=== PATIENT | female | born 1945 | race Caucasian/White ===

== ENCOUNTER → 2018-02-02 | Day surgery (SDC) | END | disposition home or self-care (01) | DX: Z45.2 Encounter for adjustment and management of vascular access device (principal) ==

== ENCOUNTER 2018-02-11 11:43 | Inpatient (IN) | payer MEDICARE, BC ==
[~2018-02-11] VITALS: Ht 152.4 cm; Wt 60.3 kg
[2018-02-11] VITALS: BP 106/78
[~2018-02-11 11:43] MED LIST: CALC667C6 PO; CARB1TAB39 PO; ENOX60DI8 SQ; OMEP20CA10 GT
[2018-02-11 12:17] LABS: BASOPHILS % (AUTO) 0.2 % (0.0-2.0); EOSINOPHILS % (AUTO) 0.1 % (0.0-6.0); HEMATOCRIT 22 % (33-45); HEMOGLOBIN 7.2 g/dL (11.5-14.8); LYMPHOCYTES # (AUTO) 0.5 /CMM (0.8-4.8); LYMPHOCYTES % (AUTO) 3.8 % (20.0-44.0); MEAN CORPUSCULAR HGB CONC 34 g/dl (31.0-36.0); MEAN CORPUSCULAR VOLUME 85 fL (82-100); MONOCYTES # (AUTO) 0.6 /CMM (0.1-1.30); MONOCYTES % (AUTO) 4.2 % (2.0-12.0); NEUTROPHILS # (AUTO) 12.4 /CMM (1.8-8.9); NEUTROPHILS % (AUTO) 91.7 % (43.0-81.0); PLATELET COUNT (AUTO) 363 /CMM (150-450); RED BLOOD CELL COUNT(AUTO) 2.52 MIL/uL (4.0-5.2); WHITE BLOOD COUNT (AUTO) 13.5 K/uL (4.3-11.0)
[2018-02-11] MEDS ORDERED: VANC1VIA2 IV (12:25)
[2018-02-11 12:45] LABS: ALANINE AMINOTRANSFERASE 19 U/L (12-78); ALBUMIN 1.7 g/dL (3.4-5.0); ALKALINE PHOSPHATASE 99 U/L (46-116); ASPARTATE AMINOTRANSFERASE 33 U/L (15-37); BILIRUBIN,DIRECT 0.1 mg/dL (0.0-0.2); BILIRUBIN,TOTAL 0.3 mg/dL (0.2-1.0); CALCIUM, SERUM 8.1 mg/dL (8.5-10.1); CARBON DIOXIDE 26 mmol/L (21-32); CHLORIDE 85 mmol/L (98-107); CREATININE 1.2 mg/dL (0.6-1.3); GLUCOSE 121 mg/dL (74-106); POTASSIUM 3.6 mmol/L (3.5-5.1); TOTAL PROTEIN, SERUM 5.1 g/dL (6.4-8.2); UREA NITROGEN, BLOOD 18 mg/dL (7-18)
[2018-02-11 12:50] LABS: APPEARANCE,URINE Clear (CLEAR); BILIRUBIN,URINE Negative (NEGATIVE); BLOOD, URINE Small Ery/uL (NEGATIVE); COLOR,URINE Yellow (YELLOW); KETONES,URINE Negative (NEGATIVE); LEUKOCYTE ESTERASE ,URINE Small (NEGATIVE); NITRITE, URINE Negative (NEGATIVE); PROTEIN,URINE 30 mg/dl (NEGATIVE); UGLUCOSE Negative (NEGATIVE); UROBILINOGEN,URINE 0.2 EU/dL (0.2)
[2018-02-11 12:58] LABS: SODIUM SERUM 117 mmol/L (136-145)
--- NOTE | 2018-02-11 12:59 | NUR ---
CALLED NURSING SUP REQUESTED TELE BED FOR THIS PATIENT.
[2018-02-11 13:12] LABS: BACTERIA,URINE Few /HPF (None Seen); SQUAMOUS EPITHELIAL CELL,UR Few /HPF (None Seen); YEAST,URINE Moderate /HPF (None Seen)
[2018-02-11] MEDS ORDERED: GENTAMICIN 80 MG in IV D5W 50 ML IV ONE (13:30)
[2018-02-11] MEDS ORDERED: IV NS 0.9% 500 ML BAG IV ONE (13:30)
--- NOTE | 2018-02-11 13:49 | NUR ---
PANEL ON-CALL PAGED
--- NOTE | 2018-02-11 14:38 | NUR ---
REPORT GIVEN TO ADELFO. AWAITING TRANFER TO FLOOR.
--- NOTE | 2018-02-11 15:15 | NUR ---
LONG FILLER CIGAR ROLLER MACHINEDIGESTER OPERATOR NOTES RECEIVED PT FROM ER TO ROOM 116-2 VIA [email or web address].ALERT/ORIENTED X1,NONVERBAL.ON TELE HR IS 90'S WITH SR.ON 2 L O2 VIA NC CONTINUOUSLY.NO SOB AND ACUTE DISTRESS NOTED.2LUMEN PICC LINE ON RIGHT UA,SITE IS CLEAN,DRY AND INTACT.IV 0.9% 500ML IS RUNNING.SKIN ASSESSMENT IS DONE,NOTED WITH PRESSURE SORE ON SACRAL AND BRUISES ON B/L ARMS.VITAL SIGNS ARE CHECKED AND RECORDED.SAFETY IS MAINTAINED AT ALL TIMES.BED IS IN LOW POSITION AND LOCKED.CALL LIGHT IS WITHIN REACH.WILL CONTINUE TO MONITOR THE PT CLOSELY.
[2018-02-11 16:00] VITALS: BP 125/67
--- NOTE | 2018-02-11 17:15 | NUR ---
PORTFOLIO ANALYST NOTES INGA JOSE SEEN THE PT AND ORDERED TO CHANGE FC PER FAMILY REQUEST.
[2018-02-11] MEDS ORDERED: FEE PK DOSING 1 MIN EA MC ONE (17:59)
[2018-02-11] MEDS ORDERED: MAGNESIUM HYDROXIDE 30 ML UDC PO PRN (18:00)
[2018-02-11] MEDS ORDERED: ONDANSETRON HCL/PF 4 MG/2 ML VIAL IVP PRN (18:00)
[2018-02-11] MEDS ORDERED: HYDROCODONE/APAP 5/325MG 1 EACH TABLET PO PRN (18:00)
[2018-02-11] MEDS ORDERED: Z GUARD REMEDY 2 OZ OINT TP PRN (18:00)
[2018-02-11] MEDS ORDERED: IV NS 0.9% 1,000 ML IV PRN ×2 (18:00→19:00)
[2018-02-11] MEDS ORDERED: ZOLPIDEM TARTRATE 5 MG TABLET PO PRN (18:00)
--- NOTE | 2018-02-11 18:30 | NUR ---
REGIONAL TRANSFER LIAISON NOTES FC 16FR IS CHANGED,GOOD URINE RETURN.NO COMPLICATIONS NOTED.
--- NOTE | 2018-02-11 18:49 | NUR ---
CALENDER MACHINE OPERATOR CLOSING NOTES PT IS LYING ON BED WITH 2L O2 VIA NC,TOLERATING WELL.NO SOB AND ACUTE DISTRESS NOTED.RESPIRATION IS EVEN AND NONLABORED.ENDORSED TO GOLD BUYER RN FOR FAUZIA AND FOLLOW UP WITH ABG.
[2018-02-11] MEDS: ACETYLCYSTEINE 10% SOLN 400 MG/4 ML VIAL NEB SCH ×2 (19:00→23:27)
--- NOTE | 2018-02-11 19:00 | NUR ---
Q8 MUCOMYST SCHEDULED @ 1900 NOT GIVEN, WILL ADMINISTER AT 2300 . NERI WOOD NOTIFIED.
[2018-02-11 19:22] LABS: ABG BASE EXCESS -0.4 mmol/L; ABG PCO2 34.8 mmHg (35.0-45.0); ABG PH 7.447 (7.350-7.450); ABG PO2 68.7 mmHg (75.0-100.0); AaDO2 89.9 mmHg; MetHb 0.8 % (0.0-1.5); O2Hb 92.3 % (94.0-97.0); SITE, ABG Right Radial; VENT MODE, BG NASAL CANNULA
[2018-02-11] MEDS: LEVOFLOXACIN 750 MG /D5W 150ML 750 MG in PREMIX 1 EA IV SCH (19:41)
[2018-02-11 20:00] VITALS: BP 91/51
--- NOTE | 2018-02-11 20:00 | NUR ---
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 NEEDS ATTENDED, CALL LIGHT WITHIN REACH.
[2018-02-11] MEDS: VANCOMYCIN 1 GM in IV D5W 250 ML IV SCH (20:24)
[2018-02-11 20:47] LABS: CALCIUM, SERUM 7.7 mg/dL (8.5-10.1); CARBON DIOXIDE 26 mmol/L (21-32); CHLORIDE 86 mmol/L (98-107); CREATININE 1.2 mg/dL (0.6-1.3); GLUCOSE 227 mg/dL (74-106); POTASSIUM 3.1 mmol/L (3.5-5.1); UREA NITROGEN, BLOOD 17 mg/dL (7-18)
[2018-02-11 20:51] LABS: SODIUM SERUM 118 mmol/L (136-145)
--- NOTE | 2018-02-11 22:10 | NUR ---
RN NOTES ABG DONE, DR. SALGADO NOTIFIED, NO NEW ORDERS
[2018-02-11] MEDS: IPRATROPIUM NEB FS 0.5 MG/2.5 ML AMPUL.NEB NEB PRN (23:28)
[2018-02-11] MEDS: ALBUTEROL FS 2.5 MG/0.5 ML VIAL.NEB NEB PRN (23:28)
[2018-02-12] VITALS: BP 106/78
[2018-02-12 01:27] LABS: CALCIUM, SERUM 8.2 mg/dL (8.5-10.1); CARBON DIOXIDE 26 mmol/L (21-32); CHLORIDE 88 mmol/L (98-107); CREATININE 1.2 mg/dL (0.6-1.3); GLUCOSE 111 mg/dL (74-106); POTASSIUM 3.4 mmol/L (3.5-5.1); SODIUM SERUM 121 mmol/L (136-145); UREA NITROGEN, BLOOD 16 mg/dL (7-18)
[2018-02-12] MEDS: IV NS 0.9% 1,000 ML IV PRN ×2 (03:41→09:22)
--- NOTE | 2018-02-12 03:43 | NUR ---
RN NOTES DR. NAOMI NAM REDUCED IVF RATE TO 60 CC/HR, PATIENT HAS CRACKLES TO LUNG SOUNDS.
[2018-02-12 04:09] VITALS: BP 105/68
--- NOTE | 2018-02-12 06:22 | NUR ---
RN NOTES PATIENT IS ALERT AND AWAKE, NON-VERBAL, ON 2LPM VIA NC, SPO2 98-100%, NOT IN APPARENT DISTRESS, ABG DONE, NO NEW ORDER, LUNG SOUNDS WITH CRACKLES, MD NOTIFIED, DECREASED IVF TO NS AT 60 CC/HR, HYPONATREMIA, SODIUM LEVEL 121, HGB 7.2. MEMBERSHIP ADVISOR NORRIS AWARE, NO BLOOD TRANSFUSION ORDER YET. SCHMITT CATHETER INSERTED BY AM NURSE 02/11/18, DRAINING WELL, JOSE PICC LINE IS PATENT AND SECURED WITH DRY AND INTACT DRESSING, SACRAL STAGE 4 DECUB, WOUND CARE PERFORMED, AWAITING WOUND CONSULT, NPO TILL ST EVAL, ID CONSULT, BREATHING TX, URINE STUDIES TO R/O SIADH, TREND SODIUM SERUM OSMOLALITY, SUCTION PRN
[2018-02-12] MEDS: ACETYLCYSTEINE 10% SOLN 400 MG/4 ML VIAL NEB SCH ×3 (06:59→22:55)
[2018-02-12 07:43] LABS: BASOPHILS % (AUTO) 0.1 % (0.0-2.0); EOSINOPHILS % (AUTO) 0.1 % (0.0-6.0); LYMPHOCYTES # (AUTO) 0.5 /CMM (0.8-4.8); LYMPHOCYTES % (AUTO) 4.1 % (20.0-44.0); MEAN CORPUSCULAR HGB CONC 34 g/dl (31.0-36.0); MEAN CORPUSCULAR VOLUME 85 fL (82-100); MONOCYTES # (AUTO) 0.5 /CMM (0.1-1.30); MONOCYTES % (AUTO) 4.3 % (2.0-12.0); NEUTROPHILS # (AUTO) 10.9 /CMM (1.8-8.9); NEUTROPHILS % (AUTO) 91.4 % (43.0-81.0); PLATELET COUNT (AUTO) 296 /CMM (150-450); RED BLOOD CELL COUNT(AUTO) 2.17 MIL/uL (4.0-5.2); WHITE BLOOD COUNT (AUTO) 11.9 K/uL (4.3-11.0)
[2018-02-12 08:00] VITALS: BP_SYST 103; BP_SYST 104; BP_DIAS 61; BP_DIAS 64
[2018-02-12 08:02] LABS: ALANINE AMINOTRANSFERASE 16 U/L (12-78); ALBUMIN 1.5 g/dL (3.4-5.0); ALKALINE PHOSPHATASE 85 U/L (46-116); ASPARTATE AMINOTRANSFERASE 24 U/L (15-37); BILIRUBIN,TOTAL 0.3 mg/dL (0.2-1.0); CARBON DIOXIDE 24 mmol/L (21-32); CHLORIDE 92 mmol/L (98-107); CREATININE 1.1 mg/dL (0.6-1.3); GLUCOSE 92 mg/dL (74-106); MAGNESIUM 1.4 mg/dL (1.8-2.4); PHOSPHORUS 3.1 mg/dL (2.5-4.9); POTASSIUM 3.3 mmol/L (3.5-5.1); SODIUM SERUM 125 mmol/L (136-145); TOTAL PROTEIN, SERUM 4.5 g/dL (6.4-8.2); UREA NITROGEN, BLOOD 17 mg/dL (7-18)
[2018-02-12 08:33] LABS: FERRITIN 1983 ng/mL (8-388); THYROID STIMULATING HORMONE 0.797 uIU/mL (0.358-3.74)
[2018-02-12 08:58] LABS: HEMATOCRIT 18 % (33-45); HEMOGLOBIN 6.2 g/dL (11.5-14.8)
[2018-02-12] MEDS: CARBIDOPA/LEVA CR 25/100MG 1 TAB.SA PO SCH (09:00)
[2018-02-12] MEDS: HEPARIN SODIUM, PORCINE 5000 UNITS/1 ML VIAL SQ SCH ×2 (09:00→21:43)
[2018-02-12] MEDS: Magnesium 1GM/D5W 100ML PREMIX 100 ML IV SCH ×3 (09:57→11:46)
[2018-02-12] MEDS ORDERED: POTASSIUM CHLORIDE 20 MEQ TAB.PRT.SR PO ONE (10:00)
[2018-02-12 10:04] LABS: IRON, SERUM 10 ug/dl (50-175); TOTAL IRON BINDING CAPACITY 101 ug/dl (250-450)
--- NOTE | 2018-02-12 10:41 | NUR ---
RN NOTES RECEIVED PT ALERT/ORIENTED X1,NONVERBAL.ON.ON 2 L O2 VIA NC CONTINUOUSLY.NO SOB AND ACUTE DISTRESS NOTED.2LUMEN PICC LINE ON RIGHT UA,SITE IS CLEAN,DRY AND INTACT.IV 0.9% 1000ML IS RUNNING AT 60 FOR 16 HOURS AND 40 MINUTES PER DOCTOR ORDERS.SKIN ASSESSMENT IS DONE,NOTED WITH PRESSURE SORE ON SACRAL AND BRUISES ON B/L ARMS.VITAL SIGNS ARE CHECKED AND RECORDED.SAFETY IS MAINTAINED AT ALL TIMES.BED IS IN LOW POSITION AND LOCKED.CALL LIGHT IS WITHIN REACH.WILL CONTINUE TO MONITOR THE PT CLOSELY.
[2018-02-12 12:00] VITALS: BP_SYST 103; BP_SYST 104; BP_DIAS 61; BP_DIAS 63
[2018-02-12 13:07] LABS: BASOPHILS % (AUTO) 0.1 % (0.0-2.0); LYMPHOCYTES # (AUTO) 0.4 /CMM (0.8-4.8); LYMPHOCYTES % (AUTO) 3.3 % (20.0-44.0); MEAN CORPUSCULAR HGB CONC 33 g/dl (31.0-36.0); MEAN CORPUSCULAR VOLUME 86 fL (82-100); MONOCYTES # (AUTO) 0.5 /CMM (0.1-1.30); MONOCYTES % (AUTO) 4.4 % (2.0-12.0); NEUTROPHILS # (AUTO) 11.5 /CMM (1.8-8.9); NEUTROPHILS % (AUTO) 92.2 % (43.0-81.0); PLATELET COUNT (AUTO) 329 /CMM (150-450); RED BLOOD CELL COUNT(AUTO) 2.29 MIL/uL (4.0-5.2); WHITE BLOOD COUNT (AUTO) 12.4 K/uL (4.3-11.0)
[2018-02-12 13:08] LABS: BAND % (MANUAL) 4 % (0.0-5.0); LYMPHOCYTES % (MANUAL) 7 % (16-48); MONOCYTES % (MANUAL) 7 % (0-11.0); NEUTROPHILS % (MANUAL) 82 (42-76)
[2018-02-12 13:59] LABS: HEMATOCRIT 20 % (33-45); HEMOGLOBIN 6.6 g/dL (11.5-14.8)
[2018-02-12] MEDS: VANCOMYCIN 1 GM in IV D5W 250 ML IV SCH (14:00)
[2018-02-12 16:00] VITALS: BP_SYST 103; BP_SYST 104; BP_DIAS 43; BP_DIAS 63
[2018-02-12 16:21] LABS: BAND % (MANUAL) 1 % (0.0-5.0); LYMPHOCYTES % (MANUAL) 4 % (16-48); MONOCYTES % (MANUAL) 4 % (0-11.0); NEUTROPHILS % (MANUAL) 90 (42-76); REACTIVE LYMPHOCYTES 1 % (0-0)
--- NOTE | 2018-02-12 18:22 | NUR ---
UNABLE TO OBTAIN MEDICAL RECORDS REQUESTION . hOSPITAL MEDICAL RECORDS CLOSED ON SUNDAYS. WILL ENDORSE TO NEXT SHIFT NURSE TO OBTAIN MEDICAL RECORDS TOMORROW WHICH IS A WEEK DAY.
[2018-02-12 20:00] VITALS: BP 132/57
--- NOTE | 2018-02-12 20:00 | NUR ---
NAMAN RN NOTE PT IS IN BED OBTUNDED. NO DISTRESS OR DISCOMFORT NOTED. NO S/S OF PAIN NOTED. ON TELE MONITOR SR HR 94. JOSE WITH PICC LINE INFUSING NS @ 60 ML/HR, NO S/S INFILTRATION NOTED. JOSE ALSO WEEPING KEPT THE ARM CLEAN AND DRY. REPOSITION HER FOR SKIN MANAGEMENT. SIDE RAILS UP X 3 AND CALL LIGHT WITHIN REACH. VSS. CONTINUE TO MONITOR HER.
[2018-02-12] MEDS: IPRATROPIUM NEB FS 0.5 MG/2.5 ML AMPUL.NEB NEB PRN (22:55)
[2018-02-12] MEDS: ALBUTEROL FS 2.5 MG/0.5 ML VIAL.NEB NEB PRN (22:55)
[2018-02-13] VITALS (11 sets, daily range): BP systolic 111–138; BP diastolic 54–72
--- NOTE | 2018-02-13 01:30 | NUR ---
NAMAN RN NOTE DR SALGADO INFORMED THAT PT DAUGHTER DO NOT WANT HEPARIN TO BE GIVEN. ALSO PT H/H IS LOW, GAVE NEW ORDER TO DC IT. ORDER NOTED AND CARRIED OUT.
--- NOTE | 2018-02-13 03:00 | NUR ---
NAMAN RN NOTE PT O2 SAT IS CAME DOWN TO 91% ON 3 L N/C. RT PUT THE MASK BACK ON WITH 5L O2 SAT CAME UP TO 96%. KEPT HER HOB ELEVATED. CONTINUE TO MONITOR HER.
[2018-02-13] MEDS: IV NS 0.9% 1,000 ML IV PRN (06:04)
--- NOTE | 2018-02-13 06:32 | NUR ---
NAMAN RN NOTE PT IN BED ASLEEP, AROUSABLE. NO DISTRESS OR DISCOMFORT NOTED. NO S/S OF PAIN NOTED. IVF NS INFUSING AT 60 ML/HR, NO S/S OF INFILTRATION NOTED. KEPT HER DRY AND CLEAN. REPOSITION HER Q2H, ALL NEEDS ATTENDED. SIDE RAILS UP X 3 AND CALL LIGHT WITHIN REACH. WILL ENDORSE TO DAY SHIFT NURSE FOR CONTINUE TO CARE.
--- NOTE | 2018-02-13 07:00 | NUR ---
RN NOTE RECEIVED PT ON BED , NONVERBAL, ON SIMPLE MASK AT 5L , O2 SAT 99% AT THIS TIME,NO DISTRESS NOTED , ON TELE SR, HR IN 80'S , SCHMITT DRAINING TO GRAVITY, RIGHT UPPER PICC LINE SITE CLEAN ,DRY AND INTACT, WITH NS AT 60 ML/HR RUNNING , SIDE RAILS UP X 3 AND CALL LIGHT WITHIN REACH. BED LOCKED AND IN LOWEST POSITION, CONTINUE TO MONITOR HER.
[2018-02-13 07:17] LABS: BASOPHILS % (AUTO) 0.3 % (0.0-2.0); EOSINOPHILS % (AUTO) 0.1 % (0.0-6.0); LYMPHOCYTES # (AUTO) 0.5 /CMM (0.8-4.8); LYMPHOCYTES % (AUTO) 4.5 % (20.0-44.0); MEAN CORPUSCULAR HGB CONC 34 g/dl (31.0-36.0); MEAN CORPUSCULAR VOLUME 86 fL (82-100); MONOCYTES # (AUTO) 0.6 /CMM (0.1-1.30); MONOCYTES % (AUTO) 5.2 % (2.0-12.0); NEUTROPHILS # (AUTO) 9.9 /CMM (1.8-8.9); NEUTROPHILS % (AUTO) 89.9 % (43.0-81.0); PLATELET COUNT (AUTO) 329 /CMM (150-450); RED BLOOD CELL COUNT(AUTO) 2.26 MIL/uL (4.0-5.2); WHITE BLOOD COUNT (AUTO) 11.1 K/uL (4.3-11.0)
[2018-02-13 07:27] LABS: HEMATOCRIT 20 % (33-45); HEMOGLOBIN 6.6 g/dL (11.5-14.8)
[2018-02-13 07:54] LABS: CALCIUM, SERUM 7.6 mg/dL (8.5-10.1); CARBON DIOXIDE 27 mmol/L (21-32); CHLORIDE 96 mmol/L (98-107); CREATININE 1.4 mg/dL (0.6-1.3); GLUCOSE 117 mg/dL (74-106); MAGNESIUM 2.2 mg/dL (1.8-2.4); PHOSPHORUS 4.1 mg/dL (2.5-4.9); POTASSIUM 3.7 mmol/L (3.5-5.1); SODIUM SERUM 130 mmol/L (136-145); UREA NITROGEN, BLOOD 16 mg/dL (7-18)
[2018-02-13] MEDS: ACETYLCYSTEINE 10% SOLN 400 MG/4 ML VIAL NEB SCH ×3 (07:56→23:33)
[2018-02-13] MEDS: VANCOMYCIN 1 GM in IV D5W 250 ML IV SCH (08:00)
[2018-02-13 08:05] LABS: URIC ACID 6.8 mg/dL (2.6-7.2)
[2018-02-13 08:10] LABS: BAND % (MANUAL) 1 % (0.0-5.0); LYMPHOCYTES % (MANUAL) 8 % (16-48); MONOCYTES % (MANUAL) 5 % (0-11.0); MYELOCYTES % 2 % (0-0); NEUTROPHILS % (MANUAL) 84 (42-76)
--- NOTE | 2018-02-13 08:17 | NUR ---
RN NOTES REPORT GIVEN TO AFSATU FOR CONTINUITY OF CARE .
--- NOTE | 2018-02-13 08:20 | NUR ---
CASE FITTER OPENING NOTES RECEIVED PT FROM RN IN STABLE CONDITION. PT IS NONVERBAL, RESPONSIVE TO TACTILE STIMULI, AND OPENING HER EYES SPONTANEOUSLY. NO SOB OR SCUTE SIGNS OF DISTRESS NOTED BREATHING IS EVEN AND UNLABORED. PT ON 4L VIA NC. CONTINUOUS PULSE OX NOTED. PT SATING WELL AT 97%. SHE IS CURRENTLY SR ON THE TELE MONITOR WITH A HR OF 98. SCHMITT CATHETER NOTED TO BE PATENT, INTACT, AND DRAINING CLEAR YELLOW URINE. RIGHT UPPER ARM PICC LINE NOTED. NO BLOOD RETURN NOTED AND UNABLE TO FLUSH PICC AT THIS TIME. NO BIOPATCH NOTED AROUND PICC LINE INSERTION SITE. WILL NOTIFY PICC LINE NURSE TO FURTHER ASSESS. NS HELD AT THIS TIME. BED IN LOW LOCKED POSITION, SIDE RIALS UP X3, CALL LIGHT WITHIN REACH, BED ALARM ON, ISOLATION PRECAUTION OBSERVED. PT'S CAREGIVER AT BEDSIDE. WILL CONTINUE TO MONITOR
--- NOTE | 2018-02-13 08:26 | NUR ---
OFFICE AGENT NOTES: VANCO ADMINISTRATION PT'S CURRENT VANCO TROUGH LEVEL IS 23. 0800 VANCO ADMINISTRATION HELD. PHARMACIST MADE AWARE
--- NOTE | 2018-02-13 08:48 | NUR ---
CLIENT CARE COORDINATOR NOTES: DIETARY COOPERATION PT'S CAREGIVER MADE AWARE THAT PT'S IS YET TO BE SEEN BY THE SPEECH THERAPIST AND THEREFORE SHOULD HOLD OFF ON FEEDING THE PT FOR RISK OF ASPIRATION. CAREGIVER IS ADAMANT ON FEEDING THE PT AND STATES THAT PT'S FAMILY DOES NOT WANT HER TO BE SEEN BY THE SPEECH THERAPIST NOR DO THEY WANT HER NPO. PRIMARY MD MADE AWARE
--- NOTE | 2018-02-13 09:23 | NUR ---
TRAFFIC OR SYSTEM DISPATCHER NOTES: PICC LINE PT'S PICC LINE NOTED TO HAVE NO BLOOD RETURN AND IS NOT FLUSHING. PICC LINE NURSE AT BEDSIDE AND STATES THAT PT WILL NEED A NEW PICC DOUBLE LUMEN PICC LINE INSERTED 35CM. PICC LINE PATENT AND INTACT. BLOOD RETURN NOTED. CENTRAL LINE DRESSINGS, CLEAN ,DRY, AND INTACT. PT TOLERATING NS INFUSION WELL
[2018-02-13] MEDS: CARBIDOPA/LEVA CR 25/100MG 1 TAB.SA PO SCH (09:45)
[2018-02-13] MEDS ORDERED: LIDOCAINE 2%-EPI 1:100,000 30 ML VIAL TP ONE (11:30)
[2018-02-13] MEDS ORDERED: SILVER NITRATE APPLICATOR 1 EA BOX TP ONE (11:30)
[2018-02-13] MEDS: DAKINS QUARTER STRENGTH (0.125%) 480 ML BOTTLE TOP SCH (13:15)
[2018-02-13] MEDS: COD LIVER OIL/ZINC OXIDE 120 GM TUBE TP SCH ×3 (13:16→20:06)
[2018-02-13] MEDS: NYSTATIN/TRIAMCIN CREAM 15 GM TUBE TP SCH (13:16)
[2018-02-13] MEDS ORDERED: FUROSEMIDE 20 MG/2 ML VIAL IV ONE (14:00)
--- NOTE | 2018-02-13 14:30 | NUR ---
MANAGER VALIDATION NOTES: [facility] RECOR[facility] TELEPHONE CONSENT OBTAINED FROM PT'S DAUGHTER IN REGARDS TO OBTAINING THE PT'S MEDICAL INFORMATION FROM [facility]. A FAX WAS SENT TO THE MEDICAL RECORDS DEPARTMENT AND TELEPHONE CONFIRMATION OF FAX DELIVERY. WILL AWAIT PT'S RECORDS
--- NOTE | 2018-02-13 17:58 | NUR ---
LICENSED PROSTHETIST/ORTHOTIST NOTES: SPEECH THERAPIST F/U SPEECH THERAPIST AT BEDSIDE WITH PT'S DAUGHTER. PT'S DAUGHTER EDUCATED ON ASPIRATION PRECAUTIONS AND RISK. PER SPEECH THERAPIST "A MECHANICAL SOFT AND OR GROUND DIET MAY BE ORDERED FOR THE PT ALONG WITH HONEY THICK LIQUIDS". PT IN AGRREMENT OF DIET RECOMMENDATIONS
--- NOTE | 2018-02-13 19:37 | NUR ---
FINISHING ROOM SUPERVISOR CLOSING NOTES PT REMAIN S/P 1 UNIT PRBC. VSS THROUGHOUT TRANSFUSION. NO S/S OF TRANSFUSION REACTION. RIGHT UPPER ARM PICC LINE REMAINS PATENT AND INTACT. PT REPOSITIONED AND TURNED PER PROTOCOL. WOUND AND SKIN CARE RENDERED. SHE REMAINS SR ON THE TELE MONITOR. SAFETY MEASURES IN PLACE. ENDORSED TO NIGHTSHIFT RN FOR FAUZIA
--- NOTE | 2018-02-13 19:39 | NUR ---
COMPOUND COATING MACHINE OFFBEARER NOTE PATIENT RECEIVED IN BED POST I PRBC TRANSFUSION, REPEAT H/H SCHEDULED AT 1999. PATIENT STABLE SLEEPING, V/S WNL. PATIENT HAS VANCO TROUGH AT 1999 TO DETERMINE POSSIBLE VANCO ADMINISTRATION AT 2100. PATIENT IN NO APPARENT RESPIRATORY DISTRESS. HR WN Addendum: 02/13/18 at 1944 by VIRGINIA NELSON RN HR WNL,. RN WILL CONTINUE TO MONITOR PATIENT CLOSELY. BED IN LOWEST LOCKED POSITION, SIDE RAILS UP X 3, CALL LIGHT WITHIN REACH.
[2018-02-13] MEDS: LEVOFLOXACIN 750 MG /D5W 150ML 750 MG in PREMIX 1 EA IV SCH (20:05)
[2018-02-13 20:31] LABS: HEMOGLOBIN 7.2 g/dL (11.5-14.8)
[2018-02-13] MEDS ORDERED: VANCOMYCIN 1 GM in IV D5W 250 ML IV SCH (21:00)
--- NOTE | 2018-02-13 21:02 | NUR ---
CORPORATE RECEPTIONIST NOTE MALINDA HEMPHILL CAME BACK AT 22 HELPMALINDA MD INSTRUCTION TO HOLD IF OVER 20. MD AWARE NO NEW ORDERS GIVEN. Addendum: 02/13/18 at 2104 by VIRGINIA NELSON RN HEMOGLOBIN WENT UP TO 7.2 1 HOUR POST RBC.
[2018-02-14] VITALS: BP 105/52
--- NOTE | 2018-02-14 | NUR ---
ENAMEL BURNER NOTE AIR MATTTRESS APPLIED ODERED. WOUND CARE RENDERED. PATIENT TURNED AND REPOSTIIONED
[2018-02-14] MEDS: COD LIVER OIL/ZINC OXIDE 120 GM TUBE TP SCH ×7 (00:40→23:46)
[2018-02-14] MEDS: NYSTATIN/TRIAMCIN CREAM 15 GM TUBE TP SCH ×3 (00:40→23:45)
--- NOTE | 2018-02-14 02:04 | NUR ---
METAL CONTROL COORDINATOR NOTE BED BATH GIVEN, PATIENT TURNED AND REPOSITIONED
[2018-02-14 04:00] VITALS: BP 128/65
[2018-02-14 06:45] LABS: HEMATOCRIT 21 % (33-45); LYMPHOCYTES # (AUTO) 0.4 /CMM (0.8-4.8); LYMPHOCYTES % (AUTO) 3.4 % (20.0-44.0); MEAN CORPUSCULAR HGB CONC 34 g/dl (31.0-36.0); MEAN CORPUSCULAR VOLUME 87 fL (82-100); MONOCYTES # (AUTO) 0.5 /CMM (0.1-1.30); MONOCYTES % (AUTO) 4.4 % (2.0-12.0); NEUTROPHILS # (AUTO) 11.3 /CMM (1.8-8.9); NEUTROPHILS % (AUTO) 92.2 % (43.0-81.0); PLATELET COUNT (AUTO) 310 /CMM (150-450); WHITE BLOOD COUNT (AUTO) 12.3 K/uL (4.3-11.0)
[2018-02-14 06:54] LABS: CALCIUM, SERUM 8.2 mg/dL (8.5-10.1); CARBON DIOXIDE 27 mmol/L (21-32); CHLORIDE 98 mmol/L (98-107); CREATININE 1.4 mg/dL (0.6-1.3); GLUCOSE 110 mg/dL (74-106); MAGNESIUM 1.8 mg/dL (1.8-2.4); PHOSPHORUS 3.1 mg/dL (2.5-4.9); POTASSIUM 3.2 mmol/L (3.5-5.1); SODIUM SERUM 134 mmol/L (136-145); UREA NITROGEN, BLOOD 17 mg/dL (7-18)
--- NOTE | 2018-02-14 07:01 | NUR ---
HOTEL ATTENDANT NOTE AT 0654, RN WAS NOTIFIED OF LOW HGB 7.0 AND HEMATOCRIT 27. WILL ENDORSE TO AM SHIFT AND AM COVERING MD DR SALGADO STATE
[2018-02-14] MEDS: ALBUTEROL FS 2.5 MG/0.5 ML VIAL.NEB NEB PRN ×2 (07:09→15:37)
[2018-02-14] MEDS: ACETYLCYSTEINE 10% SOLN 400 MG/4 ML VIAL NEB SCH ×3 (07:09→23:24)
[2018-02-14 08:00] VITALS: BP 121/72
[2018-02-14] MEDS ORDERED: CARBIDOPA/LEVA CR 25/100MG 1 TAB.SA PO SCH (09:00)
--- NOTE | 2018-02-14 10:10 | NUR ---
WOUND CARE CONSULT WOUND CARE RECEIVED CONSULT FOR SACRAL PRESSURE SORE. WOUND CARE WILL DEFER CONSULT AND ALL TREATMENT PLANS TO PLASTIC SURGICAL TEAM AND DPM DR CORTEZ AT THIS TIME THEY ARE CURRENTLY FOLLOWING. PATIENT WITH DONN AT 11, ALL PRESSURE ULCER PREVENTION MEASURES ARE NOTED TO BE IN PLACE. WILL SEE PRN.
[2018-02-14] MEDS: IV NS 0.9% 1,000 ML IV PRN (11:22)
[2018-02-14] MEDS: DAKINS QUARTER STRENGTH (0.125%) 480 ML BOTTLE TOP SCH (11:23)
[2018-02-14 12:00] VITALS: BP 109/62
[2018-02-14] MEDS: CARBIDOPA/LEVA CR 25/100MG 1 TAB.SA PO SCH (12:09)
[2018-02-14] MEDS: POTASSIUM CHLORIDE 20 MEQ TAB.PRT.SR PO SCH ×2 (12:10→14:20)
[2018-02-14] MEDS: VANCOMYCIN 0.75 GM in IV D5W 250 ML IV SCH (14:36)
[2018-02-14 16:00] VITALS: BP 124/63
[2018-02-14] MEDS ORDERED: FUROSEMIDE 20 MG/2 ML VIAL IV ONE (19:00)
--- NOTE | 2018-02-14 19:30 | NUR ---
VICE PRESIDENT OF PRODUCT MARKETING NOTE PATIENT RESTING IN BED IN STABLE CONDITION, DAUGHTER AT BEDSIDE. SATURATING WELL ON 2LPM NASAL CANNULA. PICC LINE ON RIGHT UPPER ARM INTACT SALINE LOCK. SIDE RAILS UP, BED ALARM ON, BED IN LOW LOCKED POSITION, ENDORSED TO GLASS TINTER NURSE FOR CONTINUITY OF CARE.
--- NOTE | 2018-02-14 19:45 | NUR ---
DIE TROUBLE SHOOTER NOTE: RECEIVED PT ON BED ALERT BUT NON VERBAL, OPENS EYES. DAUGHTER AT BEDSIDE. NO APPARENT DISTRESS NOTED. ON 2LPM NASAL CANNULA, SATURATING WELL. NO FACIAL GRIMACING OR ANY SIGNS OF PAIN NOTED. ON TELE MONITOR SINUS TACHY HR 110 BPM. RIGHT UPPER ARM PICC LINE INTACT AND PATENT, FLUSHING WELL. KEPT CLEAN, DRY AND COMFORTABLE. SAFETY AND FALL PRECAUTIONS OBSERVED AND MAINTAINED. WILL CONTINUE TO MONITOR PT.
[2018-02-14 20:00] VITALS: BP 114/59
[2018-02-14 20:33] LABS: BASOPHILS % (AUTO) 0.1 % (0.0-2.0); EOSINOPHILS % (AUTO) 0.2 % (0.0-6.0); HEMATOCRIT 21 % (33-45); HEMOGLOBIN 7.1 g/dL (11.5-14.8); LYMPHOCYTES # (AUTO) 0.5 /CMM (0.8-4.8); LYMPHOCYTES % (AUTO) 3.5 % (20.0-44.0); MEAN CORPUSCULAR HGB CONC 34 g/dl (31.0-36.0); MEAN CORPUSCULAR VOLUME 86 fL (82-100); MONOCYTES # (AUTO) 0.6 /CMM (0.1-1.30); MONOCYTES % (AUTO) 4.6 % (2.0-12.0); NEUTROPHILS # (AUTO) 12.3 /CMM (1.8-8.9); NEUTROPHILS % (AUTO) 91.6 % (43.0-81.0); PLATELET COUNT (AUTO) 311 /CMM (150-450); RED BLOOD CELL COUNT(AUTO) 2.42 MIL/uL (4.0-5.2); WHITE BLOOD COUNT (AUTO) 13.4 K/uL (4.3-11.0)
[2018-02-15] VITALS: BP 101/50
[2018-02-15 04:00] VITALS: BP_SYST 107; BP_SYST 154; BP_DIAS 55; BP_DIAS 78
[2018-02-15] MEDS: COD LIVER OIL/ZINC OXIDE 120 GM TUBE TP SCH ×5 (04:12→20:33)
--- NOTE | 2018-02-15 06:44 | NUR ---
HOG COUNTER NOTE: NO CHANGES NOTED THROUGHOUT THE SHIFT. NO APPARENT DISTRESS NOTED. NO FACIAL GRIMACING OR ANY SIGNS OF PAIN NOTED. RIGHT UPPER ARM PICC LINE INTACT AND PATENT, FLUSHING WELL. SCHMITT CATH INTACT, DRAINED 1100CC OF CLEAR YELLOW URINE OUTPUT. KEPT CLEAN, DRY AND COMFORTABLE. WOUND TREATMENT DONE. TURNED AND REPOSITIONED PT. SAFETY AND FALL PRECAUTIONS OBSERVED AND MAINTAINED. WILL ENDORSE TO DAY SHIFT FOR CONTINUITY OF CARE.
[2018-02-15 06:51] LABS: BASOPHILS % (AUTO) 0.2 % (0.0-2.0); EOSINOPHILS % (AUTO) 0.4 % (0.0-6.0); HEMATOCRIT 21 % (33-45); LYMPHOCYTES # (AUTO) 0.5 /CMM (0.8-4.8); LYMPHOCYTES % (AUTO) 4.6 % (20.0-44.0); MEAN CORPUSCULAR HGB CONC 33 g/dl (31.0-36.0); MEAN CORPUSCULAR VOLUME 87 fL (82-100); MONOCYTES # (AUTO) 0.5 /CMM (0.1-1.30); MONOCYTES % (AUTO) 4.6 % (2.0-12.0); NEUTROPHILS # (AUTO) 10.5 /CMM (1.8-8.9); NEUTROPHILS % (AUTO) 90.2 % (43.0-81.0); PLATELET COUNT (AUTO) 308 /CMM (150-450); RED BLOOD CELL COUNT(AUTO) 2.42 MIL/uL (4.0-5.2); WHITE BLOOD COUNT (AUTO) 11.7 K/uL (4.3-11.0)
--- NOTE | 2018-02-15 07:00 | NUR ---
NON DESTRUCTIVE TESTING SUPERVISOR OPENING NOTES RECEIVED PT IN BED, AWAKE. RESPONSIVE TO LIGHT PAIN. PT NOT IN RESP DISTRESS; O2 SAT WNL ON 2L NC. ON TELE SR 90'S. BP STABLE AND NO S/SX OF PAIN NOTED. JOSE PICC LINE DRESSING INTACT. NO S/SX OF INFECTION. BED IN LOCKED/LOWEST POSITION. CALL LIGHT IN REACH. WILL CONT TO MONITOR.
[2018-02-15 08:00] VITALS: BP 127/65
[2018-02-15 08:15] LABS: ALANINE AMINOTRANSFERASE 13 U/L (12-78); ALBUMIN 1.6 g/dL (3.4-5.0); ALKALINE PHOSPHATASE 473 U/L (46-116); ASPARTATE AMINOTRANSFERASE 31 U/L (15-37); BILIRUBIN,TOTAL 0.3 mg/dL (0.2-1.0); CALCIUM, SERUM 8.4 mg/dL (8.5-10.1); CARBON DIOXIDE 27 mmol/L (21-32); CHLORIDE 99 mmol/L (98-107); CREATININE 1.3 mg/dL (0.6-1.3); GLUCOSE 114 mg/dL (74-106); MAGNESIUM 1.7 mg/dL (1.8-2.4); PHOSPHORUS 3.1 mg/dL (2.5-4.9); POTASSIUM 3.8 mmol/L (3.5-5.1); SODIUM SERUM 134 mmol/L (136-145); TOTAL PROTEIN, SERUM 4.8 g/dL (6.4-8.2); UREA NITROGEN, BLOOD 20 mg/dL (7-18)
[2018-02-15] MEDS: CARBIDOPA/LEVA CR 25/100MG 1 TAB.SA PO SCH (08:25)
[2018-02-15] MEDS: ACETYLCYSTEINE 10% SOLN 400 MG/4 ML VIAL NEB SCH ×3 (08:30→23:35)
[2018-02-15] MEDS: DAKINS QUARTER STRENGTH (0.125%) 480 ML BOTTLE TOP SCH (10:00)
[2018-02-15] MEDS: NYSTATIN/TRIAMCIN CREAM 15 GM TUBE TP SCH (11:31)
[2018-02-15] MEDS: Magnesium 1GM/D5W 100ML PREMIX 100 ML IV SCH ×2 (11:39→13:22)
[2018-02-15 12:00] VITALS: BP 118/69
--- NOTE | 2018-02-15 13:00 | NUR ---
TRAIN EXAMINER NOTES PER SPEECH THERAPIST, DAUGHTER UNDERSTANDS THAT PT IS AT RISK FOR ASPIRATION WITH MECH SOFT DIET. DAUGHTER STILL WANTS MECH SOFT DIET FOR PT AGAINST SPEECH THERAPISTS RECOMMENDATIONS. PER SPEECH THERAPIST, OPERATIONS AND INTELLIGENCE ASSISTANT WILL FEED PT BUT IF OPERATIONS AND INTELLIGENCE ASSISTANT NOTICES COUGHING WILL STOP FEEDING. DAUGHTER EXPRESSES UNDERSTANDING.
[2018-02-15] MEDS: VANCOMYCIN 0.75 GM in IV D5W 250 ML IV SCH (13:41)
[2018-02-15 16:00] VITALS: BP 131/73
--- NOTE | 2018-02-15 17:14 | NUR ---
METAL SOLDERER NOTES DR WILCOX ROUNDING WITH PT
--- NOTE | 2018-02-15 17:58 | NUR ---
GLASSWARE MAKER DEMONSTRATOR NOTES PT COUGHS WHEN EATING SOLID FOODS. FLATTENING PRESS OPERATOR WAS ABLE TO FEED 50% OF DINNER
--- NOTE | 2018-02-15 19:15 | NUR ---
FINISH CLEANER NOTES PT ENDORSED TO PM NURSE FOR FAUZIA. NURSE WILL ENDORSE TO AM SHIFT TO [facility] PT IS NOT IN RESP DISTRESS AT THIS TIME. ALL NEEDS ATTENDED TO. DISCUSSED POC WITH FAMILY AND ANY CHANGES PER MD AT THIS TIME. BED IN LOCKED/LOWEST POSITION. CALL LIGHT IN REACH.
--- NOTE | 2018-02-15 19:15 | NUR ---
TELE/RN INITIAL NOTES RECEIVED PT IN BED, ALERT BUT NON VERBAL, OPENS EYES. SR HR 90S ON TELEMONITOR. IN NO SIGNS OF PAIN NOTED. ON 4L O2 VIA NC, TOLERATING WELL. NO SOB NOTED. FC INTACT AND IN PLACED. JOSE PICC LINE PATENT, C/D/I. HOB ELEVATED. SAFETY MEASURES IN PLACED. CALL LIGHT WITHIN EASY REACH. WILL CONT TO MONITOR
[2018-02-15 20:00] VITALS: BP 115/63
[2018-02-15] MEDS: LEVOFLOXACIN 750 MG /D5W 150ML 750 MG in PREMIX 1 EA IV SCH (20:32)
[2018-02-16] VITALS (7 sets, daily range): BP systolic 93–120; BP diastolic 55–70
[2018-02-16] MEDS: COD LIVER OIL/ZINC OXIDE 120 GM TUBE TP SCH ×6 (00:02→20:02)
[2018-02-16] MEDS: NYSTATIN/TRIAMCIN CREAM 15 GM TUBE TP SCH ×2 (00:02→11:25)
--- NOTE | 2018-02-16 07:01 | NUR ---
RN NOTES PT IN STABLE CONDITION. NO ACUTE CHANGES THROUGHOUT SHIFT. ALL NEEDS ATTENDED. SAFETY MEASURES AND ASPIRATION PRECAUTION OBSERVED AT ALL TIMES. ENDORSED TO AM SHIFT RN FOR FAUZIA
[2018-02-16 07:19] LABS: BASOPHILS % (AUTO) 0.1 % (0.0-2.0); EOSINOPHILS % (AUTO) 0.8 % (0.0-6.0); HEMATOCRIT 21 % (33-45); HEMOGLOBIN 7.1 g/dL (11.5-14.8); LYMPHOCYTES # (AUTO) 0.7 /CMM (0.8-4.8); LYMPHOCYTES % (AUTO) 5.1 % (20.0-44.0); MEAN CORPUSCULAR HGB CONC 33 g/dl (31.0-36.0); MEAN CORPUSCULAR VOLUME 87 fL (82-100); MONOCYTES # (AUTO) 0.6 /CMM (0.1-1.30); MONOCYTES % (AUTO) 4.2 % (2.0-12.0); NEUTROPHILS # (AUTO) 12.8 /CMM (1.8-8.9); NEUTROPHILS % (AUTO) 89.8 % (43.0-81.0); PLATELET COUNT (AUTO) 308 /CMM (150-450); RED BLOOD CELL COUNT(AUTO) 2.43 MIL/uL (4.0-5.2); WHITE BLOOD COUNT (AUTO) 14.3 K/uL (4.3-11.0)
[2018-02-16] MEDS: ACETYLCYSTEINE 10% SOLN 400 MG/4 ML VIAL NEB SCH ×3 (07:35→22:44)
[2018-02-16 07:36] LABS: CALCIUM, SERUM 8.5 mg/dL (8.5-10.1); CARBON DIOXIDE 31 mmol/L (21-32); CHLORIDE 98 mmol/L (98-107); CREATININE 1.4 mg/dL (0.6-1.3); GLUCOSE 101 mg/dL (74-106); MAGNESIUM 2.2 mg/dL (1.8-2.4); PHOSPHORUS 2.9 mg/dL (2.5-4.9); POTASSIUM 3.6 mmol/L (3.5-5.1); SODIUM SERUM 133 mmol/L (136-145); UREA NITROGEN, BLOOD 27 mg/dL (7-18)
[2018-02-16 08:23] LABS: BAND % (MANUAL) 3 % (0.0-5.0); EOSINOPHILS % (MANUAL) 1 % (0-4); LYMPHOCYTES % (MANUAL) 8 % (16-48); MONOCYTES % (MANUAL) 3 % (0-11.0); NEUTROPHILS % (MANUAL) 85 (42-76)
[2018-02-16] MEDS: CARBIDOPA/LEVA CR 25/100MG 1 TAB.SA PO SCH (08:41)
[2018-02-16] MEDS: DAKINS QUARTER STRENGTH (0.125%) 480 ML BOTTLE TOP SCH (08:43)
[2018-02-16] MEDS ORDERED: MAGNESIUM HYDROXIDE 30 ML UDC PO PRN (09:00)
[2018-02-16] MEDS ORDERED: VANCOMYCIN 0.75 GM in IV D5W 250 ML IV SCH (14:00)
[2018-02-16] MEDS: ALBUTEROL FS 2.5 MG/0.5 ML VIAL.NEB NEB PRN ×2 (15:30→22:45)
--- NOTE | 2018-02-16 19:25 | NUR ---
JASMINASURMONICA RN NOTE PATIENT RESTING IN BED IN STABLE CONDITION, NO RESPIRATORY DISTRESS NOTED, NO SIGNS OF PAIN. ON O2 VIA NASAL CANNULA AT 4LPM. PICC LINE INTACT SALINE LOCK ON RIGHT UPPER ARM. BED IN LOW LOCKED POSITION, ALARM ON, SIDE RAILS UP, ENDORSED TO CERTIFIED DIETARY MANAGER NURSE FOR CONTINUITY OF CARE.
[2018-02-16] MEDS: IPRATROPIUM NEB FS 0.5 MG/2.5 ML AMPUL.NEB NEB PRN (22:45)
[2018-02-17] MEDS: NYSTATIN/TRIAMCIN CREAM 15 GM TUBE TP SCH ×2 (00:01→08:00)
[2018-02-17] MEDS: COD LIVER OIL/ZINC OXIDE 120 GM TUBE TP SCH ×6 (00:01→20:25)
[2018-02-17 04:00] VITALS: BP 122/64
--- NOTE | 2018-02-17 06:46 | NUR ---
RN NOTE PATIENT HAD BM X 1, WAS NOT ABLE TO COLLECT BC SATURATED IN THE DIAPER, CHARGE NURSE IS AWARE, WILL ENDORSE TO AM SHIFT TO FOLLOW UP
[2018-02-17] MEDS: ACETYLCYSTEINE 10% SOLN 400 MG/4 ML VIAL NEB SCH ×3 (07:28→23:11)
[2018-02-17 08:00] VITALS: BP 103/50
[2018-02-17 08:10] LABS: BASOPHILS % (AUTO) 0.1 % (0.0-2.0); EOSINOPHILS % (AUTO) 0.5 % (0.0-6.0); HEMATOCRIT 26 % (33-45); HEMOGLOBIN 8.4 g/dL (11.5-14.8); LYMPHOCYTES # (AUTO) 0.8 /CMM (0.8-4.8); LYMPHOCYTES % (AUTO) 4.7 % (20.0-44.0); MEAN CORPUSCULAR HGB CONC 33 g/dl (31.0-36.0); MEAN CORPUSCULAR VOLUME 88 fL (82-100); MONOCYTES % (AUTO) 5.6 % (2.0-12.0); NEUTROPHILS # (AUTO) 15.8 /CMM (1.8-8.9); NEUTROPHILS % (AUTO) 89.1 % (43.0-81.0); PLATELET COUNT (AUTO) 340 /CMM (150-450); RED BLOOD CELL COUNT(AUTO) 2.91 MIL/uL (4.0-5.2); WHITE BLOOD COUNT (AUTO) 17.7 K/uL (4.3-11.0)
[2018-02-17 08:24] LABS: CALCIUM, SERUM 8.8 mg/dL (8.5-10.1); CARBON DIOXIDE 29 mmol/L (21-32); CHLORIDE 97 mmol/L (98-107); CREATININE 1.3 mg/dL (0.6-1.3); GLUCOSE 107 mg/dL (74-106); MAGNESIUM 2.2 mg/dL (1.8-2.4); PHOSPHORUS 3.4 mg/dL (2.5-4.9); POTASSIUM 4.5 mmol/L (3.5-5.1); SODIUM SERUM 134 mmol/L (136-145); UREA NITROGEN, BLOOD 32 mg/dL (7-18)
[2018-02-17] MEDS: CARBIDOPA/LEVA CR 25/100MG 1 TAB.SA PO SCH (09:00)
[2018-02-17] MEDS: DAKINS QUARTER STRENGTH (0.125%) 480 ML BOTTLE TOP SCH (09:21)
[2018-02-17 12:00] VITALS: BP 103/50
--- NOTE | 2018-02-17 12:00 | NUR ---
STOOL SAMPLE COLLECTED AND SENT TO LAB.
[2018-02-17 13:41] LABS: OCCULT BLOOD STOOL NEGATIVE (NEGATIVE)
[2018-02-17] MEDS: PROSOURCE / PROSTAT (PYXIS) 30 ML UDC PO SCH ×2 (14:57→17:00)
[2018-02-17 16:00] VITALS: BP 104/56
--- NOTE | 2018-02-17 16:00 | NUR ---
uRINE SAMPLE COLLECTED AND SENT TO LAB
--- NOTE | 2018-02-17 16:18 | NUR ---
made aware cherry Ayon pt fever 99 and hr 125
[2018-02-17] MEDS: ACETAMINOPHEN 325 MG TABLET PO PRN (16:21)
[2018-02-17 17:00] LABS: BILIRUBIN,DIRECT 0.1 mg/dL (0.0-0.2); BILIRUBIN,TOTAL 0.3 mg/dL (0.2-1.0)
[2018-02-17 17:57] LABS: ABG BASE EXCESS 4.2 mmol/L; ABG OXYGEN SATURATION 96.7 % (92.0-98.5); ABG PCO2 41.7 mmHg (35.0-45.0); ABG PH 7.453 (7.350-7.450); AaDO2 148.2 mmHg; COHb 0.3 % (0.5-1.5); MetHb 0.8 % (0.0-1.5); O2Hb 95.6 % (94.0-97.0); SITE, ABG Left Radial; VENT MODE, BG NC 4L
--- NOTE | 2018-02-17 19:00 | NUR ---
CLOSING NOTES PT IN BED, ALERT BUT NON VERBAL, OPENS EYES. SR HR 120S ON TELEMONITOR AT THIS TIME PER Emilia n.p. IN NO SIGNS OF PAIN NOTED. ON 4L O2 VIA NC, TOLERATING WELL. NO SOB NOTED. FC INTACT AND IN PLACED. JOSE PICC LINE PATENT, C/D/I. HOB ELEVATED. SAFETY MEASURES IN PLACE.WOUND CARE DONE. PT TURNED AND REPOSITIONED Q2H, KEPT CLEAN AND COMFORTABLE.
--- NOTE | 2018-02-17 19:25 | NUR ---
placed NPO (including meds) for the patient per Mar Ayon
--- NOTE | 2018-02-17 19:45 | NUR ---
CYBER SPECIAL AGENT NOTE: RECEIVED PT ON BED ALERT BUT NON VERBAL, OPENS EYES. NO APPARENT DISTRESS NOTED. ON 4LPM NASAL CANNULA, SATURATING WELL. NO FACIAL GRIMACING OR ANY SIGNS OF PAIN NOTED. ON TELE MONITOR SINUS TACHY HR 110 BPM. RIGHT UPPER ARM PICC LINE INTACT AND PATENT, FLUSHING WELL. KEPT CLEAN, DRY AND COMFORTABLE. SAFETY AND FALL PRECAUTIONS OBSERVED AND MAINTAINED. WILL CONTINUE TO MONITOR PT.
[2018-02-17 20:00] VITALS: BP 101/54
[2018-02-17] MEDS: METRONIDAZOLE 500MG/ NS 100ML 500 MG in PREMIX 1 EA IV SCH (20:47)
[2018-02-17] MEDS: LEVOFLOXACIN 750 MG /D5W 150ML 750 MG in PREMIX 1 EA IV SCH (21:48)
[2018-02-18] VITALS (7 sets, daily range): BP systolic 101–118; BP diastolic 54–67
[2018-02-18] MEDS: COD LIVER OIL/ZINC OXIDE 120 GM TUBE TP SCH ×7 (00:05→23:56)
[2018-02-18] MEDS: NYSTATIN/TRIAMCIN CREAM 15 GM TUBE TP SCH ×2 (00:05→12:18)
[2018-02-18] MEDS: METRONIDAZOLE 500MG/ NS 100ML 500 MG in PREMIX 1 EA IV SCH ×2 (04:13→12:17)
--- NOTE | 2018-02-18 06:57 | NUR ---
DISPATCHER RADIOACTIVE WASTE DISPOSAL NOTE: NO CHANGES NOTED THROUGHOUT THE SHIFT. NO APPARENT DISTRESS NOTED. ON 4LPM NASAL CANNULA, SATURATING WELL. ON TELE MONITOR SINUS RHYTHM HR 98 BPM. RIGHT UPPER ARM PICC LINE INTACT AND PATENT. SCHMITT CATH DRAINING WELL ON GRAVITY. HEAD OF BED KEPT ELEVATED. KEPT CLEAN, DRY AND COMFORTABLE. SAFETY AND FALL PRECAUTIONS OBSERVED AND MAINTAINED. WILL ENDORSE TO DAY SHIFT RN FOR CONTINUITY OF CARE.
--- NOTE | 2018-02-18 07:30 | NUR ---
RN NOTES RECEIVED PATIENT IN BED WITH BREATHING NORMAL, EVEN AND UNLABORED. NO SOB NOTED. NO ACUTE DISTRESS NOTED. ON 4L O2 VIA NC, SATURATING WELL. TELE MONITOR REVEALS ST, FT=[id number]. JOSE PICC LINE IS PATENT AND INTACT. F/C IS PATENT AND INTACT, DRAINING WITH GRAVITY. KEPT CLEAN, DRY AND COMFORTABLE. ALL NEEDS ATTENDED SAFETY MEASURE OBSERVED. CALL LIGHT WITH IN REACH. WILL CONT TO MONITOR.
[2018-02-18] MEDS: ALBUTEROL FS 2.5 MG/0.5 ML VIAL.NEB NEB PRN (07:32)
[2018-02-18] MEDS: ACETYLCYSTEINE 10% SOLN 400 MG/4 ML VIAL NEB SCH ×2 (07:32→15:49)
[2018-02-18] MEDS: DAKINS QUARTER STRENGTH (0.125%) 480 ML BOTTLE TOP SCH (08:29)
[2018-02-18] MEDS: PROSOURCE / PROSTAT (PYXIS) 30 ML UDC PO SCH ×2 (09:00→17:00)
[2018-02-18] MEDS: CARBIDOPA/LEVA CR 25/100MG 1 TAB.SA PO SCH (09:00)
[2018-02-18 11:00] LABS: BASOPHILS # (AUTO) 0.1 /CMM (0.0-0.2); BASOPHILS % (AUTO) 0.3 % (0.0-2.0); EOSINOPHILS % (AUTO) 0.2 % (0.0-6.0); HEMATOCRIT 23 % (33-45); HEMOGLOBIN 7.4 g/dL (11.5-14.8); LYMPHOCYTES # (AUTO) 0.8 /CMM (0.8-4.8); LYMPHOCYTES % (AUTO) 3.7 % (20.0-44.0); MEAN CORPUSCULAR HGB CONC 33 g/dl (31.0-36.0); MEAN CORPUSCULAR VOLUME 87 fL (82-100); MONOCYTES # (AUTO) 0.8 /CMM (0.1-1.30); MONOCYTES % (AUTO) 3.6 % (2.0-12.0); NEUTROPHILS % (AUTO) 92.2 % (43.0-81.0); PLATELET COUNT (AUTO) 319 /CMM (150-450); RED BLOOD CELL COUNT(AUTO) 2.61 MIL/uL (4.0-5.2); WHITE BLOOD COUNT (AUTO) 21.7 K/uL (4.3-11.0)
[2018-02-18 11:18] LABS: CALCIUM, SERUM 8.9 mg/dL (8.5-10.1); CARBON DIOXIDE 31 mmol/L (21-32); CHLORIDE 97 mmol/L (98-107); CREATININE 1.5 mg/dL (0.6-1.3); GLUCOSE 92 mg/dL (74-106); MAGNESIUM 1.8 mg/dL (1.8-2.4); PHOSPHORUS 3.8 mg/dL (2.5-4.9); POTASSIUM 3.8 mmol/L (3.5-5.1); SODIUM SERUM 134 mmol/L (136-145); UREA NITROGEN, BLOOD 34 mg/dL (7-18)
[2018-02-18 12:19] LABS: BAND % (MANUAL) 2 % (0.0-5.0); LYMPHOCYTES % (MANUAL) 7 % (16-48); MONOCYTES % (MANUAL) 6 % (0-11.0); NEUTROPHILS % (MANUAL) 85 (42-76)
[2018-02-18] MEDS: PIPERACILLIN /TAZOBACTAM 3.375 G in IV D5W 50 ML IV SCH ×3 (15:48→23:54)
[2018-02-18] MEDS: IPRATROPIUM NEB FS 0.5 MG/2.5 ML AMPUL.NEB NEB PRN (15:49)
[2018-02-18] MEDS: VANCOMYCIN 500 MG in IV D5W 100 ML IV SCH (17:43)
--- NOTE | 2018-02-18 19:09 | NUR ---
RN NOTES PATIENT ENDORSED TO NEXT SHIFT IN STABLE CONDITION FOR CONTINUITY OF CARE. WILL CONT TO MONITOR.
--- NOTE | 2018-02-18 19:30 | NUR ---
TRANSFER CLERK NOTES RECEIVED PATIENT IN BED WITH BREATHING WNL, EVEN AND UNLABORED. NO SOB/ NOTED. NO ACUTE DISTRESS NOTED. ON 4L O2 VIA NC, SATURATING WELL. TELE MONITOR ST/ UI=[id number]. JOSE PICC LINE IS PATENT AND INTACT. F/C IS PATENT AND INTACT, DRAINING WITH GRAVITY. KEPT CLEAN, DRY AND COMFORTABLE. PATIENT TURNED AND REPOSITIONED, HEAD IN SEMI FOWLERS . SAFETY PRECAUTIONS IN PLACE. RN WILL CONTINUE TO MONITOR.
[2018-02-18] MEDS: PANTOPRAZOLE 40 MG VIAL IV SCH (19:37)
--- NOTE | 2018-02-18 20:45 | NUR ---
RECIEVED WITH EYES OPEN, WHEN I SPOKE TO HER SHE MOMENTAIRLY LOOKED AT ME. NONVERBAL ARMS CONTRACTED UP AND TO HER CHEST. DTR AT THE BEDSIDE. NURSE PRACT AT THE BEDSIDE AND SPEAKING TO THE DTR, CONVERSATION REGARDING NGT PLACEMENT.
--- NOTE | 2018-02-18 22:00 | NUR ---
NGT PLACED AT 2130 RIGHT NOSTRIL. XRAY CALLED TIMES 2 TO COME TAKE XRAY FOR POSITIVE NGT PALCEMENT. ASP HOB ELEVATED.
--- NOTE | 2018-02-18 22:08 | NUR ---
XRAY HERE PLACEMENT CHECK
--- NOTE | 2018-02-18 22:54 | NUR ---
MIKAEL RAMOS CALLED MESSAGE LEFT REGARDING NGT PLACED AND XRAY TAKEN AND RESULTS INDICATE NGT IN PLACE
[2018-02-19] VITALS (13 sets, daily range): BP systolic 88–109; BP diastolic 50–72
[2018-02-19] MEDS: ACETYLCYSTEINE 10% SOLN 400 MG/4 ML VIAL NEB SCH ×3 (00:01→15:41)
--- NOTE | 2018-02-19 00:32 | NUR ---
0032 MIKAEL RAMOS REPLIED WITH ORDER FOR DIETARY CONSULT FOR TUBE FEEDING, ORDER NOTED.
[2018-02-19] MEDS: NYSTATIN/TRIAMCIN CREAM 15 GM TUBE TP SCH ×2 (00:38→17:00)
[2018-02-19] MEDS: ACETAMINOPHEN 325 MG TABLET PO PRN (00:39)
[2018-02-19] MEDS: COD LIVER OIL/ZINC OXIDE 120 GM TUBE TP SCH ×5 (04:08→21:13)
--- NOTE | 2018-02-19 04:55 | NUR ---
ENDING NOTES: SEEN BY GEOSPATIAL SPECIALIST MIKAEL RAMOS AT THE BEGINNING OF THE SHIFT, SHE SPOKE TO THE DTR. NGT WAS DISCUSSED, PLACED NGT #14 BY MARIANNA AND CHECKED FOR PLACEMENT BY THE SUMMER. REPORT IN AND IN PLACE. DIETARY CONSULT ORDERED. SACRAL WD DRESSING CHANGED ORDERED. PATIENT IS NONVERBAL. SCHMITT OUTPUT THIS 12 HOURS 550 ML
--- NOTE | 2018-02-19 05:19 | NUR ---
ENDING NOTES: EYES OPEN NONVERBAL DTR WAS AT THE BEDSIDE [id number] LAST NIGHT. dTR HAS MANY QUESTIONS AND CONCERNS. Alanis Obrien ALIGNMENT SPECIALIST WAS HERE AND SPENT TIMETO HER. NGT WAS ORDERED AND INSERTED AND CHECKED FOR PLCMNT AND IN PLACE..DIETARY CONSULT ORDER PLAQCED.
[2018-02-19] MEDS: PIPERACILLIN /TAZOBACTAM 3.375 G in IV D5W 50 ML IV SCH ×3 (06:01→20:53)
[2018-02-19 06:38] LABS: BASOPHILS % (AUTO) 0.1 % (0.0-2.0); EOSINOPHILS % (AUTO) 0.2 % (0.0-6.0); LYMPHOCYTES # (AUTO) 0.7 /CMM (0.8-4.8); LYMPHOCYTES % (AUTO) 3.6 % (20.0-44.0); MEAN CORPUSCULAR HGB CONC 33 g/dl (31.0-36.0); MEAN CORPUSCULAR VOLUME 87 fL (82-100); MONOCYTES # (AUTO) 0.6 /CMM (0.1-1.30); MONOCYTES % (AUTO) 3.2 % (2.0-12.0); NEUTROPHILS # (AUTO) 18.5 /CMM (1.8-8.9); NEUTROPHILS % (AUTO) 92.9 % (43.0-81.0); PLATELET COUNT (AUTO) 309 /CMM (150-450); RED BLOOD CELL COUNT(AUTO) 2.35 MIL/uL (4.0-5.2)
[2018-02-19 07:02] LABS: CALCIUM, SERUM 8.6 mg/dL (8.5-10.1); CARBON DIOXIDE 31 mmol/L (21-32); CHLORIDE 96 mmol/L (98-107); CREATININE 1.5 mg/dL (0.6-1.3); GLUCOSE 84 mg/dL (74-106); MAGNESIUM 2.1 mg/dL (1.8-2.4); PHOSPHORUS 4.6 mg/dL (2.5-4.9); POTASSIUM 3.5 mmol/L (3.5-5.1); SODIUM SERUM 137 mmol/L (136-145); UREA NITROGEN, BLOOD 37 mg/dL (7-18)
[2018-02-19 07:26] LABS: BAND % (MANUAL) 6 % (0.0-5.0); LYMPHOCYTES % (MANUAL) 4 % (16-48); MONOCYTES % (MANUAL) 1 % (0-11.0); NEUTROPHILS % (MANUAL) 89 (42-76)
[2018-02-19] MEDS: IPRATROPIUM NEB FS 0.5 MG/2.5 ML AMPUL.NEB NEB PRN ×2 (07:45→15:41)
[2018-02-19 08:17] LABS: HEMATOCRIT 20 % (33-45); HEMOGLOBIN 6.8 g/dL (11.5-14.8)
[2018-02-19] MEDS: PROSOURCE / PROSTAT (PYXIS) 30 ML UDC PO SCH ×2 (09:19→19:09)
[2018-02-19] MEDS: CARBIDOPA/LEVA CR 25/100MG 1 TAB.SA PO SCH (09:19)
[2018-02-19] MEDS: DAKINS QUARTER STRENGTH (0.125%) 480 ML BOTTLE TOP SCH (09:20)
[2018-02-19 15:50] LABS: APPEARANCE,URINE CLEAR (CLEAR); BILIRUBIN,URINE NEGATIVE (NEGATIVE); BLOOD, URINE TRACE Ery/uL (NEGATIVE); COLOR,URINE YELLOW (YELLOW); KETONES,URINE NEGATIVE (NEGATIVE); LEUKOCYTE ESTERASE ,URINE 1+ (NEGATIVE); NITRITE, URINE NEGATIVE (NEGATIVE); PROTEIN,URINE TRACE mg/dl (NEGATIVE); UGLUCOSE NEGATIVE (NEGATIVE); UROBILINOGEN,URINE 0.2 EU/dL (0.2)
[2018-02-19 16:12] LABS: RBC,URINE NONE SEEN /HPF (0-2)
[2018-02-19 16:12] LABS: CREATININE, URINE 23.4 MG/DL (30.0-125.0)
[2018-02-19 16:13] LABS: BACTERIA,URINE None seen /HPF (None Seen); SQUAMOUS EPITHELIAL CELL,UR Few /HPF (None Seen); YEAST,URINE Many /HPF (None Seen)
--- NOTE | 2018-02-19 19:35 | NUR ---
CINDY RN NOTE PATIENT CURRENTLY RECEIVING A BLOOD TRANSFUSION. CALLED ON-CALL PHARMACIST TO ASK IF ZOSYN IV CAN BE INFUSED AT THE SAME TIME BLOOD TRANSFUSION THROUGH THE DOUBLE LUMEN PICC LINE. PHARMACIST SAID NO, THAT THEY HAVE TO BE INFUSED SEPARATELY OR INSERT ANOTHER LINE. ENDORSED TO ACCOUNT TECHNICIAN NURSE TO HANG 1800 ZOSYN IV.
[2018-02-19] MEDS: PANTOPRAZOLE 40 MG VIAL IV SCH (21:12)
[2018-02-20] VITALS (7 sets, daily range): BP systolic 86–115; BP diastolic 51–71
[2018-02-20] MEDS: ACETYLCYSTEINE 10% SOLN 400 MG/4 ML VIAL NEB SCH ×3 (00:07→16:14)
[2018-02-20] MEDS: IPRATROPIUM NEB FS 0.5 MG/2.5 ML AMPUL.NEB NEB PRN (00:07)
[2018-02-20] MEDS: ALBUTEROL FS 2.5 MG/0.5 ML VIAL.NEB NEB PRN (00:07)
[2018-02-20] MEDS: PIPERACILLIN /TAZOBACTAM 3.375 G in IV D5W 50 ML IV SCH ×5 (01:36→23:11)
[2018-02-20] MEDS: COD LIVER OIL/ZINC OXIDE 120 GM TUBE TP SCH ×7 (04:08→23:12)
[2018-02-20 06:00] LABS: BASOPHILS # (AUTO) 0.1 /CMM (0.0-0.2); BASOPHILS % (AUTO) 0.3 % (0.0-2.0); EOSINOPHILS % (AUTO) 0.1 % (0.0-6.0); HEMATOCRIT 24 % (33-45); LYMPHOCYTES # (AUTO) 0.7 /CMM (0.8-4.8); LYMPHOCYTES % (AUTO) 3.6 % (20.0-44.0); MEAN CORPUSCULAR HGB CONC 33 g/dl (31.0-36.0); MEAN CORPUSCULAR VOLUME 85 fL (82-100); MONOCYTES # (AUTO) 0.6 /CMM (0.1-1.30); MONOCYTES % (AUTO) 3.3 % (2.0-12.0); NEUTROPHILS % (AUTO) 92.7 % (43.0-81.0); PLATELET COUNT (AUTO) 317 /CMM (150-450); RED BLOOD CELL COUNT(AUTO) 2.86 MIL/uL (4.0-5.2); WHITE BLOOD COUNT (AUTO) 18.3 K/uL (4.3-11.0)
[2018-02-20 06:20] LABS: CALCIUM, SERUM 8.3 mg/dL (8.5-10.1); CARBON DIOXIDE 32 mmol/L (21-32); CHLORIDE 101 mmol/L (98-107); CREATININE 1.7 mg/dL (0.6-1.3); GLUCOSE 166 mg/dL (74-106); MAGNESIUM 1.9 mg/dL (1.8-2.4); PHOSPHORUS 3.6 mg/dL (2.5-4.9); POTASSIUM 3.3 mmol/L (3.5-5.1); SODIUM SERUM 141 mmol/L (136-145); UREA NITROGEN, BLOOD 37 mg/dL (7-18)
--- NOTE | 2018-02-20 06:26 | NUR ---
PT AWAKE, NON VERBAL, NO EYE CONTACT. PT TOLERATED TRANSFUSION LAST NIGHT VSS,AFEBRILE ,SUCTIONED BY RT AFTER HHN, SACRAL DECUB DRESSING CHANGES PACKED WITH MOISTENED GAUZE OF DAKINS, SMALL BM, REPOSITIONED FOR COMFORT, TOLERATING FEEDING WITHOUT ANY RESIDUAL AND NOW AT GOAL OF 60 CC/HR, NASAL CARE DONE, CONTINUE WITH OXYGEN TITRATED TO 2 LITERS SATURATING @ 94-98%. PICC LINE RED PORT UNABLE TO FLUSH AND DRAW BLOOD, DOUBLE LUMEN PICC DRAWN ON 2ND PORT. WILL CONTINUE WITH ANTIBIOTICS, VSS,AFEBRILE.
--- NOTE | 2018-02-20 08:00 | NUR ---
MS RN OPENING NOTE RECEIVED PATIENT IN BED LOCKED IN LOWEST POSITION WITH SIDE RAILS UP FOR SAFETY. NON-VERBAL, OPENS EYES. HAS NG TUBE WITH FEEDING RUNNING AT THIS TIME AND TOLERATING WELL NO RESIDUAL NOTED. RIGHT UPPER ARM PICC LINE INTACT AND PATENT NO REDNESS OR SWELLING NOTED, DRESSING INTACT. WOUND TREATMENT TO BE DONE THROUGHOUT SHIFT. ON 3L/MIN OF OXYGEN VIA NASAL CANNULA TOLERATING WELL AT 96%. NO FACIAL GRIMACING NOTED FOR PAIN. NO SOB OR DISTRESS NOTED. SCHMITT CATHETER IN PLACE AND DRAINING WELL AT THIS TIME WITH CLEAR YELLOW URINE. ON ISOLATION PRECAUTIONS AT THIS TIME. WILL CONTINUE TO MONITOR THROUGHOUT SHIFT
[2018-02-20] MEDS: PROSOURCE / PROSTAT (PYXIS) 30 ML UDC PO SCH ×2 (08:34→17:53)
[2018-02-20] MEDS: CARBIDOPA/LEVA CR 25/100MG 1 TAB.SA PO SCH (08:34)
[2018-02-20] MEDS: DAKINS QUARTER STRENGTH (0.125%) 480 ML BOTTLE TOP SCH (08:37)
[2018-02-20] MEDS ORDERED: POTASSIUM CHLORIDE 20 MEQ TAB.PRT.SR PO ONE (10:30)
[2018-02-20] MEDS: JEVITY 1.2 CAL 1,000 ML BOTTLE GT PRN (10:59)
--- NOTE | 2018-02-20 10:59 | NUR ---
MS RN NOTE CAREGIVER REQUESTING TO CHECK BLOOD [id number]. POTASSIUM REPLACEMENT-20 MEQ GIVEN VIA NGT. TUBE FEEDING CHANGED AND RUNNING AT 60 ML/HR AND TOLERATING WELL
[2018-02-20] MEDS: NYSTATIN/TRIAMCIN CREAM 15 GM TUBE TP SCH ×3 (11:06→23:12)
--- NOTE | 2018-02-20 11:59 | NUR ---
MS RN NOTE WOUND DRESSING CHANGED PRN
--- NOTE | 2018-02-20 12:35 | NUR ---
MS RN NOTE PATIENT SEEN BY DR. WILCOX AT BEDSIDE
[2018-02-20] MEDS: VANCOMYCIN 500 MG in IV D5W 100 ML IV SCH (18:10)
--- NOTE | 2018-02-20 18:50 | NUR ---
MS RN CLOSING NOTE PATIENT RESTING COMFORTABLY AT THIS TIME NO SOB OR DISTRESS NOTED ON 3L/MIN VIA NASAL CANNULA TOLERATING WELL AT 95%. NO FACIAL GRIMACING NOTED. CALL LIGHT WITHIN REACH AT ALL TIMES. SAFETY MEASURES IMPLEMENTED. ALL NEEDS MET. WOUND TREATMENT DONE THROUGHOUT SHIFT. NG TUBE PATENT AND FEEDING RUNNING AT 60 ML/HR. PICC LINE INTACT, NOTIFIED CHARGE NURSE THAT ONE PORT FOR BLOOD IS NOT FLUSHING- TO BE SEEN BY PICC LINE NURSE. SCHMITT CATHETER-400 OUTPUT. POTASSIUM REPLACEMENT GIVEN. NPO AT MIDNIGHT FOR PEG/EGD 02/21/18 CONSENTS IN CHART. WILL ENDORSE TO WELLNESS SPECIALIST NURSE FOR FAUZIA
[2018-02-20] MEDS: PANTOPRAZOLE 40 MG VIAL IV SCH (20:23)
--- NOTE | 2018-02-20 21:00 | NUR ---
PT AWAKE , APHASIC, AND NO EYE CONTACT DURING CONSERVATION. TOLERATING FEEDING @ 60 CC/HR. NO RESIDUAL, FOR PEG PLACED IN AM, WILL HOLD FEEDING AFTER MIDNIGHT. PICC LINE WITH TKO @ 10CC/HR TO KVO, RED PORT STILL CLOG AWAITING FOR PICC NURSE TO CHECK. VSS,AFEBRILE ,TACHY @ 122 WILL CONTINUE TO MONITOR.
--- NOTE | 2018-02-20 23:00 | NUR ---
MS/RN NOTES RECEIVED REPORT FROM TENISHA FOR FAUIZA, PT IN BED, ALERT BUT NONVERBAL.ON 3L O2 VIA NC, SPO2 WNL. NGT INTACT AND IN PLACED. WITH ONGOING NGT FEEDING OF JEVITY 1.2 AT 60 ML/HR, TOLERATING WELL. PT IS FOR NPO POST MIDNIGHT FOR EGD/PEG PLACEMENT IN AM. HOB ELEVATED. F/C INTACT AND IN PLACED. JOSE DOUBLE LUMEN PICC INTACT AND PATENT. RED PORT NOT FLUSHING. SAFETY MEASURES AND ASPIRATION PRECAUTION IN PLACED. CALL LIGHT WITHIN EASY REACH. WILL CONT TO MONITOR
[2018-02-21] VITALS (20 sets, daily range): BP systolic 62–126; BP diastolic 56–75
[2018-02-21] MEDS: ACETYLCYSTEINE 10% SOLN 400 MG/4 ML VIAL NEB SCH ×4 (00:31→23:31)
[2018-02-21] MEDS: COD LIVER OIL/ZINC OXIDE 120 GM TUBE TP SCH ×5 (03:14→20:00)
[2018-02-21] MEDS: PIPERACILLIN /TAZOBACTAM 3.375 G in IV D5W 50 ML IV SCH (05:34)
[2018-02-21 06:35] LABS: CALCIUM, SERUM 8.4 mg/dL (8.5-10.1); CARBON DIOXIDE 33 mmol/L (21-32); CHLORIDE 102 mmol/L (98-107); CREATININE 1.5 mg/dL (0.6-1.3); GLUCOSE 124 mg/dL (74-106); PHOSPHORUS 3.8 mg/dL (2.5-4.9); SODIUM SERUM 143 mmol/L (136-145); UREA NITROGEN, BLOOD 39 mg/dL (7-18)
[2018-02-21 06:41] LABS: BASOPHILS % (AUTO) 0.2 % (0.0-2.0); EOSINOPHILS % (AUTO) 0.4 % (0.0-6.0); HEMATOCRIT 25 % (33-45); LYMPHOCYTES # (AUTO) 1.3 /CMM (0.8-4.8); LYMPHOCYTES % (AUTO) 5.8 % (20.0-44.0); MEAN CORPUSCULAR HGB CONC 33 g/dl (31.0-36.0); MEAN CORPUSCULAR VOLUME 86 fL (82-100); MONOCYTES # (AUTO) 1.4 /CMM (0.1-1.30); MONOCYTES % (AUTO) 6.5 % (2.0-12.0); NEUTROPHILS # (AUTO) 18.8 /CMM (1.8-8.9); NEUTROPHILS % (AUTO) 87.1 % (43.0-81.0); PLATELET COUNT (AUTO) 296 /CMM (150-450); RED BLOOD CELL COUNT(AUTO) 2.88 MIL/uL (4.0-5.2); WHITE BLOOD COUNT (AUTO) 21.6 K/uL (4.3-11.0)
--- NOTE | 2018-02-21 06:59 | NUR ---
RN NOTES PT IN STABLE CONDITION. NO ACUTE CHANGES THROUGHOUT SHIFT. SAFETY MEASURES OBSERVED AT ALL TIMES. ALL NEEDS ANTICIPATED. ENDORSED TO AM SHIFT RN FOR FAUZIA
--- NOTE | 2018-02-21 07:10 | NUR ---
MS RN OPENING NOTES RECEIVED PT LYING ON BED WITH FC AND NG TUBE IN PLACE.ON 3L O2 VIA NC CONTINUOUSLY.NO SOB AND ACUTE DISTRESS NOTED.ALERT/ORIENTED X1,NON VERBAL AND CAN OPEN EYES.RIGHT UA PICC LINE 2 LUMEN IS PRESENT,RED PORT NOT FLUSHING.SITE IS CLEAN,DRY AND INTACT.FEEDING IS ON HOLD AND PLANNING TO DO PEG TUBE PLACEMENT TODAY.SAFETY IS MAINTAINED TA ALL TIMES.BED IS IN LOW POSITION AND LOCKED.CALL LIGHT IS WITHIN REACH.WILL CONTINUE TO MONITOR THE PT CLOSELY.
--- NOTE | 2018-02-21 09:30 | NUR ---
MS RN NOTES SEEN THE PT AND SAID PT LOOKS MORE SEDATIVE AND STAT ABG,AND CANCEL THE PEG TUBE PLACEMENT PROCEDURE.FAMILY MADE AWARE.
--- NOTE | 2018-02-21 09:45 | NUR ---
MS RN NOTES ABG HAS DONE AND NOTED WITH CO2 59.3, ORDERED TO TRANSFER TO ICU SHE IS NOT STABLE.CHARGE NURSE MADE AWARE.FAMILY IS AT BEDSIDE.PT IS CLEAN AND DRY
[2018-02-21 09:54] LABS: ABG OXYGEN SATURATION 96.3 % (92.0-98.5); ABG PCO2 59.3 mmHg (35.0-45.0); ABG PH 7.401 (7.350-7.450); ABG PO2 92.7 mmHg (75.0-100.0); AaDO2 95.2 mmHg; COHb 0.8 % (0.5-1.5); MetHb 0.5 % (0.0-1.5); SITE, ABG Right Radial; VENT MODE, BG NASAL CANNULA
[2018-02-21] MEDS: PROSOURCE / PROSTAT (PYXIS) 30 ML UDC PO SCH ×2 (10:14→16:56)
[2018-02-21] MEDS: CARBIDOPA/LEVA CR 25/100MG 1 TAB.SA PO SCH (10:15)
--- NOTE | 2018-02-21 11:00 | NUR ---
MS RN NOTES PT IS TRANSFERRED TO ICU ROOM 254 AND GAVE THE REPORT TO NERI GARCIA.FAMILY IS AT BEDSIDE.
--- NOTE | 2018-02-21 11:00 | NUR ---
RT NOTE: LATE ENTRY- ABG DONE AND REPORTED TO KAY KELSEY WITH ORDERS TO PLACE ON BIPAP. PATIENT WAS SUCTIONED TO OBTAIN MODERATE AMOUNT OF BLOODY/ THICK SIMON SECRETIONS. PATIENT TRANSFERRED TO ICU.
--- NOTE | 2018-02-21 11:07 | NUR ---
pt. placed into bipap due to increased wob with parameters below as order: ipap15 epap 5 rate 12 fio2 30% Mepilex is placed between the skin in mask for skin integrity. breath sounds bilateral fine rales/ crackles. Addendum: 02/21/18 at 1111 by NARGIS STARK RT Amended: Links added.
[2018-02-21] MEDS: DAKINS QUARTER STRENGTH (0.125%) 480 ML BOTTLE TOP SCH ×2 (11:12)
--- NOTE | 2018-02-21 11:31 | NUR ---
ICU TRANSFER NOTES: PT TRANSFERRED FROM NAMAN TO BE PLACED ON BIPAP. BIPAP SETTINGS ARE FOLLOWED (IPAP 15, EPAP 5, RATE 12, FIO2 30%). PT TOLERATING WELL. VSS. PT SATING WELL AT 98%. PT NOTED TO BE LETHARGIC, NON VERBAL, HOWEVER RESPONSIVE TO PAINFUL STIMULI AND OPENS HER EYES SPONTANEOUSLY. ICU MONITORING INITIATED. PT CURRENTLY SR ON THE TELE MONITOR. SCHMITT CATHETER NOTED TO BE DRAINING CLEAR YELLOW URINE. RIGHT UPPER ARM PICC NOTED TO BE PATENT AND IN INTACT. NG TUBE NOTED. PLACEMENT VERIFIED VIA AUSCULTATION. PT SCHEDULED FOR PEG PLACEMENT HOWEVER PROCEDURE HELD AT THIS TIME UNTIL PT'S CONDITION STABILIZES. BED IN LOW LOCKED POSITION, HOB ELEVATED, SPEECH CORRECTION CONSULTANT AILS UP X3, CALL LIGHT WITHIN REACH, BED ALARM ON. PT'S FAMILY AT BEDSIDE. WILL CONTINUE TO MONITOR
[2018-02-21] MEDS ORDERED: PIPERACILLIN /TAZOBACTAM 2.25 G in IV NS 0.9% 50 ML IV SCH (12:00)
[2018-02-21] MEDS: NYSTATIN/TRIAMCIN CREAM 15 GM TUBE TP SCH (12:47)
[2018-02-21] MEDS ORDERED: MEROPENEM 1 G in IV NS 0.9% 100 ML IV SCH (13:00)
[2018-02-21 14:00] LABS: APPEARANCE,URINE SL CLOUDY (CLEAR); BILIRUBIN,URINE NEGATIVE (NEGATIVE); BLOOD, URINE 1+ Ery/uL (NEGATIVE); COLOR,URINE YELLOW (YELLOW); KETONES,URINE NEGATIVE (NEGATIVE); LEUKOCYTE ESTERASE ,URINE 2+ (NEGATIVE); NITRITE, URINE NEGATIVE (NEGATIVE); PROTEIN,URINE TRACE mg/dl (NEGATIVE); UGLUCOSE NEGATIVE (NEGATIVE); UROBILINOGEN,URINE 0.2 EU/dL (0.2)
[2018-02-21 14:01] LABS: ABG BASE EXCESS 8.1 mmol/L; ABG OXYGEN SATURATION 94.3 % (92.0-98.5); ABG PH 7.462 (7.350-7.450); ABG PO2 70.2 mmHg (75.0-100.0); AaDO2 88.5 mmHg; COHb 0.4 % (0.5-1.5); MetHb 0.5 % (0.0-1.5); O2Hb 93.5 % (94.0-97.0); SITE, ABG Right Radial
[2018-02-21] MEDS: MEROPENEM 500 MG in IV NS 0.9% 50 ML IV SCH (14:08)
[2018-02-21 14:37] LABS: BACTERIA,URINE Few /HPF (None Seen); SQUAMOUS EPITHELIAL CELL,UR Few /HPF (None Seen); YEAST,URINE Few /HPF (None Seen)
--- NOTE | 2018-02-21 18:34 | NUR ---
PICTURE HANGER CLOSING NOTES PT REMAINS IN STABLE CONDITION. TOLERATING BIPAP SETTING WELL. PCO2 CONTINUES TRENDING DOWN. DR VILLANUEVA AWARE OF CURRENT ABG RESULTS. PT REPOSITIONED AND TURNED PER HOSPITAL PROTOCOL. PRN CARE RENDERED. WOUND CARE RENDERED ORDERED. INVASIVE LINES REMAIN PATENT AND INTACT. SCHMITT REMAINS PATENT AND INTACT. SAFETY MEASURES IN PLACE. PT'S DAUGHTER AT BEDSIDE. WILL ENDORSE TO NIGHTSHIFT RN FOR FAUZIA.
--- NOTE | 2018-02-21 20:01 | NUR ---
RACING SECRETARY. INITIAL ASSESSMENT RECEIVED THE PT REST ON THE BED. OPEN EYES, DOES NOT FOLLOW COMMANDS. BIPAP ON. SETTINGS 15/5, RATE IS 12FIO2 30%. SAT 98%. NO ACUTE DISTRESS NOTED. PRESSURISED CONTAINER FILLER SHOWING S TACH IV RT UPPER ARM PICC LINE SALINE LOCK. HOB ELEVATED, RT NARE NGT INTACT, CLAMPED. PT IS NPO. FC PATENT. HOB ELEVATED. PT IS CONTRACTED, WILL CONTINUE TO MONITOR VITALS.
[2018-02-21] MEDS: PANTOPRAZOLE 40 MG VIAL IV SCH (21:29)
[2018-02-21] MEDS: ALBUTEROL FS 2.5 MG/0.5 ML VIAL.NEB NEB PRN (23:31)
[2018-02-21] MEDS: IPRATROPIUM NEB FS 0.5 MG/2.5 ML AMPUL.NEB NEB PRN (23:31)
[2018-02-22] VITALS (28 sets, daily range): BP systolic 93–140; BP diastolic 58–86
[2018-02-22] MEDS: COD LIVER OIL/ZINC OXIDE 120 GM TUBE TP SCH ×6 (00:58→20:05)
[2018-02-22] MEDS: ACETAMINOPHEN 325 MG TABLET PO PRN (00:58)
[2018-02-22] MEDS: NYSTATIN/TRIAMCIN CREAM 15 GM TUBE TP SCH ×2 (01:29→14:43)
[2018-02-22] MEDS: MEROPENEM 500 MG in IV NS 0.9% 50 ML IV SCH ×2 (02:53→13:03)
[2018-02-22 04:54] LABS: BASOPHILS # (AUTO) 0.1 /CMM (0.0-0.2); BASOPHILS % (AUTO) 0.3 % (0.0-2.0); EOSINOPHILS % (AUTO) 0.2 % (0.0-6.0); HEMATOCRIT 27 % (33-45); HEMOGLOBIN 8.8 g/dL (11.5-14.8); LYMPHOCYTES % (AUTO) 5.2 % (20.0-44.0); MEAN CORPUSCULAR HGB CONC 32 g/dl (31.0-36.0); MEAN CORPUSCULAR VOLUME 86 fL (82-100); MONOCYTES # (AUTO) 0.7 /CMM (0.1-1.30); MONOCYTES % (AUTO) 3.4 % (2.0-12.0); NEUTROPHILS # (AUTO) 17.5 /CMM (1.8-8.9); NEUTROPHILS % (AUTO) 90.9 % (43.0-81.0); PLATELET COUNT (AUTO) 352 /CMM (150-450); RED BLOOD CELL COUNT(AUTO) 3.17 MIL/uL (4.0-5.2); WHITE BLOOD COUNT (AUTO) 19.2 K/uL (4.3-11.0)
--- NOTE | 2018-02-22 05:00 | NUR ---
ANIMAL NUTRITION CONSULTANT. AM CARE, ORAL CARE, BED BATH GIVEN. LINEN CHANGED. REMAINING SAME BIPAP SETTING TOLERATED WELL. ST 98%.NO ACUTE DISTRESS NOTED. AIRLINE RESERVATIONIST SHOWING S TACH. IV RT UPPER ARM PICC LINE. TKO RUNNING, FC PATENT URINE DRAINING. HOB ELEVATED. PT IS NPO. RT NARE NGT INTACT. CLAMPED. TURN AND REPOSITION Q2H. WILL CONTINUE TO MONITOR VITALS.
[2018-02-22 05:10] LABS: ALANINE AMINOTRANSFERASE 12 U/L (12-78); ALBUMIN 1.7 g/dL (3.4-5.0); ALKALINE PHOSPHATASE 136 U/L (46-116); ASPARTATE AMINOTRANSFERASE 20 U/L (15-37); BILIRUBIN,TOTAL 0.4 mg/dL (0.2-1.0); CALCIUM, SERUM 8.7 mg/dL (8.5-10.1); CARBON DIOXIDE 33 mmol/L (21-32); CHLORIDE 103 mmol/L (98-107); CREATININE 1.7 mg/dL (0.6-1.3); GLUCOSE 114 mg/dL (74-106); MAGNESIUM 2.3 mg/dL (1.8-2.4); PHOSPHORUS 4.4 mg/dL (2.5-4.9); POTASSIUM 3.5 mmol/L (3.5-5.1); SODIUM SERUM 141 mmol/L (136-145); TOTAL PROTEIN, SERUM 5.4 g/dL (6.4-8.2); UREA NITROGEN, BLOOD 45 mg/dL (7-18)
--- NOTE | 2018-02-22 07:30 | NUR ---
PATIENT REMOVED FROM BIPAP AND PLACED ON 4L N/C DAMIÁN WELL
[2018-02-22] MEDS: ACETYLCYSTEINE 10% SOLN 400 MG/4 ML VIAL NEB SCH ×3 (07:33→23:06)
[2018-02-22] MEDS: DAKINS QUARTER STRENGTH (0.125%) 480 ML BOTTLE TOP SCH ×2 (09:00→09:02)
[2018-02-22] MEDS: IV D5/ 0.9% NACL 1,000 ML IV PRN (09:01)
[2018-02-22] MEDS: CARBIDOPA/LEVA CR 25/100MG 1 TAB.SA PO SCH (09:01)
[2018-02-22 09:11] LABS: ABG BASE EXCESS 7.7 mmol/L; ABG OXYGEN SATURATION 90.3 % (92.0-98.5); ABG PH 7.464 (7.350-7.450); ABG PO2 58.4 mmHg (75.0-100.0); AaDO2 152.2 mmHg; COHb 0.4 % (0.5-1.5); MetHb 0.9 % (0.0-1.5); O2Hb 89.1 % (94.0-97.0); SITE, ABG Right Radial; VENT MODE, BG nasal cannula
[2018-02-22] MEDS: PROSOURCE / PROSTAT (PYXIS) 30 ML UDC PO SCH ×2 (09:21→16:55)
--- NOTE | 2018-02-22 12:56 | NUR ---
BEDSIDE REPORT RECEIVED FROM ALVAREZ HE, NONVERBAL, DOES NOT FOLLOW INSTRUCTIONS, ON BIPAP. Addendum: 02/22/18 at 1258 by VIN BERMUDEZ RN LATE ENTRY AT [id number]
[2018-02-22] MEDS: VANCOMYCIN 500 MG in IV D5W 100 ML IV SCH (17:13)
--- NOTE | 2018-02-22 18:39 | NUR ---
DAUGHTER HALLIE AT BEDSIDE; GIVEN UPDATES ON PTS STATUS; AWARE OF POSSIBLE PEG PLACEMENT TOMORROW, ENCOURAGED TO VERBALIZE CONCERNS
--- NOTE | 2018-02-22 19:21 | NUR ---
REPORT GIVEN TO SANDRA HE
--- NOTE | 2018-02-22 19:30 | NUR ---
BOARD MACHINE SET UP OPERATOR: RECEIVED PT ALERT TO SELF. ON 4L 02 VIA NC WT NO ACUTE DISTRESS. NO EVIDENCE OF DISCOMFORT. ST ON NUTRITION INTERNSHIP WT HR LESS THAN 110. AFEBRILE. RT. NGT IN PLACE AND CLAMPED. JOSE PICC INFUSING D5NS AT 50ML/HR WT NO S/S OF COMPLICATIONS. F/C PATENT AND INTACT DRAINING YELLOW URINE TO GRAVITY. HOB ON HIGH DAVE'S. SAFETY PRECAUTION NOTED. WILL CONTINUE TO MONITOR.
[2018-02-22] MEDS: PANTOPRAZOLE 40 MG VIAL IV SCH (20:04)
[2018-02-22] MEDS: IPRATROPIUM NEB FS 0.5 MG/2.5 ML AMPUL.NEB NEB PRN (23:06)
[2018-02-22] MEDS: ALBUTEROL FS 2.5 MG/0.5 ML VIAL.NEB NEB PRN (23:06)
[2018-02-23] VITALS (25 sets, daily range): BP systolic 104–149; BP diastolic 54–99
[2018-02-23] MEDS: COD LIVER OIL/ZINC OXIDE 120 GM TUBE TP SCH ×6 (00:36→20:03)
[2018-02-23] MEDS: NYSTATIN/TRIAMCIN CREAM 15 GM TUBE TP SCH ×2 (00:37→11:02)
[2018-02-23] MEDS: MEROPENEM 500 MG in IV NS 0.9% 50 ML IV SCH ×2 (02:20→14:13)
[2018-02-23 05:00] LABS: BASOPHILS % (AUTO) 0.4 % (0.0-2.0); EOSINOPHILS % (AUTO) 0.7 % (0.0-6.0); HEMATOCRIT 24 % (33-45); HEMOGLOBIN 7.7 g/dL (11.5-14.8); LYMPHOCYTES # (AUTO) 0.9 /CMM (0.8-4.8); LYMPHOCYTES % (AUTO) 6.2 % (20.0-44.0); MEAN CORPUSCULAR HGB CONC 32 g/dl (31.0-36.0); MEAN CORPUSCULAR VOLUME 87 fL (82-100); MONOCYTES # (AUTO) 0.7 /CMM (0.1-1.30); MONOCYTES % (AUTO) 5.4 % (2.0-12.0); NEUTROPHILS # (AUTO) 12.2 /CMM (1.8-8.9); NEUTROPHILS % (AUTO) 87.3 % (43.0-81.0); PLATELET COUNT (AUTO) 329 /CMM (150-450); RED BLOOD CELL COUNT(AUTO) 2.78 MIL/uL (4.0-5.2); WHITE BLOOD COUNT (AUTO) 13.9 K/uL (4.3-11.0)
[2018-02-23 05:09] LABS: CALCIUM, SERUM 8.6 mg/dL (8.5-10.1); CARBON DIOXIDE 34 mmol/L (21-32); CHLORIDE 107 mmol/L (98-107); CREATININE 1.5 mg/dL (0.6-1.3); GLUCOSE 141 mg/dL (74-106); SODIUM SERUM 146 mmol/L (136-145); UREA NITROGEN, BLOOD 43 mg/dL (7-18)
[2018-02-23 05:17] LABS: POTASSIUM 2.8 mmol/L (3.5-5.1)
--- NOTE | 2018-02-23 06:35 | NUR ---
ICU RECEIVED K=2.8. RELAYED TO INGA JONES WT ORDER TO GIVE 60M EQ KLOR CON VIA NGT Q1H X3. NOTED AND CARRIED OUT. NO SIGNIFICANT FAUZIA DURING THE SHIFT. REMAINS ON 4L 02 VIA NC WT NO ACUTE DISTRESS. WT FREQUENT SUCTIONING PERFORMED AND NOTED SIMON TO PINK TINGED THICK SECRETIONS AND TOLERATED FAIRLY. VS WITHIN PT's BASELINE. WILL ENDORSE TO DAY SHIFT FOR CONTINUITY OF CARE. PLACED ON HIGH DAVE'S. SAFETY PRECAUTION NOTED AT ALL TIMES.
[2018-02-23] MEDS: ALBUTEROL FS 2.5 MG/0.5 ML VIAL.NEB NEB PRN ×3 (07:29→23:22)
[2018-02-23] MEDS: ACETYLCYSTEINE 10% SOLN 400 MG/4 ML VIAL NEB SCH ×3 (07:29→23:22)
[2018-02-23] MEDS: POTASSIUM CHLORIDE 20 MEQ POWDER PACKET GT SCH ×3 (07:54→09:52)
[2018-02-23] MEDS: CARBIDOPA/LEVA CR 25/100MG 1 TAB.SA PO SCH (08:15)
[2018-02-23] MEDS: DAKINS QUARTER STRENGTH (0.125%) 480 ML BOTTLE TOP SCH ×2 (08:15→08:16)
[2018-02-23] MEDS: IV D5/ 0.9% NACL 1,000 ML IV PRN (08:24)
--- NOTE | 2018-02-23 08:40 | NUR ---
PICC DRESSING CHANGED BY STERILE PROCEDURE
--- NOTE | 2018-02-23 08:49 | NUR ---
DR VILLANUEVA AT BEDSIDE. RECEIVED VERBAL ORDER FOR ABG TO CLEAR PT FOR G-TUBE PLACEMENT. UPDATED PRIVATE CAREGIVER, AT BEDSIDE, TO PLAN OF CARE.
--- NOTE | 2018-02-23 08:56 | NUR ---
DR GARNER AT BEDSIDE Addendum: 02/23/18 at 1006 by HAYDEN DELA CRUZ RN PLEASE DISREGARD
[2018-02-23 09:28] LABS: ABG BASE EXCESS 8.5 mmol/L; ABG OXYGEN SATURATION 95.4 % (92.0-98.5); ABG PCO2 48.2 mmHg (35.0-45.0); ABG PH 7.458 (7.350-7.450); ABG PO2 83.5 mmHg (75.0-100.0); AaDO2 117.3 mmHg; COHb 0.3 % (0.5-1.5); MetHb 1.3 % (0.0-1.5); O2Hb 93.9 % (94.0-97.0); SITE, ABG Left Radial; VENT MODE, BG Nasal Cannula
[2018-02-23] MEDS: PROSOURCE / PROSTAT (PYXIS) 30 ML UDC PO SCH ×2 (09:57→16:37)
--- NOTE | 2018-02-23 10:00 | NUR ---
PT TURNED AND REPOSITIONED. NOTED TO HAVE DIARRHEA, BROWN LIQUID. SACRAL DRESSING SOILED; WOUND CARE RENDERED AND NEW DRESSING APPLIED. LINEN CHANGE DONE.
--- NOTE | 2018-02-23 10:06 | NUR ---
DR REDDY AT BEDSIDE
--- NOTE | 2018-02-23 13:26 | NUR ---
PT HAD ONE EPISODE OF DESATURATION TO 83%. PT'S NASAL CANNULA WAS NOTED TO BE DISLODGED FROM HER NARES. CANNULA REPLACED AND SECURED IN PLACE, ORAL SUCTIONING PERFORMED. O2 SAT INCREASED TO 96% IMMEDIATELY.
--- NOTE | 2018-02-23 16:00 | NUR ---
LINENS CHANGED AND FULL BEDBATH COMPLETED BY RN WITH ASSIST FROM PRIVATE CAREGIVER MARIANN. ALL NEEDS ATTENDED TO. PT KEPT NPO EXCEPT MEDS.
--- NOTE | 2018-02-23 18:19 | NUR ---
RESTING QUIETLY, NAD NOTED. VSS. ALL NEEDS ATTENDED TO
--- NOTE | 2018-02-23 19:45 | NUR ---
ICU/RAW JUICE WEIGHER RECEIVED REPORT FROM DAY NURSE. SEE FLOWSHEET FOR ASSESSMENT AND SKIN ISSUES WHICH ARE ADDRESSED HERE ALONG WITH THE INTERVENTIONS AND EXPECTED OUTCOMES. PT WAS TURNED AND REPOSITIONED FOR COMFORT AND CARE, WILL CONTINUE TO MONITOR THIS PT.
[2018-02-23] MEDS: PANTOPRAZOLE 40 MG VIAL IV SCH (20:00)
--- NOTE | 2018-02-23 21:45 | NUR ---
ICU/BICYCLE RENTAL CLERK SURGICAL CHECK LIST WAS STARTED AND COMPLETED, DUE TO THE FACT PT IS TO HAVE PEG PLACEMENT TOMORROW. ALL CONSENT ARE SIGNED.
--- NOTE | 2018-02-23 22:30 | NUR ---
ICU/RAILWAY TRACK WORKER PT WAS DEEP SUCTIONED ORALLY, PT WAS HAVING A PRODUCTIVE COUGH WITH NO RESULTS. SUCTIONED PT WHILE SHE COUGH BROUGHT UP GREEN, THICK MUCUS. PT TOLERATED THIS WELL, SATURATION IS 99% ON 4 LITERS.
[2018-02-23] MEDS: IPRATROPIUM NEB FS 0.5 MG/2.5 ML AMPUL.NEB NEB PRN (23:22)
[2018-02-24] VITALS (64 sets, daily range): BP systolic 91–156; BP diastolic 48–92
--- NOTE | 2018-02-24 00:10 | NUR ---
ICU/AWNINGS MECHANIC PT WAS PLACED NPO, DUE TO SURGERY LATER TODAY.
[2018-02-24] MEDS: NYSTATIN/TRIAMCIN CREAM 15 GM TUBE TP SCH ×3 (00:18→23:42)
[2018-02-24] MEDS: COD LIVER OIL/ZINC OXIDE 120 GM TUBE TP SCH ×7 (00:18→23:42)
[2018-02-24] MEDS: MEROPENEM 500 MG in IV NS 0.9% 50 ML IV SCH ×2 (01:32→13:10)
--- NOTE | 2018-02-24 04:30 | NUR ---
ICU/MEMBERSHIP COORDINATOR EKG WAS DONE FOR PRE-OP ON THIS PT. WHO WILL BE GOING TO GET PEG. PLACEMENT.
[2018-02-24 04:46] LABS: BASOPHILS # (AUTO) 0.1 /CMM (0.0-0.2); BASOPHILS % (AUTO) 0.5 % (0.0-2.0); CALCIUM, SERUM 8.8 mg/dL (8.5-10.1); CARBON DIOXIDE 33 mmol/L (21-32); CHLORIDE 112 mmol/L (98-107); CREATININE 1.4 mg/dL (0.6-1.3); EOSINOPHILS % (AUTO) 1.1 % (0.0-6.0); GLUCOSE 127 mg/dL (74-106); HEMATOCRIT 24 % (33-45); HEMOGLOBIN 7.8 g/dL (11.5-14.8); LYMPHOCYTES # (AUTO) 0.9 /CMM (0.8-4.8); LYMPHOCYTES % (AUTO) 9.1 % (20.0-44.0); MEAN CORPUSCULAR HGB CONC 33 g/dl (31.0-36.0); MEAN CORPUSCULAR VOLUME 87 fL (82-100); MONOCYTES # (AUTO) 0.7 /CMM (0.1-1.30); MONOCYTES % (AUTO) 6.9 % (2.0-12.0); NEUTROPHILS # (AUTO) 8.5 /CMM (1.8-8.9); NEUTROPHILS % (AUTO) 82.4 % (43.0-81.0); PLATELET COUNT (AUTO) 376 /CMM (150-450); POTASSIUM 3.6 mmol/L (3.5-5.1); RED BLOOD CELL COUNT(AUTO) 2.79 MIL/uL (4.0-5.2); SODIUM SERUM 152 mmol/L (136-145); UREA NITROGEN, BLOOD 41 mg/dL (7-18); WHITE BLOOD COUNT (AUTO) 10.3 K/uL (4.3-11.0)
--- NOTE | 2018-02-24 05:30 | NUR ---
ICU/MERCHANDISE CARRIER PT WAS DEEP SUCTIONED ORALLY, PT WAS HAVING A PRODUCTIVE COUGH WITH NO RESULTS. SUCTIONED PT WHILE SHE COUGH BROUGHT UP GREEN, THICK MUCUS. PT TOLERATED THIS WELL, SATURATION IS 99-100% ON 4 LITERS.
[2018-02-24] MEDS: IV D5/ 0.9% NACL 1,000 ML IV PRN (05:58)
[2018-02-24] MEDS: ACETYLCYSTEINE 10% SOLN 400 MG/4 ML VIAL NEB SCH ×3 (07:26→23:31)
[2018-02-24] MEDS: CARBIDOPA/LEVA CR 25/100MG 1 TAB.SA PO SCH (09:00)
[2018-02-24] MEDS: PROSOURCE / PROSTAT (PYXIS) 30 ML UDC PO SCH ×2 (09:00→17:00)
--- NOTE | 2018-02-24 09:53 | NUR ---
Patient taken to OR for peg placement procedure this morning. Per [facility] CONSULTANT, patient tolerated well. Arrived back to ICU with stable vitals on 4L NC. Daughter at bedside
[2018-02-24 12:10] LABS: ABG BASE EXCESS 6.6 mmol/L; ABG OXYGEN SATURATION 96.1 % (92.0-98.5); ABG PCO2 49.1 mmHg (35.0-45.0); ABG PH 7.427 (7.350-7.450); ABG PO2 80.3 mmHg (75.0-100.0); AaDO2 61.4 mmHg; COHb 2.7 % (0.5-1.5); MetHb 1.3 % (0.0-1.5); O2Hb 92.3 % (94.0-97.0); SITE, ABG Left Radial; VENT MODE, BG Nasal Cannula
[2018-02-24] MEDS: DAKINS QUARTER STRENGTH (0.125%) 480 ML BOTTLE TOP SCH ×2 (13:04→13:06)
[2018-02-24] MEDS ORDERED: VANCOMYCIN 500 MG in IV D5W 100 ML IV SCH (17:00)
[2018-02-24] MEDS ORDERED: VANCOMYCIN 1 GM in IV D5W 250ml IV ONE (18:00)
[2018-02-24] MEDS: ACETAMINOPHEN 325 MG TABLET PO PRN (18:24)
--- NOTE | 2018-02-24 19:45 | NUR ---
ICU/OPTICAL TECHNICIAN RECEIVED REPORT FROM DAY NURSE. SEE FLOWSHEET FOR ASSESSMENT AND SKIN ISSUES WHICH ARE ADDRESSED HERE ALONG WITH THE INTERVENTIONS AND EXPECTED OUTCOMES. PT WAS TURNED AND REPOSITIONED FOR COMFORT AND CARE, WILL CONTINUE TO MONITOR THIS PT.
[2018-02-24] MEDS: IV D5W 1,000 ML IV PRN (20:34)
--- NOTE | 2018-02-24 20:40 | NUR ---
ICU/TIMBER SPRINKLER THERE WAS AN ORDER FROM DAY SHIFT TO START D5W@50 ML/HR. THIS ORDER WAS SEEN AND CARRIED OUT, ALONG WITH THE SCANNING OF IVF. PT WAS TURNED AND REPOSITIONED FOR COMFORT AND CARE.
[2018-02-24] MEDS: PANTOPRAZOLE 40 MG VIAL IV SCH (20:42)
[2018-02-25] VITALS (26 sets, daily range): BP systolic 110–161; BP diastolic 60–95
--- NOTE | 2018-02-25 01:00 | NUR ---
ICU/ACQUISITION SPECIALIST PT WAS GIVEN AM CARE ALONG WITH ORAL CARE. PT TOLERATED THIS WELL, REMAINS ON 2 LITERS N/C WITH SATURATION AT 98-100%. AT THIS TIME SACRAL WOUND DRESSING WAS DONE. PT WAS TURNED AND REPOSITIONED FOR COMFORT AND CARE.
[2018-02-25] MEDS: MEROPENEM 500 MG in IV NS 0.9% 50 ML IV SCH ×2 (01:28→13:51)
[2018-02-25] MEDS: ACETAMINOPHEN 325 MG TABLET PO PRN (02:20)
--- NOTE | 2018-02-25 02:30 | NUR ---
ICU/ELEVATOR SUPERVISOR PT APPEARS TO BE HAVING PAIN, FLACC SCALE WAS USED TO DETERMINE PAIN IS 5/10. TYLENOL WAS GIVEN VIA G/TUBE. PT WAS TURNED AND REPOSITIONED FOR COMFORT AND CARE.
--- NOTE | 2018-02-25 04:30 | NUR ---
ICU/MANAGEMENT ACCOUNTS MANAGER AM LABS WERE DRAWN ALONG WITH CHEST XRAY. AWAIT FOR ANY ABNORMAL LAB RESULTS.
[2018-02-25 04:41] LABS: BASOPHILS % (AUTO) 0.4 % (0.0-2.0); EOSINOPHILS % (AUTO) 1.2 % (0.0-6.0); HEMATOCRIT 24 % (33-45); HEMOGLOBIN 7.7 g/dL (11.5-14.8); LYMPHOCYTES # (AUTO) 1.2 /CMM (0.8-4.8); LYMPHOCYTES % (AUTO) 12.9 % (20.0-44.0); MEAN CORPUSCULAR HGB CONC 33 g/dl (31.0-36.0); MEAN CORPUSCULAR VOLUME 87 fL (82-100); MONOCYTES # (AUTO) 0.7 /CMM (0.1-1.30); NEUTROPHILS # (AUTO) 7.5 /CMM (1.8-8.9); NEUTROPHILS % (AUTO) 78.5 % (43.0-81.0); PLATELET COUNT (AUTO) 346 /CMM (150-450); RED BLOOD CELL COUNT(AUTO) 2.71 MIL/uL (4.0-5.2); WHITE BLOOD COUNT (AUTO) 9.6 K/uL (4.3-11.0)
[2018-02-25 04:56] LABS: CALCIUM, SERUM 8.8 mg/dL (8.5-10.1); CARBON DIOXIDE 33 mmol/L (21-32); CHLORIDE 112 mmol/L (98-107); CREATININE 1.3 mg/dL (0.6-1.3); GLUCOSE 108 mg/dL (74-106); POTASSIUM 3.3 mmol/L (3.5-5.1); SODIUM SERUM 150 mmol/L (136-145); UREA NITROGEN, BLOOD 35 mg/dL (7-18)
[2018-02-25] MEDS: COD LIVER OIL/ZINC OXIDE 120 GM TUBE TP SCH ×5 (05:48→19:42)
[2018-02-25 05:51] LABS: EOSINOPHILS % (MANUAL) 1 % (0-4); LYMPHOCYTES % (MANUAL) 9 % (16-48); MONOCYTES % (MANUAL) 14 % (0-11.0); NEUTROPHILS % (MANUAL) 76 (42-76)
--- NOTE | 2018-02-25 07:30 | NUR ---
ICU/RN: Pt received in bed, breathing even and unlabored, on O2 2L/min via NC, rhonchi noted on auscultation, oral care rendered. HOB elevated per aspiration precautions. IVF infusing well. FC to gravity. Dressing C/D/I. Will cont to monitor pt.
[2018-02-25] MEDS: ACETYLCYSTEINE 10% SOLN 400 MG/4 ML VIAL NEB SCH ×3 (07:42→22:43)
[2018-02-25] MEDS: DAKINS QUARTER STRENGTH (0.125%) 480 ML BOTTLE TOP SCH ×2 (08:04)
[2018-02-25] MEDS: PROSOURCE / PROSTAT (PYXIS) 30 ML UDC PO SCH ×2 (08:04→16:11)
[2018-02-25] MEDS: CARBIDOPA/LEVA CR 25/100MG 1 TAB.SA PO SCH (08:07)
[2018-02-25] MEDS: JEVITY 1.2 CAL 1,000 ML BOTTLE GT PRN (10:29)
[2018-02-25] MEDS ORDERED: POTASSIUM CHLORIDE 20 MEQ POWDER PACKET GT SCH (10:30)
[2018-02-25] MEDS: NYSTATIN/TRIAMCIN CREAM 15 GM TUBE TP SCH (11:06)
--- NOTE | 2018-02-25 11:45 | NUR ---
ICU/RN: FC changed via sterile technique per INGA Ruiz order. Immediate output of 75cc clear yellow urine noted. Pt tolerated well.
[2018-02-25] MEDS: IV D5W 1,000 ML IV PRN (14:42)
--- NOTE | 2018-02-25 15:00 | NUR ---
ICU/RN: Wound care, bed bath rendered. Turned and repositioned. Family at bedside.
--- NOTE | 2018-02-25 16:30 | NUR ---
ICU/RN: NT suctioning performed; moderate thick white secretions noted.
--- NOTE | 2018-02-25 19:25 | NUR ---
RN PLASMA CENTER. INITIAL ASSESSMENT. RECEIVED THE PT REST ON THE BED, OPEN EYES. DOES NOT FOLLOW COMMANDS. CUTTER AND EDGE TRIMMER SHOWING NSR. OXYGEN 2L VIA NASAL CANNULA. SAT 98%. NO ACUTE DISTRESS NOTED. IV RT UPPER ARM PICC LINE. IVF D5W 50ML/H. GT INTACT. JEVITY 20ML/H. FC PATENT. HOB ELEVATED AFEBRILE. WILL CONTINUE TO MONITOR VITALS.
[2018-02-25] MEDS: PANTOPRAZOLE 40 MG VIAL IV SCH (19:41)
[2018-02-26] VITALS (14 sets, daily range): BP systolic 96–121; BP diastolic 50–71
[2018-02-26] MEDS: MEROPENEM 500 MG in IV NS 0.9% 50 ML IV SCH ×2 (01:30→13:12)
[2018-02-26] MEDS: NYSTATIN/TRIAMCIN CREAM 15 GM TUBE TP SCH ×2 (01:31→12:04)
--- NOTE | 2018-02-26 03:33 | NUR ---
DIGITAL COMMUNICATIONS MANAGER. AM CARE, ORAL CARE, BED BATH GIVEN. LINEN CHANGED, REMAINING SAME OXYGEN TOLERATED WELL. SAT 99%. NO ACUTE DISTRESS NOTED. CONSTRUCTION SITE CROSSING GUARD SHOWING NSR. IV RT UPPER ARM PICC LINE IVF D5W 50ML/HGT FEEDING JEVITY 30ML/H. FC PATENT. URINE DRAINING. HOB ELEVATED, TURN AND REPOSITION Q2H. WILL CONTINUE TO MONITOR VITALS.
[2018-02-26] MEDS: COD LIVER OIL/ZINC OXIDE 120 GM TUBE TP SCH ×6 (03:55→20:00)
[2018-02-26 04:30] LABS: BASOPHILS # (AUTO) 0.1 /CMM (0.0-0.2); BASOPHILS % (AUTO) 0.5 % (0.0-2.0); HEMATOCRIT 24 % (33-45); HEMOGLOBIN 7.7 g/dL (11.5-14.8); LYMPHOCYTES # (AUTO) 1.4 /CMM (0.8-4.8); MEAN CORPUSCULAR HGB CONC 33 g/dl (31.0-36.0); MEAN CORPUSCULAR VOLUME 86 fL (82-100); MONOCYTES # (AUTO) 0.8 /CMM (0.1-1.30); MONOCYTES % (AUTO) 7.8 % (2.0-12.0); NEUTROPHILS % (AUTO) 76.7 % (43.0-81.0); PLATELET COUNT (AUTO) 343 /CMM (150-450); RED BLOOD CELL COUNT(AUTO) 2.74 MIL/uL (4.0-5.2); WHITE BLOOD COUNT (AUTO) 10.4 K/uL (4.3-11.0)
[2018-02-26 04:40] LABS: CALCIUM, SERUM 8.9 mg/dL (8.5-10.1); CARBON DIOXIDE 35 mmol/L (21-32); CHLORIDE 105 mmol/L (98-107); CREATININE 1.4 mg/dL (0.6-1.3); GLUCOSE 109 mg/dL (74-106); POTASSIUM 3.5 mmol/L (3.5-5.1); SODIUM SERUM 143 mmol/L (136-145); UREA NITROGEN, BLOOD 32 mg/dL (7-18)
--- NOTE | 2018-02-26 06:00 | NUR ---
[employer] ARCHITECT. TRANSFER THE PT TO ROOM 105, REPORT GIVEN TO MASHA PT IS STABLE.
--- NOTE | 2018-02-26 06:31 | NUR ---
TELE-TD/AUTOMOBILE DRIVERS RECEIVED PT IN BED 105 ACCOMPANIED BY ICU STAFF. PT RESTING IN BED COMFORTABLY. VSS AFEBRILE. WILL CONTINUE TO MONITOR.
--- NOTE | 2018-02-26 06:58 | NUR ---
CERTIFIED FLIGHT INSTRUCTOR. CALLED THE FAMILY.NO ANSWER LEFT THE MESSAGE. AT 0630.
[2018-02-26] MEDS: ACETYLCYSTEINE 10% SOLN 400 MG/4 ML VIAL NEB SCH ×3 (07:40→23:13)
[2018-02-26] MEDS: DAKINS QUARTER STRENGTH (0.125%) 480 ML BOTTLE TOP SCH ×2 (08:46)
[2018-02-26] MEDS: CARBIDOPA/LEVA CR 25/100MG 1 TAB.SA PO SCH (08:46)
[2018-02-26] MEDS: PROSOURCE / PROSTAT (PYXIS) 30 ML UDC PO SCH ×2 (08:49→17:47)
--- NOTE | 2018-02-26 09:02 | NUR ---
PT APPEARS TO BE MORE LETHARGIC THAN USUAL. DR VILLANUEVA AT BEDSIDE. ABG STAT ORDER ENTERED RT NOTIFIED.
[2018-02-26 09:20] LABS: ABG BASE EXCESS 5.3 mmol/L; ABG OXYGEN SATURATION 97.8 % (92.0-98.5); ABG PH 7.449 (7.350-7.450); ABG PO2 116.2 mmHg (75.0-100.0); AaDO2 31.5 mmHg; COHb 0.2 % (0.5-1.5); MetHb 0.9 % (0.0-1.5); O2Hb 96.7 % (94.0-97.0); SITE, ABG Right Radial; VENT MODE, BG nasal cannula
[2018-02-26] MEDS: IV D5W 1,000 ML IV PRN (10:31)
[2018-02-26] MEDS ORDERED: VANCOMYCIN 0.75 GM in IV D5W 250 ML IV SCH (18:00)
--- NOTE | 2018-02-26 18:00 | NUR ---
PT SUCTIONED NASALLY FOR VERY THICK SECRETIONS . TOLERATED SUCTIONING WELL. TYLENOL VIA GT PER DAUGHTERS REQUEST FOR POSSIBLE PAIN.
[2018-02-26] MEDS: ACETAMINOPHEN 325 MG TABLET PO PRN (18:18)
[2018-02-26] MEDS: Z GUARD REMEDY 2 OZ OINT TP SCH (21:44)
[2018-02-26] MEDS: PANTOPRAZOLE 40 MG VIAL IV SCH (21:44)
[2018-02-27] VITALS (10 sets, daily range): BP systolic 99–119; BP diastolic 51–74
[2018-02-27] MEDS: NYSTATIN/TRIAMCIN CREAM 15 GM TUBE TP SCH ×2 (00:22→12:24)
[2018-02-27] MEDS: JEVITY 1.2 CAL 1,000 ML BOTTLE GT PRN (00:25)
[2018-02-27] MEDS: MEROPENEM 500 MG in IV NS 0.9% 50 ML IV SCH ×2 (01:53→14:14)
[2018-02-27] MEDS: COD LIVER OIL/ZINC OXIDE 120 GM TUBE TP SCH ×6 (04:00→20:56)
[2018-02-27] MEDS: IV D5W 1,000 ML IV PRN (06:08)
--- NOTE | 2018-02-27 06:31 | NUR ---
RN NOTES IN BED LYING COMFORTABLY WITH EYES OPEN, NO TRACKING NOTED. BREATHING EVEN AND UNLABORED. NO PHYSICAL MANIFESTATION OF PAIN OR DISCOMFORT. NON VERBAL. GTUBE FEEDING TOLERATED WELL. VITAL SIGNS WNL. KEPT CLEAN AND DRY. WILL ENDORSE TO NEXT SHIFT FOR CONTINUITY OF CARE.
[2018-02-27 06:37] LABS: BASOPHILS % (AUTO) 0.3 % (0.0-2.0); EOSINOPHILS % (AUTO) 1.7 % (0.0-6.0); HEMATOCRIT 24 % (33-45); HEMOGLOBIN 7.9 g/dL (11.5-14.8); LYMPHOCYTES # (AUTO) 1.7 /CMM (0.8-4.8); LYMPHOCYTES % (AUTO) 13.4 % (20.0-44.0); MEAN CORPUSCULAR HGB CONC 32 g/dl (31.0-36.0); MEAN CORPUSCULAR VOLUME 86 fL (82-100); MONOCYTES # (AUTO) 0.8 /CMM (0.1-1.30); MONOCYTES % (AUTO) 6.6 % (2.0-12.0); NEUTROPHILS # (AUTO) 9.8 /CMM (1.8-8.9); PLATELET COUNT (AUTO) 384 /CMM (150-450); RED BLOOD CELL COUNT(AUTO) 2.85 MIL/uL (4.0-5.2); WHITE BLOOD COUNT (AUTO) 12.6 K/uL (4.3-11.0)
[2018-02-27 07:05] LABS: CALCIUM, SERUM 8.2 mg/dL (8.5-10.1); CARBON DIOXIDE 31 mmol/L (21-32); CHLORIDE 99 mmol/L (98-107); CREATININE 1.3 mg/dL (0.6-1.3); GLUCOSE 141 mg/dL (74-106); POTASSIUM 3.9 mmol/L (3.5-5.1); SODIUM SERUM 137 mmol/L (136-145); UREA NITROGEN, BLOOD 38 mg/dL (7-18)
[2018-02-27] MEDS: IPRATROPIUM NEB FS 0.5 MG/2.5 ML AMPUL.NEB NEB PRN ×2 (07:57→15:31)
[2018-02-27] MEDS: ACETYLCYSTEINE 10% SOLN 400 MG/4 ML VIAL NEB SCH ×3 (07:57→23:08)
[2018-02-27] MEDS: CARBIDOPA/LEVA CR 25/100MG 1 TAB.SA PO SCH (09:03)
[2018-02-27] MEDS: PROSOURCE / PROSTAT (PYXIS) 30 ML UDC PO SCH ×2 (09:04→16:54)
[2018-02-27] MEDS: DAKINS QUARTER STRENGTH (0.125%) 480 ML BOTTLE TOP SCH ×2 (09:05→09:06)
[2018-02-27] MEDS: Z GUARD REMEDY 2 OZ OINT TP SCH (09:05)
[2018-02-27] MEDS ORDERED: Prosource PO (10:58)
[2018-02-27] MEDS ORDERED: MERO500V3 IV (10:58)
[2018-02-27] MEDS ORDERED: LACT-209 GT (10:58)
[2018-02-27] MEDS ORDERED: SODI473S8 TOP (10:58)
[2018-02-27] MEDS: PANTOPRAZOLE 40 MG VIAL IV SCH (19:10)
--- NOTE | 2018-02-27 19:30 | NUR ---
LEMON GROWER NOTES, PATIENT IN BED WITH EYES OPEN, NO TRACKING NOTED WHEN TALKING TO HER, NON VERBAL BREATHING EVEN AND UNLABORED, NO S/S OF PAIN OR DISCOMFORT, NO SOB/ACUTE DISTRESS NOTED AT THIS TIME, ON 02 2LPM VIA NC, SATURATING WELL, GTUBE FEEDING INFUSING WELL AND PATIENT TOLERATED WELL, KEPT CLEAN AND DRY, WILL CONTINUE TO MONITOR CLOSELY.
[2018-02-27] MEDS: ALBUTEROL FS 2.5 MG/0.5 ML VIAL.NEB NEB PRN (23:08)
[2018-02-28] VITALS: BP 98/64
[2018-02-28] MEDS: IV D5W 1,000 ML IV PRN (00:18)
[2018-02-28] MEDS: NYSTATIN/TRIAMCIN CREAM 15 GM TUBE TP SCH (00:19)
[2018-02-28] MEDS: COD LIVER OIL/ZINC OXIDE 120 GM TUBE TP SCH ×3 (00:19→08:58)
[2018-02-28] MEDS: MEROPENEM 500 MG in IV NS 0.9% 50 ML IV SCH (02:31)
[2018-02-28 04:00] VITALS: BP 103/56
[2018-02-28] MEDS: JEVITY 1.2 CAL 1,000 ML BOTTLE GT PRN (04:36)
[2018-02-28 05:53] LABS: CALCIUM, SERUM 8.2 mg/dL (8.5-10.1); CARBON DIOXIDE 33 mmol/L (21-32); CHLORIDE 98 mmol/L (98-107); CREATININE 1.4 mg/dL (0.6-1.3); GLUCOSE 153 mg/dL (74-106); POTASSIUM 4.1 mmol/L (3.5-5.1); SODIUM SERUM 134 mmol/L (136-145); UREA NITROGEN, BLOOD 46 mg/dL (7-18)
--- NOTE | 2018-02-28 06:45 | NUR ---
SOCIAL WORK MANAGER NOTES, PATIENT IN BED SLEEPING AT THIS TIME, NON VERBAL BREATHING EVEN AND UNLABORED, NO S/S OF PAIN OR DISCOMFORT, NO SOB/ACUTE DISTRESS NOTED AT THIS TIME, ON 02 2LPM VIA NC, SATURATING WELL, STABLE DURING THE NIGHT, GTUBE FEEDING INFUSING WELL AND PATIENT TOLERATED WELL, KEPT CLEAN AND DRY, WOUND TREATMENT PROVIDED ORDERED, ALL MEDS DUE ADM, CALL LIGHT W/I REACH, DRY AND CLEAN F/C PATENT AND INTACT, DRAINING YELLOW URINE, BED LOCKED AND LOW POSITION, SAFETY PRECAUTIONS AT ALL TIMES, WILL ENDORSE CONTINUITY OF CARE TO ONCOMING NURSE.
--- NOTE | 2018-02-28 07:41 | NUR ---
MASTIC SPRAYER NOTE PT IN BED, ON 3L NC, NONVERAL, NOT TRACKING BOTH EYES, SKIN WARM TO TOUCH, NONRESPONSE TO VERBAL STIMULI, RR SLIGHTLY LABORED, O2 SAT 98%, TELE MONITOR SR ST WITH HR 104, L FOOT W/ EDEMA, KEEP ELEVATED, FC TO GRAVITY, YELLOW COLOR URINE, PT HAS GTUBE FEEDING AT 60ML/HR, NO RESIDUAL NOTED, JOSE PICC LINE, DRESSING INTACT NO BLEEDING NOTED, ON IV FLUID ORDERED, BED LOW LOCKED POSITION, CALL LIGHT WITHIN REACH, WILL MONITOR CLOSELY, PLAN OF CARE DISCUSSED WITH PT.
[2018-02-28] MEDS: ACETYLCYSTEINE 10% SOLN 400 MG/4 ML VIAL NEB SCH (07:43)
[2018-02-28 08:00] VITALS: BP_SYST 94; BP_SYST 98; BP_DIAS 55; BP_DIAS 64
--- NOTE | 2018-02-28 08:10 | NUR ---
SUPERVISOR COAL HANDLING NOTES ENDORSED CARE TO LYNDA HE FOR FURTHER CARE
--- NOTE | 2018-02-28 08:30 | NUR ---
PT RECIVED IN BED FAMILY AT BED , STATES PT IS DISCHARGED TO HOME , PT IS ALERT NO ACUTE DISTRESS , TUBE FEEDING IN PROGRESS , RESIDUAL CHECKED NIL ASPIRATED , TUBE FLUSHED AND CLAMPED , PT IS D/C SCHMITT CATHETER DRAINING CLEAR YELLOW URINE , RT UPPER ARM PICC LINE SITE NO REDNESS, LINE FLUSHED WITH SALINE , SACRAL WOUND DRESSING CHANGED PER ORDER VITAL STAGE OXYGEN SAT 89 TO 94% ON ROOM AIR , PT ASSISTED UP IN
[2018-02-28] MEDS: DAKINS QUARTER STRENGTH (0.125%) 480 ML BOTTLE TOP SCH ×2 (08:58→09:12)
[2018-02-28] MEDS: CARBIDOPA/LEVA CR 25/100MG 1 TAB.SA PO SCH (09:06)
[2018-02-28] MEDS: Z GUARD REMEDY 2 OZ OINT TP SCH (09:12)
--- NOTE | 2018-02-28 09:25 | NUR ---
pT DC TO FAMILY VIA WHEEL CHAIR OXYGEN SAT ROOM AIR 94% NO SIGNS OF PAIN NOTEDED
[2018-03-01] MEDS ORDERED: VANCOMYCIN 0.75 GM in IV D5W 250 ML IV SCH (06:00)
[2018-04-02] MEDS ORDERED: DAPT500V IV (14:42)
[2018-04-02] MEDS ORDERED: METO-295 PO (14:42)
[2018-04-02] MEDS ORDERED: NUT.237L25 GT ×2 (14:42)
[2018-04-02] MEDS ORDERED: ERTA1VIA IV (14:42)
== END 2018-02-28 09:25 | disposition home or self-care (01) | DRG 853 ==
LOC: ER 11:44 → MERGE 13:47 → TELE-TD 13:47 → TELE1 15:42 → TELE-TD 02-12 21:24 → TELE1 02-13 17:40 → MEDSG1 02-16 16:19 → UNDODISIN 02-17 17:45 → TELE1 02-17 18:08 → MEDSG1 02-19 09:50 → ICU 02-21 10:42 → TELE-TD 02-26 06:15 → TELE1 02-26 15:17
PROVIDERS: ADMIT Nurse Practitioner Acute Care; ATTEND Family Medicine
PROC: 0QB10ZZ Excision of Sacrum, Open Approach (ICD-10-PCS; 2018-02-13)
PROC: 30233N1 Transfusion of Nonautologous Red Blood Cells into Peripheral Vein, Percutaneous Approach (ICD-10-PCS; 2018-02-13)
PROC: 02HV33Z Insertion of Infusion Device into Superior Vena Cava, Percutaneous Approach (ICD-10-PCS; 2018-02-13)
PROC: B548ZZA Ultrasonography of Superior Vena Cava, Guidance (ICD-10-PCS; 2018-02-13)
PROC: 5A09457 Assistance with Respiratory Ventilation, 24-96 Consecutive Hours, Continuous Positive Airway Pressure (ICD-10-PCS; principal; 2018-02-21)
PROC: 0DH63UZ Insertion of Feeding Device into Stomach, Percutaneous Approach (ICD-10-PCS; 2018-02-24)
DX: A41.9 Sepsis, unspecified organism (principal); L89.154 Pressure ulcer of sacral region, stage 4; G93.41 Metabolic encephalopathy; I50.33 Acute on chronic diastolic (congestive) heart failure; J69.0 Pneumonitis due to inhalation of food and vomit; J15.6 Pneumonia due to other Gram-negative bacteria; J15.9 Unspecified bacterial pneumonia; R53.2 Functional quadriplegia; J96.01 Acute respiratory failure with hypoxia; N17.0 Acute kidney failure with tubular necrosis; J96.02 Acute respiratory failure with hypercapnia; I21.4 Non-ST elevation (NSTEMI) myocardial infarction; C90.01 Multiple myeloma in remission; D61.818 Other pancytopenia; D68.59 Other primary thrombophilia; E87.1 Hypo-osmolality and hyponatremia; B37.49 Other urogenital candidiasis; M86.9 Osteomyelitis, unspecified; L97.319 Non-pressure chronic ulcer of right ankle with unspecified severity; E87.0 Hyperosmolality and hypernatremia; E87.2 Acidosis; E44.0 Moderate protein-calorie malnutrition; J98.11 Atelectasis; F03.90 Unspecified dementia, unspecified severity, without behavioral disturbance, psychotic disturbance, mood disturbance, and anxiety; Z87.440 Personal history of urinary (tract) infections; Z87.01 Personal history of pneumonia (recurrent); Z86.718 Personal history of other venous thrombosis and embolism; Z74.01 Bed confinement status; D63.8 Anemia in other chronic diseases classified elsewhere; K21.9 Gastro-esophageal reflux disease without esophagitis; Z98.890 Other specified postprocedural states; Z79.01 Long term (current) use of anticoagulants; Z79.899 Other long term (current) drug therapy; Z86.14 Personal history of Methicillin resistant Staphylococcus aureus infection; R13.10 Dysphagia, unspecified; N18.2 Chronic kidney disease, stage 2 (mild); K59.00 Constipation, unspecified; L30.9 Dermatitis, unspecified; L30.4 Erythema intertrigo; M62.40 Contracture of muscle, unspecified site; R32 Unspecified urinary incontinence; I25.10 Atherosclerotic heart disease of native coronary artery without angina pectoris; E87.6 Hypokalemia; E83.42 Hypomagnesemia; E83.39 Other disorders of phosphorus metabolism; E16.2 Hypoglycemia, unspecified; D53.9 Nutritional anemia, unspecified; D50.9 Iron deficiency anemia, unspecified; D89.9 Disorder involving the immune mechanism, unspecified; I70.0 Atherosclerosis of aorta
CPT/HCPCS: 31720; 36415; 36600; 43246; 71045-TC; 72220-TC; 80048-TC; 80053-TC; 80076-TC; 80202-TC; 81000-TC; 82247-TC; 82248-TC; 82272-TC; 82570-TC; 82728-TC; 82803-TC; 82962-TC; 83540-TC; 83605-TC; 83735-TC; 83935-TC; 84100-TC; 84300-TC; 84443-TC; 84484-TC; 84550-TC; 85025-TC; 85027-TC; 85610-TC; 85730-TC; 86850-TC; 86921-TC; 87040-TC; 87070-TC; 87081-TC; 87086-TC; 92526; 92611-TC; 94760-TC; 94799-TC; A4216; A6253; A6402; A6403; C1751; C9113; G0378; J1580; J1644; J1940; J1956; J2185; J2543; J2704; J3370; J3475; J3490; J7030; J7040; J7042; J7050; J7060; J7070; P9016-BL

== ENCOUNTER 2018-03-15 13:05 | Outpatient (CLI) | payer MEDICARE, BC ==
[~2018-03-15 13:05] MED LIST changes: -ENOX60DI8 SQ; +LACT-209 GT; +MERO500V3 IV; +Prosource PO; +SODI473S8 TOP; +VANC1VIA2 IV
[2018-03-15 16:08] LABS: MONOCYTES # (AUTO) 0.9 /CMM (0.1-1.30); MONOCYTES % (AUTO) 4.2 % (2.0-12.0)
[2018-03-15 16:26] LABS: BASOPHILS # (AUTO) 0.1 /CMM (0.0-0.2); BASOPHILS % (AUTO) 0.4 % (0.0-2.0); EOSINOPHILS % (AUTO) 0.4 % (0.0-6.0); HEMATOCRIT 28 % (33-45); HEMOGLOBIN 9.2 g/dL (11.5-14.8); LYMPHOCYTES # (AUTO) 1.4 /CMM (0.8-4.8); LYMPHOCYTES % (AUTO) 6.6 % (20.0-44.0); MEAN CORPUSCULAR HGB CONC 32 g/dl (31.0-36.0); MEAN CORPUSCULAR VOLUME 85 fL (82-100); NEUTROPHILS # (AUTO) 18.9 /CMM (1.8-8.9); NEUTROPHILS % (AUTO) 88.4 % (43.0-81.0); PLATELET COUNT (AUTO) 536 /CMM (150-450); RED BLOOD CELL COUNT(AUTO) 3.36 MIL/uL (4.0-5.2); WHITE BLOOD COUNT (AUTO) 21.4 K/uL (4.3-11.0)
[2018-03-15 16:29] LABS: ALANINE AMINOTRANSFERASE 26 U/L (12-78); ALBUMIN 2.3 g/dL (3.4-5.0); ALKALINE PHOSPHATASE 123 U/L (46-116); ASPARTATE AMINOTRANSFERASE 20 U/L (15-37); BILIRUBIN,TOTAL 0.6 mg/dL (0.2-1.0); CALCIUM, SERUM 9.9 mg/dL (8.5-10.1); CARBON DIOXIDE 29 mmol/L (21-32); CHLORIDE 92 mmol/L (98-107); CREATININE 1.9 mg/dL (0.6-1.3); GLUCOSE 97 mg/dL (74-106); POTASSIUM 4.2 mmol/L (3.5-5.1); SODIUM SERUM 131 mmol/L (136-145)
[2018-03-15 16:32] LABS: UREA NITROGEN, BLOOD 84 mg/dL (7-18)
[2018-03-15 16:39] LABS: PREALBUMIN 25.8 MG/DL (18.0-35.7)
[2018-03-15] MEDS ORDERED: CALC667C6 GT (19:36)
[2018-03-15] MEDS ORDERED: CARB-93 GT (19:36)
[2018-04-02] MEDS ORDERED: NUT.237L25 GT ×2 (14:42)
[2018-04-02] MEDS ORDERED: ERTA1VIA IV (14:42)
[2018-04-02] MEDS ORDERED: DAPT500V IV (14:42)
[2018-04-02] MEDS ORDERED: METO-295 PO (14:42)
== END 2018-03-15 23:59 | disposition home health service (06) ==
LOC: MERGE 13:05 → WOU 13:05
PROVIDERS: ATTEND Podiatrist Foot & Ankle Surgery
DX: L89.513 Pressure ulcer of right ankle, stage 3 (principal); Z93.1 Gastrostomy status; L89.154 Pressure ulcer of sacral region, stage 4; M46.28 Osteomyelitis of vertebra, sacral and sacrococcygeal region; F01.50 Vascular dementia, unspecified severity, without behavioral disturbance, psychotic disturbance, mood disturbance, and anxiety; I25.2 Old myocardial infarction; K21.9 Gastro-esophageal reflux disease without esophagitis; Z86.718 Personal history of other venous thrombosis and embolism; Z85.9 Personal history of malignant neoplasm, unspecified
CPT/HCPCS: 11042; 36415; 80053; 84134; 85025; 87070; 87075; 87077; 87086; 87186; A6402 ×2; A6407; G0463; J7040

== ENCOUNTER 2018-03-15 17:50 | Inpatient (IN) | payer MEDICARE, BC ==
[~2018-03-15] VITALS: Ht 160 cm; Wt 59.4 kg
--- NOTE | 2018-03-15 18:11 | NUR ---
PTBIB DAUGHTER SENT BY DR. MISHRA D/T ABD LABS WBC 21, STAGE 4 SACRAL ULCER, SCHMITT CATH, GT, PT IS AAOX0, NOT IN RESPIRATORY DISTRESS, V/S STABLE, KEPT RESTED AND COMFORTABLE, HOOKED TO MONITOR.
[2018-03-15] MEDS ORDERED: IV NS 0.9% 1,000 ML BAG IV ONE ×2 (18:30→20:00)
--- NOTE | 2018-03-15 18:30 | NUR ---
SEEN AND EXAMINED BY DR. GORE.
--- NOTE | 2018-03-15 18:42 | NUR ---
LABS DRAWNED AND SENT TO LAB.
--- NOTE | 2018-03-15 19:12 | NUR ---
RADIOLOGY AT BEDSIDE FOR XRAY.
[2018-03-15 19:14] LABS: BASOPHILS % (AUTO) 0.2 % (0.0-2.0); EOSINOPHILS % (AUTO) 0.7 % (0.0-6.0); HEMATOCRIT 27 % (33-45); HEMOGLOBIN 8.7 g/dL (11.5-14.8); LYMPHOCYTES # (AUTO) 1.3 /CMM (0.8-4.8); LYMPHOCYTES % (AUTO) 6.5 % (20.0-44.0); MEAN CORPUSCULAR HGB CONC 32 g/dl (31.0-36.0); MEAN CORPUSCULAR VOLUME 85 fL (82-100); MONOCYTES % (AUTO) 4.9 % (2.0-12.0); NEUTROPHILS # (AUTO) 17.2 /CMM (1.8-8.9); NEUTROPHILS % (AUTO) 87.7 % (43.0-81.0); PLATELET COUNT (AUTO) 541 /CMM (150-450); WHITE BLOOD COUNT (AUTO) 19.6 K/uL (4.3-11.0)
--- NOTE | 2018-03-15 19:17 | NUR ---
PICC LINE NURSE AT BEDSIDE.
[2018-03-15 19:28] LABS: ALANINE AMINOTRANSFERASE 26 U/L (12-78); ALBUMIN 2.2 g/dL (3.4-5.0); ALKALINE PHOSPHATASE 120 U/L (46-116); ASPARTATE AMINOTRANSFERASE 19 U/L (15-37); BILIRUBIN,DIRECT 0.1 mg/dL (0.0-0.2); BILIRUBIN,TOTAL 0.6 mg/dL (0.2-1.0); CALCIUM, SERUM 10.3 mg/dL (8.5-10.1); CARBON DIOXIDE 31 mmol/L (21-32); CHLORIDE 93 mmol/L (98-107); GLUCOSE 102 mg/dL (74-106); POTASSIUM 4.2 mmol/L (3.5-5.1); SODIUM SERUM 132 mmol/L (136-145); TOTAL PROTEIN, SERUM 6.8 g/dL (6.4-8.2)
[2018-03-15] MEDS ORDERED: CARB-93 GT (19:36)
[2018-03-15] MEDS ORDERED: CALC667C6 GT (19:36)
[2018-03-15 19:50] LABS: UREA NITROGEN, BLOOD 86 mg/dL (7-18)
--- NOTE | 2018-03-15 19:53 | NUR ---
URINE SPECIMEN COLLECTED AND SENT TO LAB.
--- NOTE | 2018-03-15 19:54 | NUR ---
REPORT GIVEN TO CHARLEY EH FOR FAUZIA.
[2018-03-15 19:56] LABS: APPEARANCE,URINE Clear (CLEAR); BILIRUBIN,URINE Negative (NEGATIVE); BLOOD, URINE Trace-lysed Ery/uL (NEGATIVE); COLOR,URINE Yellow (YELLOW); KETONES,URINE Negative (NEGATIVE); LEUKOCYTE ESTERASE ,URINE Small (NEGATIVE); NITRITE, URINE Negative (NEGATIVE); PH,URINE 6.5 (5.0-8.0); PROTEIN,URINE 30 mg/dl (NEGATIVE); UGLUCOSE Negative (NEGATIVE); UROBILINOGEN,URINE 0.2 EU/dL (0.2)
[2018-03-15 20:14] LABS: WBC,URINE TOO NUMEROUS TO COUN /HPF (0-3)
[2018-03-15 20:15] LABS: BACTERIA,URINE Few /HPF (None Seen); SQUAMOUS EPITHELIAL CELL,UR Moderate /HPF (None Seen); URINE AMORPHOUS URATE Few /HPF (None Seen)
[2018-03-15] MEDS ORDERED: ACETAMINOPHEN 650 MG/20.3 ML UDC ONE (20:22)
[2018-03-15] MEDS ORDERED: ACETAMINOPHEN 650 MG/20 ML UDC- SA PATIENTS-PAIN ONLY GT PRN (20:30)
--- NOTE | 2018-03-15 20:35 | NUR ---
OPERATIONS TECHNICIAN JAYJAY AT BEDSIDE.
--- NOTE | 2018-03-15 21:05 | NUR ---
REPORT GIVEN TO BARRERA HE FOR FAUZIA.
[2018-03-15] MEDS ORDERED: MORPHINE SULFATE INJ 4 MG/ML DISP.SYRIN IV PRN (21:30)
[2018-03-15] MEDS ORDERED: MAG HYDROX/AL HYDROX/SIMETH 30 ML UDC PO PRN (21:30)
[2018-03-15] MEDS ORDERED: LORAZEPAM INJ 2 MG/ML VIAL IV PRN (21:30)
[2018-03-15] MEDS ORDERED: HYDROCODONE/APAP 5/325MG 1 EACH TABLET PO PRN (21:30)
[2018-03-15] MEDS ORDERED: MAGNESIUM HYDROXIDE 30 ML UDC PO PRN (21:30)
[2018-03-15] MEDS ORDERED: Z GUARD REMEDY 2 OZ OINT TP PRN (21:30)
[2018-03-15] MEDS ORDERED: ZOLPIDEM TARTRATE 5 MG TABLET PO PRN (21:30)
[2018-03-15] MEDS ORDERED: CLONIDINE HCL 0.1 MG TABLET PO PRN (21:30)
[2018-03-15] MEDS ORDERED: ONDANSETRON HCL/PF 4 MG/2 ML VIAL IVP PRN (21:30)
--- NOTE | 2018-03-15 21:30 | NUR ---
SHIPPER AND RECEIVING NOTE RECEIVED PT FROM ER VIA GREG ACCOMPANIED BY YVONNE (DAUGHTER). PT IS NONVERBAL A&OX0. PT RECEIVED A NEW FC FR #16 IN ER. FC INTACT WITH ADEQUATE URINE DRAINING. PICC LINE JOSE INFUSING NS, TOLERATING WELL. GTUBE PATENT AND INTACT, NO RESIDUAL. DAUGHTER STATED SHE DOES NOT WANT BODY CHECK TO BE DONE TONIGHT, AND WANTS HER MOTHER TO REST. BELONGINGS ACCOUNTED AND SIGNED FOR, PLACED IN CHART. SAFETY MEASURES IN PLACE: BED LOW, LOCKED, UPPER RAILS UP X2, AND CALL LIGHT WITHIN REACH. WILL CONTINUE TO MONITOR.
[2018-03-15 22:00] VITALS: BP 93/55
--- NOTE | 2018-03-15 23:44 | NUR ---
STITCHDOWNS TOE FORMER NOTE DAVIDI MATTRESS BROUGHT UP FOR PT. PT'S DAUGHTER REITERATED THAT SHE WOULD LIKE HER MOM TO REST TONIGHT AND TO PUT MATTRESS ON IN THE AM ALONG WITH BODY CHECK. RISK AND BENEFITS EXPLAINED, WITH VERBALIZATION OF UNDERSTANDING. WILL CONT TO MONITOR.
[2018-03-16] VITALS: BP 111/61
--- NOTE | 2018-03-16 00:03 | NUR ---
PRINCIPAL ANDROID DEVELOPER NOTE NOTIFIED NICOLASA OF PT DIETARY ORDER MISSING. PT HAS GTUBE, NOTIFIED DAUGHTER TO ASK WHAT FEEDING PT IS ON AT HOME. DAUGHTER STATED SHE DOES NOT KNOW AND WILL F/U IN AM WITH PROPER FEEDING. PER GROUP LEADER, PLACE PT ON NPO UNTIL FEEDING IS VERIFIED WITH DAUGHTER. NEW ORDER CARRIED OUT. WILL ENDORSE TO NEXT SHIFT IN AM.
[2018-03-16 04:00] VITALS: BP 104/62
--- NOTE | 2018-03-16 06:48 | NUR ---
COOK ROAST NOTE PT. IN STABLE CONDITION A&O X0. NO SIGNS OF SOB OR DISTRESS. NO FACIAL GRIMACING TO INDICATE PAIN. IVF NS @ 100 ML/HR INFUSING VIA PICC LINE IN JOSE, TOLERATING WELL. SCHMITT CATH PATENT AND INTACT WITH ADEQUATE URINE DRAINING. BODY CHECK DONE WITH PHOTOS IN CHART. PER DAUGHTER REQUEST, SACRAL DRESSING WAS NOT REMOVED UNTIL SEEN FOR WOUND CONSULT. [employer] MATTRESS PLACED ORDERED. ALL CURRENT NEEDS MET AND ATTENDED TO. SAFETY PRECAUTIONS IN PLACE: BED LOW, LOCKED, UPPER RAILS UP X2, AND CALL LIGHT WITHIN REACH. WILL ENDORSE TO NEXT SHIFT FOR FAUZIA.
--- NOTE | 2018-03-16 07:20 | NUR ---
SUPERINTENDENT GENERATING PLANT. PT RECEIVED EYES OPEN, A&0X0, NON VERBAL. PT WITH O2 VIA NC AT 2LPM AND WITHOUT RESP DISTRESS. PT WITHOUT OBVIOUS PAIN OR DISCOMFORT. PT WITH R UA MIDLINE INTACT AND OPERATIONAL WITH IVF PER RX. G.TUBE WITH 0CC RESIDUAL, FLUSHED WITH 80CC AND NAD. PT WITH SCHMITT INTACT AND OPERATIONAL WITH LITE YELLOW URINE IN COLLECTION. PT REPOSITIONED AND OFFLOADED. WOUND DRESSINGS CLEAN AND INTACT. BED IN LOWEST LOCKED POSITION WITH HADNRAILSX2 AND CALL GUEVARA WITHIN REACH. WILL CONTINUE POC.
--- NOTE | 2018-03-16 07:56 | NUR ---
TELE.RN. DTR CALLED FOR DIET RX, DTR UNCLEAR AND STATES RN CARDIOLOGY WILL PROVIDE DETAILS WHEN THEY ARRIVE AROUND 0800 THIS AM. POC DISCUSSED.
[2018-03-16 08:00] VITALS: BP 91/50
[2018-03-16 08:24] LABS: ALANINE AMINOTRANSFERASE 23 U/L (12-78); ALBUMIN 1.9 g/dL (3.4-5.0); ALKALINE PHOSPHATASE 98 U/L (46-116); ASPARTATE AMINOTRANSFERASE 20 U/L (15-37); BILIRUBIN,TOTAL 0.5 mg/dL (0.2-1.0); CARBON DIOXIDE 28 mmol/L (21-32); CHLORIDE 99 mmol/L (98-107); CREATININE 1.7 mg/dL (0.6-1.3); GLUCOSE 87 mg/dL (74-106); MAGNESIUM 2.5 mg/dL (1.8-2.4); PHOSPHORUS 6.3 mg/dL (2.5-4.9); SODIUM SERUM 137 mmol/L (136-145); TOTAL PROTEIN, SERUM 5.8 g/dL (6.4-8.2); UREA NITROGEN, BLOOD 70 mg/dL (7-18)
[2018-03-16 08:37] LABS: BASOPHILS % (AUTO) 0.3 % (0.0-2.0); EOSINOPHILS % (AUTO) 0.8 % (0.0-6.0); HEMATOCRIT 24 % (33-45); HEMOGLOBIN 7.8 g/dL (11.5-14.8); LYMPHOCYTES # (AUTO) 1.2 /CMM (0.8-4.8); MEAN CORPUSCULAR HGB CONC 32 g/dl (31.0-36.0); MEAN CORPUSCULAR VOLUME 85 fL (82-100); MONOCYTES # (AUTO) 0.8 /CMM (0.1-1.30); MONOCYTES % (AUTO) 5.2 % (2.0-12.0); NEUTROPHILS # (AUTO) 12.5 /CMM (1.8-8.9); NEUTROPHILS % (AUTO) 85.7 % (43.0-81.0); PLATELET COUNT (AUTO) 412 /CMM (150-450); RED BLOOD CELL COUNT(AUTO) 2.81 MIL/uL (4.0-5.2); WHITE BLOOD COUNT (AUTO) 14.5 K/uL (4.3-11.0)
[2018-03-16] MEDS: PANTOPRAZOLE 40 MG VIAL IV SCH (09:37)
[2018-03-16] MEDS: CALCIUM ACETATE 667 MG TABLET PO SCH ×3 (09:38→17:02)
[2018-03-16] MEDS: CARBIDOPA/LEVODOPA 25/100 MG 1 UDTAB PO SCH ×2 (09:38→17:02)
[2018-03-16] MEDS: HEPARIN SODIUM, PORCINE 5000 UNITS/1 ML VIAL SQ SCH ×2 (09:46→21:16)
[2018-03-16 11:00] VITALS: BP 107/63
--- NOTE | 2018-03-16 11:00 | NUR ---
HPNE CONSENT RECEIVED FROM PT FOR SACRAL DEBRIDEMENT. Addendum: 03/16/18 at 1224 by ASHLY ZIEGLER RN PHONE
[2018-03-16] MEDS: JEVITY 1.2 CAL 1,000 ML BOTTLE GT PRN (11:34)
[2018-03-16] MEDS: ACETAMINOPHEN 325 MG TABLET PO PRN (12:02)
[2018-03-16] MEDS: IV NS 0.9% 1,000 ML IV PRN (12:04)
--- NOTE | 2018-03-16 14:00 | NUR ---
SUSAN. WOUND CX SUBMITTED. WOUND CARE COMPLETED AGAIN.
[2018-03-16 16:00] VITALS: BP 107/63
[2018-03-16] MEDS ORDERED: FEE PK DOSING 1 MIN EA MC ONE (16:31)
[2018-03-16] MEDS: DAKINS QUARTER STRENGTH (0.125%) 480 ML BOTTLE TOP SCH (16:43)
[2018-03-16] MEDS: NYSTATIN/TRIAMCIN CREAM 15 GM TUBE TP SCH (16:43)
[2018-03-16] MEDS ORDERED: VANCOMYCIN 0.75 GM in IV D5W 250 ML IV SCH (17:00)
[2018-03-16] MEDS: CEFEPIME 1 GM in IV D5W 50 ML IV SCH (17:04)
--- NOTE | 2018-03-16 18:03 | NUR ---
PERSONAL COMPANION. PT REMAINS EYES OPEN, A&0X0, NON VERBAL. PT WITH O2 VIA NC AT 2LPM AND WITHOUT RESP DISTRESS. PT WITHOUT OBVIOUS PAIN OR DISCOMFORT. PT WITH R UA MIDLINE INTACT AND OPERATIONAL WITH IVF PER RX. G.TUBE WITH GTF PER RX. PT WITH SCHMITT INTACT AND OPERATIONAL WITH LITE YELLOW URINE IN COLLECTION. PT REPOSITIONED AND OFFLOADED Q2HR OR SOONER. WOUND DRESSINGS CLEAN AND INTACT. BED IN LOWEST LOCKED POSITION WITH HANDRAILSX2 AND CALL GUEVARA WITHIN REACH. WILL ENDORSE TO NIGHT NURSE AT BEDSIDE FOR FAUZIA.
--- NOTE | 2018-03-16 19:25 | NUR ---
TELE/RN NOTES RECEIVED PT. LYING IN BED WITH EYES OPEN. BREATHING EVEN AND UNLABORED ON ROOM AIR. NO SOB, RESPIRATORY DISTRESS OR COMPLAINTS OF PAIN NOTED AT THIS TIME. PT. WITH EXTERNAL POULTRY FARMER PRESENT AND INTACT CURRENT RHYTHM = SINUS TACHYCARDIA HR 103. PT. WITH RIGHT UPPER ARM PICC LINE PRESENT, PATENT AND INTACT ADMINISTERING TO PT. NS @ 100ML/HR. PT. WITH G-TUBE PRESENT, PATENT AND INTACT ADMINISTERING TO PT. JEVITY @ 60ML/HR. PT. TOLERATING FEEDING WELL, NO RESIDUAL NOTED AT THIS TIME. PT. WITH SCHMITT CATHETER PRESENT, PATENT AND INTACT. PT. FAMILY MEMBER PRESENT AT BEDSIDE. BED LOCKED AND IN LOWEST POSITION, SIDE RAILS UP X3, BED ALARM ON, WILL CONTINUE TO MONITOR.
[2018-03-16 20:00] VITALS: BP 115/57
[2018-03-17] VITALS: BP 115/57
[2018-03-17] MEDS: NYSTATIN/TRIAMCIN CREAM 15 GM TUBE TP SCH ×2 (03:28→14:52)
[2018-03-17 04:00] VITALS: BP 120/68
[2018-03-17] MEDS: IV NS 0.9% 1,000 ML IV PRN ×3 (04:53→18:43)
[2018-03-17] MEDS: CEFEPIME 1 GM in IV D5W 50 ML IV SCH ×2 (04:53→17:36)
[2018-03-17] MEDS: JEVITY 1.2 CAL 1,000 ML BOTTLE GT PRN (04:53)
[2018-03-17 05:49] VITALS: BP 120/68
--- NOTE | 2018-03-17 06:45 | NUR ---
TELE/RN NOTES PT. IS LYING IN BED RESTING. BREATHING EVEN AND UNLABORED ON ROOM AIR. NO SOB, RESPIRATORY DISTRESS OR COMPLAINTS OF PAIN NOTED AT THIS TIME. PT. WITH EXTERNAL WARDROBE ASSISTANT PRESENT AND INTACT CURRENT RHYTHM = SINUS TACHYCARDIA HR 102. PT. WITH RIGHT UPPER ARM PICC LINE PRESENT, PATENT AND INTACT ADMINISTERING TO PT. NS @ 100ML/HR. PT. WITH G-TUBE PRESENT, PATENT AND INTACT ADMINISTERING TO PT. JEVITY @ 60ML/HR. PT. TOLERATING FEEDING WELL, NO RESIDUAL NOTED AT THIS TIME AND THROUGHOUT SHIFT. PT. WITH SCHMITT CATHETER PRESENT, PATENT AND INTACT. ALL PT. NEEDS MET. PT. OFFLOADED, TURNED AND REPOSITIONED Q2H AND NEEDED. BED LOCKED AND IN LOWEST POSITION, SIDE RAILS UP X3, BED ALARM ON, WILL ENDORSE TO DAYSHIFT NURSE FOR CONTINUITY OF CARE.
--- NOTE | 2018-03-17 07:35 | NUR ---
WOUND CARE CONSULT WOUND CARE RECEIVED CONSULT FOR RLE, SACRAL WOUND. WOUND CARE WILL DEFER CONSULT AND TREATMENT PLANS TO PLASTIC SURGICAL TEAM AND DPM DR MARTINEZ WHO ARE ALL CURRENTLY FOLLOWING THIS PATIENT. PATIENT WITH DONN AT 11, ALL PRESSURE ULCER PREVENTION MEASURES ARE CURRENTLY IN PLACE. WILL SEE PRN.
[2018-03-17 07:39] LABS: BASOPHILS % (AUTO) 0.2 % (0.0-2.0); EOSINOPHILS % (AUTO) 1.8 % (0.0-6.0); HEMATOCRIT 24 % (33-45); HEMOGLOBIN 7.8 g/dL (11.5-14.8); LYMPHOCYTES # (AUTO) 0.9 /CMM (0.8-4.8); LYMPHOCYTES % (AUTO) 7.5 % (20.0-44.0); MEAN CORPUSCULAR HGB CONC 32 g/dl (31.0-36.0); MEAN CORPUSCULAR VOLUME 85 fL (82-100); MONOCYTES # (AUTO) 0.7 /CMM (0.1-1.30); MONOCYTES % (AUTO) 5.3 % (2.0-12.0); NEUTROPHILS # (AUTO) 10.5 /CMM (1.8-8.9); NEUTROPHILS % (AUTO) 85.2 % (43.0-81.0); PLATELET COUNT (AUTO) 436 /CMM (150-450); RED BLOOD CELL COUNT(AUTO) 2.81 MIL/uL (4.0-5.2); WHITE BLOOD COUNT (AUTO) 12.3 K/uL (4.3-11.0)
[2018-03-17 07:51] LABS: CALCIUM, SERUM 9.1 mg/dL (8.5-10.1); CARBON DIOXIDE 27 mmol/L (21-32); CHLORIDE 104 mmol/L (98-107); CREATININE 1.5 mg/dL (0.6-1.3); GLUCOSE 142 mg/dL (74-106); MAGNESIUM 2.2 mg/dL (1.8-2.4); PHOSPHORUS 4.2 mg/dL (2.5-4.9); POTASSIUM 4.4 mmol/L (3.5-5.1); SODIUM SERUM 141 mmol/L (136-145); UREA NITROGEN, BLOOD 58 mg/dL (7-18)
[2018-03-17 08:00] VITALS: BP 124/65
[2018-03-17] MEDS: CALCIUM ACETATE 667 MG TABLET PO SCH ×3 (08:19→18:43)
[2018-03-17] MEDS: PANTOPRAZOLE 40 MG VIAL IV SCH (08:31)
[2018-03-17] MEDS: HEPARIN SODIUM, PORCINE 5000 UNITS/1 ML VIAL SQ SCH ×2 (08:32→21:35)
[2018-03-17] MEDS: DAKINS QUARTER STRENGTH (0.125%) 480 ML BOTTLE TOP SCH (08:47)
[2018-03-17] MEDS: CADEXOMER IODINE 40 GM TUBE TP SCH (08:47)
[2018-03-17] MEDS: CARBIDOPA/LEVODOPA 25/100 MG 1 UDTAB PO SCH ×2 (09:01→17:35)
--- NOTE | 2018-03-17 10:00 | NUR ---
PER SPEECH THERAPIST PT. PASSED THE SWALLOW EVALUATION DURING VIDEO SWALLOW EVALUATION. PER ST RECOMMENDATION, PT. WILL CONTINUE NPO ORDER, AND FAMILY WILL RESUME PO INTAKE AT HOME.
[2018-03-17 16:00] VITALS: BP 121/74
[2018-03-17] MEDS ORDERED: VANCOMYCIN 1 GM in IV D5W 250 ML IV SCH (17:00)
[2018-03-17] MEDS ORDERED: BARIUM SULFATE 148 GM SUSP.RECON PO ONE (18:56)
[2018-03-17] MEDS ORDERED: BARIUM SULFATE 240 ML ORAL.SUSP PO ONE (18:56)
--- NOTE | 2018-03-17 19:30 | NUR ---
MS/RN OPENING NOTES PT RECEIVED WITH SON AT BEDSIDE. AWAKE, MUMBLES WORDS. ON ROOM AIR, BREATHING EVEN AND UNLABORED. NO FACIAL GRIMACING OR SIGNS OF PAIN AT THIS TIME. JOSE PICC LINE PATENT AND INTACT RUNNING IVF ORDERED. GT FEEDING RUNNING AT 60ML/HR. SCHMITT IN PLACE AND DRAINING TO GRAVITY. BED IN LOW/LOCKED POSITION WITH CALL LIGHT IN REACH. HOB ELEVATED AND BILATERAL UPPER SIDE RAILS IN PLACE. WILL CONTINUE TO MONITOR
[2018-03-17 20:00] VITALS: BP 125/85
--- NOTE | 2018-03-17 20:14 | NUR ---
RN CLOSING NOTES PT. IS IN BED AWAKE, EYE ARE OPEN. PT. IS BREATHING UNLABORED ON ROOM AIR. NO S/S OF ACUTE DISTRESS. IV FLUIDS RUNNING AT 75 ML/HR. BED IS IN LOWEST, AND LOCKED POSITION. SCHMITT CATHETER HAD 950 CC OF CLEAR, AND YELLOW URINE REMOVED. BED IS IN LOWEST, AND LOCKED POSITION. 2 SIDE RAILS UP, AND CALL LIGHT WITHIN REACH. ALL NEEDS MET. ENDORSED REPORT TO NURSE.
[2018-03-17] MEDS: ACETAMINOPHEN 325 MG TABLET PO PRN (21:09)
--- NOTE | 2018-03-17 21:10 | NUR ---
MS/RN NOTES PT NOTED WITH INCREASED WORK OF BREATHING AND FACIAL GRIMACING. PLACED ON 2L O2 VIA NC D/T PT'S SPO2 90% ON ROOM AIR. SON/DAUGHTER AT BEDSIDE, REQUESTING TYLENOL. ADMINISTERED ORDERED. WILL MONITOR FOR EFFECTIVENESS.
[2018-03-18] MEDS: NYSTATIN/TRIAMCIN CREAM 15 GM TUBE TP SCH ×2 (02:00→16:01)
[2018-03-18] MEDS: JEVITY 1.2 CAL 1,000 ML BOTTLE GT PRN ×2 (02:03→13:42)
[2018-03-18] MEDS: CEFEPIME 1 GM in IV D5W 50 ML IV SCH ×2 (05:36→16:01)
[2018-03-18] MEDS: ACETAMINOPHEN 325 MG TABLET PO PRN ×3 (05:36→18:47)
--- NOTE | 2018-03-18 06:40 | NUR ---
MS/RN CLOSING NOTES PT WITH EYES CLOSED, RESTING COMFORTABLY IN BED. OPENS EYES SPONTANEOUSLY, MUMBLES. ON/OFF 2L O2 VIA NC, BREATHING EVEN AND UNLABORED AT THIS TIME. NO S/S OF SOB, NO FACIAL GRIMACING OR S/S OF PAIN. IN NO ACUTE DISTRESS. JOSE PICC RUNNING IVF ORDERED. WOUND CARE PROVIDED ORDERED. TURNED/REPOSITIONED Q2H, HEELS OFFLOADED. GT FEEDING RUNNING JEVITY AT 60ML/HR, NO RESIDUALS NOTED. SCHMITT IN PLACE AND DRAINING TO GRAVITY. NO SIGNIFICANT CHANGES OVERNIGHT. KEPT PT COMFORTABLE DURING SHIFT. BED REMAINS IN LOW/LOCKED POSITION WITH CALL LIGHT IN REACH, SIDE RAILS UP X3 AND HOB ELEVATED FOR ASPIRATION PRECAUTIONS. WILL ENDORSE TO DAY SHIFT RN FAUZIA.
[2018-03-18 07:05] LABS: CALCIUM, SERUM 9.4 mg/dL (8.5-10.1); CARBON DIOXIDE 28 mmol/L (21-32); CHLORIDE 105 mmol/L (98-107); CREATININE 1.4 mg/dL (0.6-1.3); GLUCOSE 126 mg/dL (74-106); POTASSIUM 4.7 mmol/L (3.5-5.1); SODIUM SERUM 140 mmol/L (136-145); UREA NITROGEN, BLOOD 49 mg/dL (7-18)
--- NOTE | 2018-03-18 07:30 | NUR ---
MS RN OPENING NOTE RECEIVED PT SLEEPING IN BED. PT IS NON-VERBAL WITH EYES THAT OPEN SPONTANEOUSLY TO TACTILE STIMULI AND WITH OCCASIONAL MUMBLES. NO ACUTE DISTRESS NOTED AT THIS TIME, BREATHING IS EVEN AND UNLABORED ON 2L NC. NO S/S OF FACIAL GRIMACING, GUARDING, MOANING OR PAIN. R UPPER ARM PICC LINE IS INFUSING ORDERED WITHOUT REDNESS OR SWELLING. SCHMITT CATHETER NOTED TO BE DRAINING CLEAR, YELLOW URINE. TUBE FEEDING NOTED TO BE RUNNING ORDERED WITH LESS THAN 5ML OF RESIDUALS AT THIS TIME. ASPIRATION PRECAUTIONS AND NPO STATUS MAINTAINED. ALL NEEDS ATTENDED TO. BED IS LOCKED AND IN LOWEST POSITION, SIDE RAILS UP X3, BED ALARM ON, CALL LIGHT AND POSSESSIONS WITHIN REACH.
[2018-03-18 08:00] VITALS: BP 138/69
[2018-03-18] MEDS: CARBIDOPA/LEVODOPA 25/100 MG 1 UDTAB PO SCH ×2 (08:27→16:01)
[2018-03-18] MEDS: PANTOPRAZOLE 40 MG VIAL IV SCH (08:27)
[2018-03-18] MEDS: CALCIUM ACETATE 667 MG TABLET PO SCH ×3 (08:27→17:21)
[2018-03-18] MEDS: DAKINS QUARTER STRENGTH (0.125%) 480 ML BOTTLE TOP SCH (08:28)
[2018-03-18] MEDS: CADEXOMER IODINE 40 GM TUBE TP SCH (08:28)
[2018-03-18] MEDS: HEPARIN SODIUM, PORCINE 5000 UNITS/1 ML VIAL SQ SCH ×2 (08:31→21:41)
--- NOTE | 2018-03-18 10:00 | NUR ---
MS RN NOTE PER DR. TOM, SHE SPOKE WITH ID AND FINAL WOUND CX NEED TO COME BACK PRIOR TO D/C. PT NOT CLEARED FOR D/C YET. PER DR. TOM SHE SPOKE WITH ANASTASIA OVER THE PHONE WHO IS AGREEABLE TO PLAN OF CARE TODAY.
[2018-03-18 10:15] LABS: BASOPHILS # (AUTO) 0.1 /CMM (0.0-0.2); BASOPHILS % (AUTO) 0.6 % (0.0-2.0); EOSINOPHILS % (AUTO) 2.9 % (0.0-6.0); HEMATOCRIT 22 % (33-45); HEMOGLOBIN 7.1 g/dL (11.5-14.8); LYMPHOCYTES # (AUTO) 0.9 /CMM (0.8-4.8); LYMPHOCYTES % (AUTO) 9.6 % (20.0-44.0); MEAN CORPUSCULAR HGB CONC 32 g/dl (31.0-36.0); MEAN CORPUSCULAR VOLUME 86 fL (82-100); MONOCYTES # (AUTO) 0.7 /CMM (0.1-1.30); MONOCYTES % (AUTO) 6.7 % (2.0-12.0); NEUTROPHILS # (AUTO) 7.9 /CMM (1.8-8.9); NEUTROPHILS % (AUTO) 80.2 % (43.0-81.0); PLATELET COUNT (AUTO) 400 /CMM (150-450); RED BLOOD CELL COUNT(AUTO) 2.58 MIL/uL (4.0-5.2); WHITE BLOOD COUNT (AUTO) 9.8 K/uL (4.3-11.0)
[2018-03-18] MEDS: IV NS 0.9% 1,000 ML IV PRN (11:27)
[2018-03-18 16:00] VITALS: BP 109/59
--- NOTE | 2018-03-18 18:36 | NUR ---
MS RN NOTE PT SLEEPING IN BED. PT IS NON-VERBAL WITH EYES THAT OPEN SPONTANEOUSLY TO TACTILE STIMULI AND WITH OCCASIONAL MUMBLES. NO ACUTE DISTRESS NOTED AT THIS TIME, BREATHING IS EVEN AND UNLABORED ON ROOM AIR. NO S/S OF FACIAL GRIMACING, GUARDING, MOANING OR PAIN. PT RECEIVED ACETAMINOPHEN 650MG AT 1224 FOR COMFORT AND PAIN CONTROL. R UPPER ARM PICC LINE IS INFUSING ORDERED WITHOUT REDNESS OR SWELLING, DRESSING IS, CLEAN, DRY AND INTACT. SCHMITT CATHETER NOTED TO BE DRAINING CLEAR, YELLOW URINE. TUBE FEEDING NOTED TO BE RUNNING ORDERED WITH LESS THAN 5ML OF RESIDUALS FOR THE DURATION OF THE SHIFT. ASPIRATION PRECAUTIONS AND NPO STATUS MAINTAINED. ADLS PROVIDED AND WOUND CARE PROVIDED ORDERED. PT ASSISTED TO TURN AND REPOSITION Q2H FOR THE DURATION OF THE SHIFT. ALL NEEDS ATTENDED TO. BED IS LOCKED AND IN LOWEST POSITION, SIDE RAILS UP X3, BED ALARM ON, CALL LIGHT AND POSSESSIONS WITHIN REACH. WILL ENDORSE TO TUBE ROOM CASHIER NURSE FOR CONTINUITY OF CARE.
--- NOTE | 2018-03-18 19:29 | NUR ---
MS MARIELY INITIAL NOTES RECEIVED REPORT FROM AM NURSE WHILE DOING OUR ROUNDS, SEEN THE PT IN BED ON SEMI FOWLERS POSITION WITH SIDE RAILS X3 UP ON [employer] MATTRESS, WITH IVF NS AT 75ML/HR INFUSING ON HER RIGHT UPPER ARM PICC LINE INFUSING WELL. SHE ALSO ON G-TUBE FEEDING JEVITY AT 60ML/HR TOLERATED WELL NO ASPIRATION PRECAUTION NOTED, PATENT AND 1ML RESIDUAL NOTED. SKIN WARM AND DRY TO TOUCH. SCHMITT TO GRAVITY. KEPT HER WARM AND COMFORTABLE AT ALL TIMES. WILL CONTINUE MONITORING.
[2018-03-18 20:00] VITALS: BP 112/68
--- NOTE | 2018-03-18 20:00 | NUR ---
MS MARIELY NOTES' SPONGE BATH RENDERED AND WOUND CARE ALSO DONE ORDERED. G-TUBE TOLERATED WELL. AND IVF WELL. NO ASPIRATION PRECAUTION AND DISCOMFORT NOTED WHILE DOING WOUND CARE TX. KEPT HER WARM AND COMFORTABLE AT ALL TIMES. WILL CONTINUE MONITORING. DAUGHTER AT THE BEDSIDE.
[2018-03-19] VITALS (8 sets, daily range): BP systolic 89–105; BP diastolic 46–61
--- NOTE | 2018-03-19 | NUR ---
MS DIRECTOR REACTOR PROJECTS NOTES PT RESTING WITH EYES CLOSED BUT AROUSE TO TOUCH NOT IN ANY ACUTE DISTRESS NOTED. G-TUBE TOLERATED WELL NO ASPIRATION NOTED. REPOSITION PT FOR COMFORT. WILL CONTINUE TO MONITOR.
--- NOTE | 2018-03-19 00:28 | NUR ---
MARIELY NOTES BLOOD SUGAR CHECKED 85, NO SIGNS OF HYPO GLYCEMIA NOTED. IVF NS AT 100ML/HR INFUSING AT THIS TIME. KEPT HIM WARM AND COMFORTABLE AT ALL TIMES. DAUGHTER AT THE BEDSIDE. WILL CONTINUE MONITORING. PLACE CALL LIGHT AT REACH. Addendum: 03/19/18 at 0030 by ROVERTO MEZA LVN DISREGARD THIS NOTES BELONGS TO OTHER PATIENT.
[2018-03-19] MEDS: IV NS 0.9% 1,000 ML IV PRN (02:50)
[2018-03-19] MEDS: NYSTATIN/TRIAMCIN CREAM 15 GM TUBE TP SCH ×2 (02:50→14:17)
[2018-03-19] MEDS: ACETAMINOPHEN 325 MG TABLET PO PRN ×3 (02:50→20:28)
[2018-03-19] MEDS: CEFEPIME 1 GM in IV D5W 50 ML IV SCH (05:23)
--- NOTE | 2018-03-19 05:58 | NUR ---
MS MARIELY NOTES PT REMAINS STABLE , SPONGE BATH RENDERED WITH WOUND CARE TREATMENT ALSO DONE. REPOSITION FOR COMFORT. NO SIGNS OF ANY DISCOMFORT NOTED. G-TUBE TOLERATED WELL AND IVF STILL INFUSING. KEPT HER WARM AND COMFORTABLE AT ALL TIMES. PLACE CALL LIGHT AT REACH. WILL CONTINUE MONITORING.
[2018-03-19] MEDS: JEVITY 1.2 CAL 1,000 ML BOTTLE GT PRN (06:12)
[2018-03-19 07:13] LABS: BASOPHILS # (AUTO) 0.1 /CMM (0.0-0.2); BASOPHILS % (AUTO) 0.5 % (0.0-2.0); EOSINOPHILS % (AUTO) 3.5 % (0.0-6.0); HEMATOCRIT 22 % (33-45); LYMPHOCYTES # (AUTO) 1.3 /CMM (0.8-4.8); LYMPHOCYTES % (AUTO) 11.3 % (20.0-44.0); MEAN CORPUSCULAR HGB CONC 32 g/dl (31.0-36.0); MEAN CORPUSCULAR VOLUME 86 fL (82-100); MONOCYTES # (AUTO) 0.8 /CMM (0.1-1.30); MONOCYTES % (AUTO) 6.8 % (2.0-12.0); NEUTROPHILS # (AUTO) 8.7 /CMM (1.8-8.9); NEUTROPHILS % (AUTO) 77.9 % (43.0-81.0); PLATELET COUNT (AUTO) 386 /CMM (150-450); RED BLOOD CELL COUNT(AUTO) 2.54 MIL/uL (4.0-5.2); WHITE BLOOD COUNT (AUTO) 11.1 K/uL (4.3-11.0)
[2018-03-19 07:23] LABS: HEMOGLOBIN 6.9 g/dL (11.5-14.8)
[2018-03-19 07:28] LABS: CALCIUM, SERUM 9.1 mg/dL (8.5-10.1); CARBON DIOXIDE 25 mmol/L (21-32); CHLORIDE 104 mmol/L (98-107); CREATININE 1.5 mg/dL (0.6-1.3); GLUCOSE 106 mg/dL (74-106); MAGNESIUM 2.1 mg/dL (1.8-2.4); PHOSPHORUS 3.3 mg/dL (2.5-4.9); POTASSIUM 4.6 mmol/L (3.5-5.1); SODIUM SERUM 136 mmol/L (136-145); UREA NITROGEN, BLOOD 47 mg/dL (7-18)
--- NOTE | 2018-03-19 07:57 | NUR ---
MS DIRECTOR BUSINESS CLOSING NOTES PT SLEEPING COMFORTABLY IN BED WITHOUT ANY ACUTE DISTRESS NOTED. STILL WITH G-TUBE FEEDING NO ASPIRATION NOTED. IVF STILL INFUSING. ALL DUE MEDS GIVEN AND ALL NEEDS MET STABLE MAIRTA THE NIGHT. KEPT HER WARM AND COMFORTABLE AT ALL TIMES. GOT CRITICAL LAB RESULT H/H 6. .ENDORSE TO AM NURSE ABREU FOR CONTINUITY OF CARE.
--- NOTE | 2018-03-19 07:59 | NUR ---
MS RN OPENING NOTE RECEIVED PATIENT IN BED. SLEEPING, AROUSED WITH PHYSICAL STIMULI, RESPONDS WITH EYE OPENING. NON-VERBAL. ON ROOM AIR, TOLERATING WELL. IN NO APPARENT DISTRESS OR DISCOMFORT AT THIS TIME. RESPIRATIONS EVEN AND UNLABORED. SCHMITT CATHETER IN PLACE, DRAINING CLEAR YELLOW URINE. RIGHT UPPER ARM PICC LINE WITH FLUIDS RUNNING AT 75 ML/HR. PATIENT WITH G-TUBE IN PLACE, WITH JEVITY RUNNING AT 60ML/ HR, TOLERATING FEEDING WELL. PATIENT KEPT CLEAN AND COMFORTABLE. ALL NEEDS ATTENDED, SAFETY MEASURES IN PLACE, BED IN LOW LOCKED POSITION, SIDE RAILS UP X2, CALL LIGHT WITHIN EASY REACH. WILL CONTINUE TO MONITOR.
[2018-03-19] MEDS: PANTOPRAZOLE 40 MG VIAL IV SCH (08:20)
[2018-03-19] MEDS: CALCIUM ACETATE 667 MG TABLET PO SCH ×3 (08:20→17:13)
[2018-03-19] MEDS: CARBIDOPA/LEVODOPA 25/100 MG 1 UDTAB PO SCH ×2 (08:20→16:19)
[2018-03-19] MEDS: DAKINS QUARTER STRENGTH (0.125%) 480 ML BOTTLE TOP SCH (08:25)
[2018-03-19] MEDS: CADEXOMER IODINE 40 GM TUBE TP SCH (08:26)
[2018-03-19 08:59] LABS: BAND % (MANUAL) 3 % (0.0-5.0); EOSINOPHILS % (MANUAL) 1 % (0-4); LYMPHOCYTES % (MANUAL) 13 % (16-48); MONOCYTES % (MANUAL) 9 % (0-11.0); NEUTROPHILS % (MANUAL) 74 (42-76)
[2018-03-19] MEDS: HEPARIN SODIUM, PORCINE 5000 UNITS/1 ML VIAL SQ SCH ×2 (09:00→22:48)
--- NOTE | 2018-03-19 09:32 | NUR ---
HEMOGLOBIN OF 6.9. PER DR. TOM HOLD HEPARIN AT THIS TIME. MONITOR H/H, TRANSFUSE 1 UNIT OF PRBC.
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
[2018-03-19] MEDS: MEROPENEM 1 G in IV NS 0.9% 100 ML IV SCH ×2 (12:31→20:36)
--- NOTE | 2018-03-19 16:59 | NUR ---
STARTED 1 UNIT OF PRBC TRANSFUSION. PATIENT IS STABLE, VITAL SIGNS STABLE AT THIS TIME. WILL CONTINUE TO MONITOR.
--- NOTE | 2018-03-19 17:30 | NUR ---
PATIENT IS STABLE. BLOOD TRANSFUSION IN PROCESS, NO APPARENT DISTRESS OR DISCOMFORT, VITAL SIGNS STABLE. NO SIGNS OR SYMPTOMS OF TRANSFUSION REACTION NOTED AT THIS TIME. WILL CONTINUE TO MONITOR.
--- NOTE | 2018-03-19 19:00 | NUR ---
MS RN CLOSING NOTE PATIENT IN BED. SLEEPING, AROUSED WITH PHYSICAL STIMULI, RESPONDS WITH EYE OPENING. NON-VERBAL. ON 2L O2 VIA NC, TOLERATING WELL. IN NO APPARENT DISTRESS OR DISCOMFORT AT THIS TIME. RESPIRATIONS EVEN AND UNLABORED. SCHMITT CATHETER IN PLACE, DRAINING CLEAR YELLOW URINE. RIGHT UPPER ARM PICC LINE, PATENT AND INTACT. PATIENT IS CURRENTLY RECEIVING BLOOD TRANSFUSION. VITAL SIGNS STABLE AT BASELINE. NO SIGNS OR SYMPTOMS OF TRANSFUSION REACTION NOTED OR OBSERVED. PATIENT WITH G-TUBE IN PLACE, WITH JEVITY RUNNING AT 60ML/ HR, TOLERATING FEEDING WELL. PATIENT KEPT CLEAN AND COMFORTABLE. ALL NEEDS ATTENDED, ORDERS RENDERED, TURNED AND REPOSITIONED PER PROTOCOL, SAFETY MEASURES IN PLACE, BED IN LOW LOCKED POSITION, SIDE RAILS UP X2, CALL LIGHT WITHIN EASY REACH. WILL ENDORSE TO PM NURSE FOR FAUZIA.
--- NOTE | 2018-03-19 19:38 | NUR ---
MS/RN OPENING NOTES RECEIVED PATIENT IN BED, CAN OPEN EYES , WITH RESPIRATORY RATE OVER 24, OXYGEN RATE ON 3L AT 97%,B/P 105/61, PULSE 97, STARTED BLOOD TRANSFUSION AT 1700, CAN OPEN EYES, SKIN WARM TO TOUCH. RREQUIRE FREQUENT MONITORING , SKIN ISSUES WITH SACRAL WOUND , ON AIR LOSS WILL MONITOR.
[2018-03-19] MEDS: LINEZOLID 600 MG TABLET PO SCH (22:15)
[2018-03-19 22:20] LABS: BASOPHILS # (AUTO) 0.1 /CMM (0.0-0.2); BASOPHILS % (AUTO) 0.6 % (0.0-2.0); EOSINOPHILS % (AUTO) 3.7 % (0.0-6.0); HEMATOCRIT 27 % (33-45); HEMOGLOBIN 8.8 g/dL (11.5-14.8); LYMPHOCYTES # (AUTO) 1.2 /CMM (0.8-4.8); LYMPHOCYTES % (AUTO) 11.5 % (20.0-44.0); MEAN CORPUSCULAR HGB CONC 32 g/dl (31.0-36.0); MEAN CORPUSCULAR VOLUME 87 fL (82-100); MONOCYTES # (AUTO) 0.8 /CMM (0.1-1.30); MONOCYTES % (AUTO) 7.5 % (2.0-12.0); NEUTROPHILS % (AUTO) 76.7 % (43.0-81.0); PLATELET COUNT (AUTO) 401 /CMM (150-450); RED BLOOD CELL COUNT(AUTO) 3.15 MIL/uL (4.0-5.2); WHITE BLOOD COUNT (AUTO) 10.4 K/uL (4.3-11.0)
[2018-03-20] MEDS: NYSTATIN/TRIAMCIN CREAM 15 GM TUBE TP SCH ×2 (02:10→13:36)
[2018-03-20] MEDS: JEVITY 1.2 CAL 1,000 ML BOTTLE GT PRN (02:10)
[2018-03-20] MEDS: MEROPENEM 1 G in IV NS 0.9% 100 ML IV SCH ×3 (04:16→20:33)
[2018-03-20 06:09] LABS: BASOPHILS # (AUTO) 0.1 /CMM (0.0-0.2); BASOPHILS % (AUTO) 0.4 % (0.0-2.0); EOSINOPHILS % (AUTO) 2.8 % (0.0-6.0); HEMATOCRIT 28 % (33-45); HEMOGLOBIN 9.1 g/dL (11.5-14.8); LYMPHOCYTES # (AUTO) 1.2 /CMM (0.8-4.8); LYMPHOCYTES % (AUTO) 9.5 % (20.0-44.0); MEAN CORPUSCULAR HGB CONC 33 g/dl (31.0-36.0); MEAN CORPUSCULAR VOLUME 86 fL (82-100); MONOCYTES # (AUTO) 0.8 /CMM (0.1-1.30); MONOCYTES % (AUTO) 6.3 % (2.0-12.0); NEUTROPHILS # (AUTO) 10.1 /CMM (1.8-8.9); PLATELET COUNT (AUTO) 422 /CMM (150-450); WHITE BLOOD COUNT (AUTO) 12.5 K/uL (4.3-11.0)
[2018-03-20 06:25] LABS: CALCIUM, SERUM 9.6 mg/dL (8.5-10.1); CARBON DIOXIDE 25 mmol/L (21-32); CHLORIDE 106 mmol/L (98-107); CREATININE 1.5 mg/dL (0.6-1.3); GLUCOSE 123 mg/dL (74-106); MAGNESIUM 2.1 mg/dL (1.8-2.4); PHOSPHORUS 3.7 mg/dL (2.5-4.9); POTASSIUM 4.9 mmol/L (3.5-5.1); SODIUM SERUM 140 mmol/L (136-145); UREA NITROGEN, BLOOD 50 mg/dL (7-18)
--- NOTE | 2018-03-20 06:28 | NUR ---
320-2 PATIETN RESPIRATIONS EVEN AND UNLABORED, REQUIRE FREQUENT REPOSITION, WOUND TREATMENT, S/P BLOOD TRANSFUSION, CALL LIGHTS WITHIN REACH, BED LOCKED, WILL MONITOR.
[2018-03-20 07:30] LABS: BAND % (MANUAL) 3 % (0.0-5.0); EOSINOPHILS % (MANUAL) 4 % (0-4); LYMPHOCYTES % (MANUAL) 10 % (16-48); MONOCYTES % (MANUAL) 8 % (0-11.0); NEUTROPHILS % (MANUAL) 75 (42-76)
--- NOTE | 2018-03-20 07:40 | NUR ---
MS RN OPENING NOTE RECEIVED PATIENT IN BED. SLEEPING, AROUSED WITH PHYSICAL STIMULI, RESPONDS WITH EYE OPENING. NON-VERBAL. ON 2L O2 VIA NC, TOLERATING WELL. IN NO APPARENT DISTRESS OR DISCOMFORT AT THIS TIME. RESPIRATIONS EVEN AND UNLABORED. SCHMITT CATHETER IN PLACE, DRAINING CLEAR YELLOW URINE. RIGHT UPPER ARM PICC LINE, SL LOCK AT THIS TIME PER FAMILY REQUEST. PATIENT WITH G-TUBE IN PLACE, WITH JEVITY RUNNING AT 60ML/ HR, TOLERATING FEEDING WELL. PATIENT KEPT CLEAN AND COMFORTABLE. ALL NEEDS ATTENDED, SAFETY MEASURES IN PLACE, BED IN LOW LOCKED POSITION, SIDE RAILS UP X2, CALL LIGHT WITHIN EASY REACH. WILL CONTINUE TO MONITOR.
[2018-03-20 08:00] VITALS: BP 120/62
[2018-03-20] MEDS: CARBIDOPA/LEVODOPA 25/100 MG 1 UDTAB PO SCH ×2 (08:25→17:30)
[2018-03-20] MEDS: CALCIUM ACETATE 667 MG TABLET PO SCH ×3 (08:25→17:30)
[2018-03-20] MEDS: PANTOPRAZOLE 40 MG VIAL IV SCH (08:25)
[2018-03-20] MEDS: HEPARIN SODIUM, PORCINE 5000 UNITS/1 ML VIAL SQ SCH ×2 (08:26→20:32)
[2018-03-20] MEDS: LINEZOLID 600 MG TABLET PO SCH (08:31)
[2018-03-20] MEDS: DAKINS QUARTER STRENGTH (0.125%) 480 ML BOTTLE TOP SCH (08:42)
[2018-03-20] MEDS: CADEXOMER IODINE 40 GM TUBE TP SCH (08:43)
[2018-03-20] MEDS: LORATADINE 10 MG TABLET PO SCH (10:35)
--- NOTE | 2018-03-20 10:40 | NUR ---
OBSERVED RED RASH ON PATIENT'S CHEST AND LEFT UPPER ARM. REPORTED TO DR. TOM. SHE EXAMINED THE PATIENT WELL AND ORDERED CLARITIN FOR POSSIBLE ALLERGIC REACTION TO ANTIBIOTICS. ADMINISTERED THE MEDICATION AT THIS TIME. WILL CONTINUE TO MONITOR.
[2018-03-20] MEDS: ACETAMINOPHEN 325 MG TABLET PO PRN ×2 (13:35→20:31)
[2018-03-20 16:00] VITALS: BP 109/64
--- NOTE | 2018-03-20 19:38 | NUR ---
MS RN CLOSING NOTE PATIENT IN BED. SLEEPING, AROUSED WITH PHYSICAL STIMULI, RESPONDS WITH EYE OPENING. NON-VERBAL. ON 2L O2 VIA NC, TOLERATING WELL. IN NO APPARENT DISTRESS OR DISCOMFORT AT THIS TIME. RESPIRATIONS EVEN AND UNLABORED. SCHMITT CATHETER IN PLACE, DRAINING CLEAR YELLOW URINE. RIGHT UPPER ARM PICC LINE, PATENT AND INTACT, SL PER PATIENT'S DAUGHTER REQUEST. PATIENT WITH G-TUBE IN PLACE, WITH JEVITY RUNNING AT 60ML/ HR, TOLERATING FEEDING WELL. PATIENT KEPT CLEAN AND COMFORTABLE. ALL NEEDS ATTENDED, ORDERS RENDERED, TURNED AND REPOSITIONED PER PROTOCOL, SAFETY MEASURES IN PLACE, BED IN LOW LOCKED POSITION, SIDE RAILS UP X2, CALL LIGHT WITHIN EASY REACH. WILL ENDORSE TO PM NURSE FOR FAUZIA.
[2018-03-20 20:00] VITALS: BP 116/73
--- NOTE | 2018-03-20 20:20 | NUR ---
RN MS OPENING NOTES RECEIVED PATIENT IN BED. SLEEPING, AROUSED TO TACTILE STIMULI, NON-VERBAL. ON 2L O2 VIA NC, BREATHING EVEN AND UNLABORED. FACIAL GRIMACING NOTED, WILL ADMINISTER PAIN MED. SCHMITT CATHETER IN PLACE, DRAINING CLEAR YELLOW URINE. RIGHT UPPER ARM PICC LINE IN PLACE, PATENT AND INTACT. G-TUBE IN PLACE, WITH JEVITY @ 60ML/ HR, TOLERATING FEEDING WELL. PATIENT KEPT CLEAN AND COMFORTABLE. ALL NEEDS ATTENDED, ORDERS RENDERED, BED IN LOW LOCKED POSITION, SIDE RAILS UP X2, CALL LIGHT WITHIN EASY REACH. WILL CONTINUE TO MONITOR .
[2018-03-21] VITALS (15 sets, daily range): BP systolic 98–145; BP diastolic 56–72
[2018-03-21] MEDS: JEVITY 1.2 CAL 1,000 ML BOTTLE GT PRN (00:35)
[2018-03-21] MEDS: NYSTATIN/TRIAMCIN CREAM 15 GM TUBE TP SCH ×2 (02:30→15:20)
[2018-03-21] MEDS: MEROPENEM 1 G in IV NS 0.9% 100 ML IV SCH ×3 (04:45→21:16)
[2018-03-21] MEDS: ACETAMINOPHEN 325 MG TABLET PO PRN ×2 (04:49→17:22)
[2018-03-21 06:12] LABS: BASOPHILS % (AUTO) 0.4 % (0.0-2.0); EOSINOPHILS % (AUTO) 2.6 % (0.0-6.0); HEMATOCRIT 29 % (33-45); HEMOGLOBIN 9.5 g/dL (11.5-14.8); LYMPHOCYTES # (AUTO) 1.1 /CMM (0.8-4.8); LYMPHOCYTES % (AUTO) 9.4 % (20.0-44.0); MEAN CORPUSCULAR HGB CONC 33 g/dl (31.0-36.0); MEAN CORPUSCULAR VOLUME 86 fL (82-100); MONOCYTES # (AUTO) 0.8 /CMM (0.1-1.30); MONOCYTES % (AUTO) 6.9 % (2.0-12.0); NEUTROPHILS # (AUTO) 9.9 /CMM (1.8-8.9); NEUTROPHILS % (AUTO) 80.7 % (43.0-81.0); PLATELET COUNT (AUTO) 400 /CMM (150-450); WHITE BLOOD COUNT (AUTO) 12.3 K/uL (4.3-11.0)
--- NOTE | 2018-03-21 06:30 | NUR ---
RN MS CLOSING NOTES PATIENT REMAINS IN BED. SLEEPING, AROUSED TO TACTILE STIMULI, NON-VERBAL. ON 2L O2 VIA NC, BREATHING EVEN AND UNLABORED. IN NO APPARENT PAIN OR DISCOMFORT AT THIS TIME. SCHMITT CATHETER IN PLACE, DRAINING CLEAR YELLOW URINE. RIGHT UPPER ARM PICC LINE IN PLACE, PATENT AND INTACT. G-TUBE IN PLACE, WITH JEVITY @ 60ML/ HR, TOLERATING FEEDING WELL. PATIENT KEPT CLEAN AND COMFORTABLE. ALL NEEDS ATTENDED, ORDERS RENDERED, BED IN LOW LOCKED POSITION, SIDE RAILS UP X2, CALL LIGHT WITHIN EASY REACH. WILL ENDORSE TO DAY NURSE FOR FAUZIA
[2018-03-21 06:32] LABS: CALCIUM, SERUM 9.7 mg/dL (8.5-10.1); CARBON DIOXIDE 27 mmol/L (21-32); CHLORIDE 105 mmol/L (98-107); CREATININE 1.8 mg/dL (0.6-1.3); GLUCOSE 130 mg/dL (74-106); MAGNESIUM 2.1 mg/dL (1.8-2.4); POTASSIUM 5.3 mmol/L (3.5-5.1); SODIUM SERUM 139 mmol/L (136-145); UREA NITROGEN, BLOOD 53 mg/dL (7-18)
[2018-03-21 07:04] LABS: BAND % (MANUAL) 1 % (0.0-5.0); EOSINOPHILS % (MANUAL) 2 % (0-4); LYMPHOCYTES % (MANUAL) 13 % (16-48); MONOCYTES % (MANUAL) 2 % (0-11.0); NEUTROPHILS % (MANUAL) 83 (42-76)
[2018-03-21 07:57] LABS: ABG BASE EXCESS 0.6 mmol/L; ABG PCO2 39.2 mmHg (35.0-45.0); ABG PH 7.422 (7.350-7.450); AaDO2 108.3 mmHg; COHb 0.4 % (0.5-1.5); MetHb 0.5 % (0.0-1.5); O2Hb 93.2 % (94.0-97.0); SITE, ABG Left Radial; VENT MODE, BG NASAL CANNULA
--- NOTE | 2018-03-21 08:42 | NUR ---
ms rn received patient, tachypnic,gargling, sob, hard time breathing, g tube residual 240ml, stopped feeding and iv right away, repositioned for comfort, md notified . dr. bazzi put orders and carried out.will monitor patient.
--- NOTE | 2018-03-21 08:55 | NUR ---
ms rn patient vomited again, suctioned w/ 230ml brownish colored output, dr valencia notified.
[2018-03-21] MEDS: PANTOPRAZOLE 40 MG VIAL IV SCH (09:30)
--- NOTE | 2018-03-21 09:30 | NUR ---
ms rn was seen by dr. rhoades w/ order to transfer to icu, spoke w/ daugher, very upset, explained to her what happened. nurse wound care at bedside.
[2018-03-21] MEDS: LORATADINE 10 MG TABLET PO SCH (09:59)
[2018-03-21] MEDS: CARBIDOPA/LEVODOPA 25/100 MG 1 UDTAB PO SCH ×3 (09:59→17:22)
[2018-03-21] MEDS: CALCIUM ACETATE 667 MG TABLET PO SCH ×3 (09:59→17:22)
--- NOTE | 2018-03-21 10:00 | NUR ---
ms rn went down to icu, all needs attended.
[2018-03-21] MEDS: HEPARIN SODIUM, PORCINE 5000 UNITS/1 ML VIAL SQ SCH ×2 (10:02→21:18)
--- NOTE | 2018-03-21 10:30 | NUR ---
ENTRY LEVEL BUSINESS ANALYST NOTES: Rec'd pt via bed accompanied by RN. Pt admitted to room 253, dtr & caregiver came. Routine assessment done. Pt is awake but lethargic. On NC at 4lpm, sating at 98% but noted crackles upon auscultation. Placed on telemonitor, ST 120's HR. Has JOSE PICC line 2 lumen flushing well w/ no s/sx of infection/infiltration noted. Has GT clamped at this time d/t episode of vomiting on the floor. Has FC draining to adequate yellowish UOP. KCI mattress in place. Safety precaution in place. Bed in lowest & locked pos. Call light w/in reach. 1130H RT suctioned pt but had another episode of vomiting. Zofran just given by 3W. Will give scheduled Reglan.
[2018-03-21] MEDS: METOCLOPRAMIDE HCL 10 MG/2 ML VIAL IV SCH ×3 (11:11→23:28)
[2018-03-21] MEDS: IV NS 0.9% 1,000 ML IV PRN (11:13)
[2018-03-21] MEDS: ALBUTEROL HALF STRENGTH 1.25 MG/3 ML VIAL.NEB NEB SCH ×4 (11:27→22:52)
[2018-03-21] MEDS: IPRATROPIUM NEB FS 0.5 MG/2.5 ML AMPUL.NEB NEB SCH ×5 (11:27→23:17)
[2018-03-21] MEDS: CADEXOMER IODINE 40 GM TUBE TP SCH (13:19)
[2018-03-21] MEDS: DAKINS QUARTER STRENGTH (0.125%) 480 ML BOTTLE TOP SCH (13:19)
--- NOTE | 2018-03-21 13:35 | NUR ---
Dr. Temple updated re HR at 130's BP 123/56 w/ adequate UOP. No fever. Per MD johnson w/ NS x 75 cc/hr. Caregiver Premg informed to update dtr.
[2018-03-21] MEDS ORDERED: IV NS 0.9% 1,000 ML IV PRN (14:00)
--- NOTE | 2018-03-21 14:51 | NUR ---
Pt's requested to call him or dtr if there's a plan to transfer pt out of ICU because he wishes the pt to be DC to home instead of being transferred to any other floor. This was communicated to the CN & Dr. Temple.
--- NOTE | 2018-03-21 17:00 | NUR ---
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
--- NOTE | 2018-03-21 17:30 | NUR ---
Pt seen & examined by INGA Pérez. ONCOLOGY REGISTRAR was able to talk to the dtr at bedside.
--- NOTE | 2018-03-21 17:44 | NUR ---
Dtr requesting to change pt's Sinemet 25/100 mg from 1 tab BID to 1/2 tab BID as her usual dose. Dr. Galeano made aware & ordered to change it. Dtr made aware.
--- NOTE | 2018-03-21 18:33 | NUR ---
RN CLOSING NOTES: Pt resting on her bed w/ HOB @ >40` as ordered. Pt tolerating NC at 4lpm but w/ still some WOB, sating at 98%. Deep suctioning done PRN per RT. Remains ST on telemonitor 130's bpm. Latest temp at 98. JOSE PICC line kept patent & intact w/ no s/sx of infection/infiltration noted w/ NS x 75 cc/hr infusing well. GT clamped w/in shift, meds given w/ strict aspiration precaution. No further N/V noted. FC kept patent & intact draining to adequate UOP. Dtr updated at all times regarding pt status & POC. Observed contact isolation. Safety precaution kept in place at all times. Bed in locked & lowest pos. Call light w/in reach. Will endorse to PM RN for FAUZIA.
--- NOTE | 2018-03-21 19:00 | NUR ---
DATA STORAGE SPECIALIST NOTE PATIENT RECEIVED RESTING WITH HOB ELEVATED, NON VERBAL, ON 4L O2 VIA NC, NO S/SX OF RESPIRATORY OR CARDIAC DISTRESS NOTED, TELE ST, SCHMITT CATHETER DRAINING TO GRAVITY YELLOW URINE, G TUBE CLAMPED, USED FOR INTERMITTENT MEDICATION ADMINISTRATION, WILL CONTINUE TO MONITOR FOR ANY VOMITING, SUCTION BY PT PRN, JOSE PICC LINE PATENT FLUSHING WELL WITH NS AT 75 ML/HR. CONTACT ISOLATION OBSERVED, BLE EDEMA, SKIN KEPT CLEAN AND DRY. BED IN LOW LOCKED POSITION, CALL LIGHT WITHIN REACH, WILL CONTINUE TO MONITOR FOR ANY CHANGES IN CONDITION.
[2018-03-21] MEDS: AMPICILLIN 1 GM in IV NS 0.9% 50 ML IV SCH (19:58)
[2018-03-22] VITALS (21 sets, daily range): BP systolic 98–163; BP diastolic 55–81
[2018-03-22] MEDS: AMPICILLIN 1 GM in IV NS 0.9% 50 ML IV SCH ×4 (02:49→23:29)
[2018-03-22] MEDS: NYSTATIN/TRIAMCIN CREAM 15 GM TUBE TP SCH ×2 (02:55→13:57)
[2018-03-22] MEDS: IPRATROPIUM NEB FS 0.5 MG/2.5 ML AMPUL.NEB NEB SCH ×9 (02:58→23:02)
[2018-03-22] MEDS: ALBUTEROL HALF STRENGTH 1.25 MG/3 ML VIAL.NEB NEB SCH ×6 (02:58→23:02)
[2018-03-22 04:51] LABS: BASOPHILS # (AUTO) 0.1 /CMM (0.0-0.2); BASOPHILS % (AUTO) 0.8 % (0.0-2.0); EOSINOPHILS % (AUTO) 0.7 % (0.0-6.0); HEMATOCRIT 29 % (33-45); HEMOGLOBIN 9.2 g/dL (11.5-14.8); LYMPHOCYTES # (AUTO) 1.8 /CMM (0.8-4.8); LYMPHOCYTES % (AUTO) 9.6 % (20.0-44.0); MEAN CORPUSCULAR HGB CONC 32 g/dl (31.0-36.0); MEAN CORPUSCULAR VOLUME 88 fL (82-100); MONOCYTES # (AUTO) 1.2 /CMM (0.1-1.30); MONOCYTES % (AUTO) 6.4 % (2.0-12.0); NEUTROPHILS # (AUTO) 15.1 /CMM (1.8-8.9); NEUTROPHILS % (AUTO) 82.5 % (43.0-81.0); PLATELET COUNT (AUTO) 442 /CMM (150-450); RED BLOOD CELL COUNT(AUTO) 3.27 MIL/uL (4.0-5.2); WHITE BLOOD COUNT (AUTO) 18.3 K/uL (4.3-11.0)
[2018-03-22] MEDS: MEROPENEM 1 G in IV NS 0.9% 100 ML IV SCH ×3 (05:04→20:07)
[2018-03-22] MEDS: METOCLOPRAMIDE HCL 10 MG/2 ML VIAL IV SCH ×4 (05:04→23:28)
[2018-03-22 05:05] LABS: CALCIUM, SERUM 10.3 mg/dL (8.5-10.1); CARBON DIOXIDE 26 mmol/L (21-32); CHLORIDE 108 mmol/L (98-107); CREATININE 2.2 mg/dL (0.6-1.3); GLUCOSE 117 mg/dL (74-106); MAGNESIUM 2.4 mg/dL (1.8-2.4); PHOSPHORUS 5.9 mg/dL (2.5-4.9); POTASSIUM 5.8 mmol/L (3.5-5.1); SODIUM SERUM 143 mmol/L (136-145); UREA NITROGEN, BLOOD 57 mg/dL (7-18)
--- NOTE | 2018-03-22 06:19 | NUR ---
CAST IRON DIPPER NOTE PATIENT RESTING IN BED WITH HOB 40 DEGREES DEEP SUCTION BY RT THROUGHOUT SHIFT NOW LIGHT BROWN IN COLOR, THICK, MODERATE AMOUNT FOR TOTAL OF 200 ML DURING SHIFT. CONTINUES TO HAVE LABORED BREATHING AND USE OF ACCESSORY MUSCLES, TOLERATING 4L O2 VIA NC. G TUBE CONTINUES TO BE CLAMPED. NO EPISODES OF VOMITING DURING SHIFT.
--- NOTE | 2018-03-22 07:05 | NUR ---
CHEMOTHERAPIST INITIAL NOTES RECEIVED PT FROM NIGHTSHIFT RN IN STABLE. PT IS OBTUNDENT, OPENS EYES SPONTANEOUSLY, AND IS RESPONSIVE TO PAINFUL/TACTILE STIMULI. NO SOB OR ACUTE SIGNS OF DISTRESS NOTED. BREATHING IS EVEN AND UNLABORED. PT ON 3L VIA NC AND SATING WELL @98%. PT CURRENTLY SINUS TACH ON THE TELE MONITOR. SCHMITT CATHETER NOTED TO BE PATENT AND INTACT. RIGHT UPPER ARM PICC LINE NOTED TO BE PATENT AND INTACT. NO REDNESS OR SIGNS OF INFILTRATION NOTED. BLOOD RETURN NOTED FROM ONE PORT BUT NOT THE OTHER. GTUBE NOTED TO BE PATENT, INTACT, AND CLAMPED. PLACEMENT VERIFIED VIA AUSCULTATION. BED IN LOW LOCKED POSITION, SIDE RAILS UP X3, CALL LIGHT WITHIN REACH. WILL CONTINUE TO MONITOR
[2018-03-22] MEDS: HEPARIN SODIUM, PORCINE 5000 UNITS/1 ML VIAL SQ SCH ×2 (08:11→20:07)
[2018-03-22] MEDS: CARBIDOPA/LEVODOPA 25/100 MG 1 UDTAB PO SCH ×2 (08:13→16:53)
[2018-03-22] MEDS: LORATADINE 10 MG TABLET PO SCH (08:13)
[2018-03-22] MEDS: PANTOPRAZOLE 40 MG VIAL IV SCH (08:13)
[2018-03-22] MEDS: CALCIUM ACETATE 667 MG TABLET PO SCH (08:13)
[2018-03-22] MEDS: ACIDOPHILUS/BULGARICUS 1 EACH TAB.CHEW PO SCH ×3 (08:13→16:53)
[2018-03-22] MEDS: CADEXOMER IODINE 40 GM TUBE TP SCH (08:17)
[2018-03-22] MEDS: DAKINS QUARTER STRENGTH (0.125%) 480 ML BOTTLE TOP SCH (08:17)
[2018-03-22 08:24] LABS: ABG BASE EXCESS 0.1 mmol/L; ABG OXYGEN SATURATION 94.1 % (92.0-98.5); ABG PCO2 44.3 mmHg (35.0-45.0); ABG PH 7.376 (7.350-7.450); ABG PO2 74.7 mmHg (75.0-100.0); AaDO2 101.6 mmHg; COHb 0.6 % (0.5-1.5); MetHb 0.6 % (0.0-1.5); SITE, ABG Right Radial; VENT MODE, BG 3L N/C
[2018-03-22] MEDS: JEVITY 1.2 CAL 1,000 ML BOTTLE GT PRN (10:56)
[2018-03-22] MEDS ORDERED: SODIUM POLYSTYRENE SULFONATE 15 G/60 ML BOTTLE PO ONE (11:30)
[2018-03-22 13:04] LABS: CALCIUM, SERUM 10.7 mg/dL (8.5-10.1); CARBON DIOXIDE 25 mmol/L (21-32); CHLORIDE 107 mmol/L (98-107); GLUCOSE 101 mg/dL (74-106); POTASSIUM 4.6 mmol/L (3.5-5.1); SODIUM SERUM 139 mmol/L (136-145); UREA NITROGEN, BLOOD 56 mg/dL (7-18)
--- NOTE | 2018-03-22 17:40 | NUR ---
COMPUTER FORENSICS EXAMINERFORCE VARIATION EQUIPMENT TENDER NOTES PT TRANSFERRED TO [facility] ROOM 102 VIA ACLS PROTOCOL. REPORT CALLED AND GIVEN TO BEAR. VINICIUSS THROUGHOUT SHIFT. PT TOLERATED TUBE FEEDING WELL. LESS THAN 5ML OF RESIDUALS ASPIRATED. ALL BELONGINGS TAKEN WITH PT. PT DAUGHTER AT BEDSIDE.
--- NOTE | 2018-03-22 19:30 | NUR ---
RN INITIAL NOTES RECEIVED THE PATIENT AWAKE ON BED, OBTUNDED, NON-VERBAL, OPENS EYES ONLY. CURRENTLY ON 3L NASAL CANNULA, SATURATING WELL, NO S/S OF RESP DISTRESS. PT IS SINUS TACH ON THE MONITOR, HR 110'S. GTUBE TO JEVITY 1.2 FEEDING @ 20MLS/HR, NO RESIDUALS, TOLERATING WELL. SCHMITT CATH INTACT. RIGHT UPPER ARM PICC FLUSHED AND PATENT, NO S/S OF INFILTRATION/INFECTION, DRESSING CDI. BED LOW AND LOCKED, SIDERAILS UP, CALL LIGHT WITHIN REACH,B BED ALARM ON.
--- NOTE | 2018-03-22 19:36 | NUR ---
RN CLOSING NOTE PATIENT TRANSFERED FROM ICU 1800. VITALS WNL. IN BED OBTUNDED. DAUGHTER AT BEDSIDE. RIGHT UPPER PICLINE INTACT PATENT AND BLOOD RETURN PRESENT. G TUBE PATENT AND NO RESIDUAL. STARTED FEEDING AT 20CC/HR TOLERATING WELL. HOB ELEVATED 40 DEGREES AT ALL TIMES. CONTACT PRECAUTIONS IN PLACE. DO NOT TAKE BLOOD PRESSURE ON RIGHT SIDE. BED IN LOW POSITION, SAFETY MEASURES IN PLACE. ENDORSED TO NIGHT NURSE. CONTINUE TO MONITOR PATIENT.
[2018-03-23] VITALS: BP 109/56
[2018-03-23] MEDS: ALBUTEROL HALF STRENGTH 1.25 MG/3 ML VIAL.NEB NEB SCH ×6 (02:38→23:09)
[2018-03-23] MEDS: IPRATROPIUM NEB FS 0.5 MG/2.5 ML AMPUL.NEB NEB SCH ×6 (02:38→22:58)
[2018-03-23] MEDS: NYSTATIN/TRIAMCIN CREAM 15 GM TUBE TP SCH ×2 (02:42→14:28)
[2018-03-23 04:00] VITALS: BP 113/63
[2018-03-23] MEDS: MEROPENEM 1 G in IV NS 0.9% 100 ML IV SCH ×3 (05:08→21:16)
[2018-03-23] MEDS: METOCLOPRAMIDE HCL 10 MG/2 ML VIAL IV SCH ×4 (05:09→23:40)
--- NOTE | 2018-03-23 06:00 | NUR ---
RN CLOSING NOTES PT REMAINS STABLE OF THE MOMENT. ALL DUE MEDS GIVEN, AM CARE PROVIDED. WILL ENDORSE FAUZIA TO AM RN
[2018-03-23 06:14] LABS: BASOPHILS % (AUTO) 0.2 % (0.0-2.0); EOSINOPHILS % (AUTO) 3.3 % (0.0-6.0); HEMATOCRIT 25 % (33-45); HEMOGLOBIN 7.9 g/dL (11.5-14.8); LYMPHOCYTES # (AUTO) 1.3 /CMM (0.8-4.8); LYMPHOCYTES % (AUTO) 8.5 % (20.0-44.0); MEAN CORPUSCULAR HGB CONC 32 g/dl (31.0-36.0); MEAN CORPUSCULAR VOLUME 87 fL (82-100); MONOCYTES % (AUTO) 6.2 % (2.0-12.0); NEUTROPHILS # (AUTO) 12.5 /CMM (1.8-8.9); NEUTROPHILS % (AUTO) 81.8 % (43.0-81.0); PLATELET COUNT (AUTO) 397 /CMM (150-450); RED BLOOD CELL COUNT(AUTO) 2.85 MIL/uL (4.0-5.2); WHITE BLOOD COUNT (AUTO) 15.4 K/uL (4.3-11.0)
[2018-03-23 06:23] LABS: MAGNESIUM 2.3 mg/dL (1.8-2.4); PHOSPHORUS 5.7 mg/dL (2.5-4.9)
--- NOTE | 2018-03-23 07:59 | NUR ---
NAMAN RN NOTE PATIENT IN BED , OBTUNDED OPEN BOTH YEYS , SKIN WORM, AND DRY TO TOUCH . RIGHT UPPER PICC LINE INTACT PATENT AND BLOOD RETURN PRESENT. G TUBE PATENT AND NO RESIDUAL.ON GTUBE FEEDING AT 20CC/HR TOLERATING WELL. HOB ELEVATED 40 DEGREES AT ALL TIMES. CONTACT PRECAUTIONS IN PLACE. DO NOT TAKE BLOOD PRESSURE ON RIGHT SIDE. BED IN LOW POSITION, SAFETY MEASURES IN PLACE. ON 4L NC SAT 97%, WITH SCHMITT CATH TO GRAVITY , ON KCI MATRASS ORDERED , ON TELE MONITOR ST 119 ,BED IN LOWEST AD LOCKED POSITION, WILL CONT TO MONITOR CLOSELY ,ON BREATHING TX ORDERED
[2018-03-23 08:00] VITALS: BP 103/59
[2018-03-23] MEDS: PANTOPRAZOLE 40 MG VIAL IV SCH (08:09)
[2018-03-23] MEDS: LORATADINE 10 MG TABLET PO SCH (08:10)
[2018-03-23] MEDS: CARBIDOPA/LEVODOPA 25/100 MG 1 UDTAB PO SCH ×2 (08:10→16:24)
[2018-03-23] MEDS: HEPARIN SODIUM, PORCINE 5000 UNITS/1 ML VIAL SQ SCH (08:10)
[2018-03-23] MEDS: ACIDOPHILUS/BULGARICUS 1 EACH TAB.CHEW PO SCH ×3 (08:10→16:24)
[2018-03-23] MEDS: CADEXOMER IODINE 40 GM TUBE TP SCH (08:12)
[2018-03-23] MEDS: DAKINS QUARTER STRENGTH (0.125%) 480 ML BOTTLE TOP SCH (08:12)
[2018-03-23] MEDS: AMPICILLIN 1 GM in IV NS 0.9% 50 ML IV SCH ×3 (08:13→23:40)
--- NOTE | 2018-03-23 11:48 | NUR ---
NAMAN RN NOTE DR THURSTON AT BEDSIDE STATED NO SHOWER FOR TODAY ALSO SPOKE WITH FAMILY ABOUT DISCHARGE PLANING , SPOKE WITH DAMON GRAIN HANDLER PER HIS REQUEST
[2018-03-23 12:00] VITALS: BP 118/61
--- NOTE | 2018-03-23 12:00 | NUR ---
NAMAN RN NOTE PER DIETARY OK TO INCREASE 30 ML G TUBE FEEDING ,STARTED ORDERED
--- NOTE | 2018-03-23 12:00 | NUR ---
NAMAN RN NOTE DAUGHTER LUIZA INSISTED TO HAVE SHOWER ON SHOWER ROOM , PATIENT HAS G TUBE FEEDING ,ON TELE MONITOR, SAT IS 92% ,PATIENT ON O2 AT ALL TIME, NOT STABLE TO TRANSFER TO SHOWER ROOM , WILL CALL DR THURSTON
--- NOTE | 2018-03-23 12:24 | NUR ---
NAMAN RN NOTE SPOKE WIT DAUGHTER ALEX AWARE THAT NO ORDER FOR SHOWER ,STATED ITS OK
--- NOTE | 2018-03-23 15:00 | NUR ---
NAMAN RN NOTE CAREGIVER AT BEDSIDE ,CONT G TUBE FEEDING AT 30 ML PER HOUR , NO RESIDUAL NOTED WILL CONT TO MONITOR CLOSELY
[2018-03-23 16:00] VITALS: BP 109/72
--- NOTE | 2018-03-23 18:35 | NUR ---
NAMAN RN NOTE RESTING COMFORTABLY AT THIS TIME, ON G TUBE FEEDING ORDERED , RESIDUAL 10 ML NOTED ,KEEP HOB ELEVATED AT ALL TIME , ON KCI MATRES, WITH SCHMITT CATH TO GRAVITY NOT IN ACUTE DISTRESS , O2 SAT 96% ,ALL NEEDS ATTENDED, WILL CONT TO MONITOR CLOSELY
[2018-03-23 20:00] VITALS: BP 128/65
--- NOTE | 2018-03-23 20:00 | NUR ---
NAMAN RN NOTES RECEIVED PTS ON BED WITH EYES OPEN .DOESN'T FOLLOW COMMAND , ON 02 AT 4L VIA NC SATING 99% NO SOB NO DISTRESS NOTED ,V/S STABLE AFEBRILE , HOB ELEVATED AT ALL TIMES .SUCTION SECRETION DONE , WITH F/C INTACT AND PATENT WITH YELLOWISH URINE OUTPUT .GT FEEDING OF JEVITY AT 30CC/HR WITH NO RESIDUAL NOTED . TURNED AND REPOSITION Q 2 HRS AND PRN . ALL DUE MEDS GIVEN ORDERED,ALL NEEDS ATTENDED TOO , KEPT PTS CLEAN AND COMFORTABLE WILL CONTINUE TO MONITOR PTS. DAUGHTER AT BEDSIDE UPDATED WITH PTS CURRENT CONDITION.
[2018-03-24] VITALS: BP 125/73
[2018-03-24] MEDS: NYSTATIN/TRIAMCIN CREAM 15 GM TUBE TP SCH ×2 (03:12→16:28)
[2018-03-24] MEDS: ALBUTEROL HALF STRENGTH 1.25 MG/3 ML VIAL.NEB NEB SCH ×6 (03:20→23:40)
[2018-03-24] MEDS: IPRATROPIUM NEB FS 0.5 MG/2.5 ML AMPUL.NEB NEB SCH ×6 (03:20→23:39)
[2018-03-24 04:00] VITALS: BP 124/69
[2018-03-24] MEDS: MEROPENEM 1 G in IV NS 0.9% 100 ML IV SCH ×3 (05:43→20:28)
[2018-03-24] MEDS: METOCLOPRAMIDE HCL 10 MG/2 ML VIAL IV SCH ×3 (05:44→17:10)
[2018-03-24 05:57] VITALS: BP 124/69
[2018-03-24 06:21] LABS: BASOPHILS % (AUTO) 0.2 % (0.0-2.0); EOSINOPHILS % (AUTO) 2.3 % (0.0-6.0); HEMATOCRIT 23 % (33-45); HEMOGLOBIN 7.6 g/dL (11.5-14.8); LYMPHOCYTES # (AUTO) 1.3 /CMM (0.8-4.8); LYMPHOCYTES % (AUTO) 10.4 % (20.0-44.0); MEAN CORPUSCULAR HGB CONC 33 g/dl (31.0-36.0); MEAN CORPUSCULAR VOLUME 87 fL (82-100); MONOCYTES # (AUTO) 0.8 /CMM (0.1-1.30); MONOCYTES % (AUTO) 6.4 % (2.0-12.0); NEUTROPHILS # (AUTO) 10.2 /CMM (1.8-8.9); NEUTROPHILS % (AUTO) 80.7 % (43.0-81.0); PLATELET COUNT (AUTO) 439 /CMM (150-450); RED BLOOD CELL COUNT(AUTO) 2.69 MIL/uL (4.0-5.2); WHITE BLOOD COUNT (AUTO) 12.6 K/uL (4.3-11.0)
[2018-03-24 06:52] LABS: CALCIUM, SERUM 9.9 mg/dL (8.5-10.1); CARBON DIOXIDE 29 mmol/L (21-32); CHLORIDE 112 mmol/L (98-107); GLUCOSE 143 mg/dL (74-106); MAGNESIUM 2.3 mg/dL (1.8-2.4); PHOSPHORUS 5.6 mg/dL (2.5-4.9); POTASSIUM 3.8 mmol/L (3.5-5.1); SODIUM SERUM 151 mmol/L (136-145); UREA NITROGEN, BLOOD 50 mg/dL (7-18)
--- NOTE | 2018-03-24 06:53 | NUR ---
NAMAN RN NOTES PTS REMAINS IN BED ON 2LITERS OF 02 VIA NC SATING 96 %, ALL NEEDS ATTENDED TOO CALL LIGHT WITHIN REACH REMAINS ON GT JEVITY AT 30CC/HR WELL TOLERATED V/S STABLE AFEBRILE WILL ENDORSE TO RN DAY SHIFT FOR CONTINUITY OF CARE.
--- NOTE | 2018-03-24 07:32 | NUR ---
NAMAN OPENING NOTES RECEIVED BEDSIDE REPORT FROM NOC. PATIENT SLEEPING IN BED A/O X0 OBTUNDED. ABLE TO STIMULATE WITH TOUCH ONLY. NO SIGNS OR SYMPTOMS OF RESPIRATORY DISTRESS ON 2 LTRS [employer]; CANNULA NO ACUTE PAIN NOTES. GTF RUNNING AT 30 MLS/HR WITH NO RESIDUAL . SINUS TACHY ON MONITOR 100'S. IV TKO TO JOSE PICC. SCHMITT CATH DRAINING CLEAR YELLOW URINE. SAFETY PRECAUTIONS IN PLACE BED IN LOW POSITION CALL LIGHT WITHIN REACH. WILL CONT TO MONITOR
[2018-03-24 08:00] VITALS: BP 117/68
[2018-03-24] MEDS: AMPICILLIN 1 GM in IV NS 0.9% 50 ML IV SCH ×2 (08:09→16:27)
[2018-03-24] MEDS: CARBIDOPA/LEVODOPA 25/100 MG 1 UDTAB PO SCH ×2 (08:10→17:10)
[2018-03-24] MEDS: LORATADINE 10 MG TABLET PO SCH (08:10)
[2018-03-24] MEDS: PANTOPRAZOLE 40 MG VIAL IV SCH (08:10)
[2018-03-24] MEDS: ACIDOPHILUS/BULGARICUS 1 EACH TAB.CHEW PO SCH ×3 (08:10→17:10)
[2018-03-24] MEDS: JEVITY 1.2 CAL 1,000 ML BOTTLE GT PRN (08:29)
[2018-03-24] MEDS: CADEXOMER IODINE 40 GM TUBE TP SCH (08:30)
[2018-03-24] MEDS: DAKINS QUARTER STRENGTH (0.125%) 480 ML BOTTLE TOP SCH (08:30)
--- NOTE | 2018-03-24 08:30 | NUR ---
NERI TD NOTES GT RUNNING AT 30ML/HR. NO RESIDUAL AT THIS TIME. INCREASED THE FEEDING TO 40ML/HR. WILL CONTINUE TO MONITOR.
--- NOTE | 2018-03-24 13:00 | NUR ---
RN MS NOTE RESIDUAL 100+. HELD FEEDING. WILL CHECK IN AN HOUR FOR RESIDUAL.
[2018-03-24] MEDS ORDERED: IV D5W 1,000 ML IV ONE (14:00)
--- NOTE | 2018-03-24 14:00 | NUR ---
RN MS NOTE STILL HAS 100+ RESIDUAL. FEEDING DECREASED BACK TO 30ML/HR. TOLERATING WELL
[2018-03-24 16:00] VITALS: BP 89/53
--- NOTE | 2018-03-24 19:10 | NUR ---
RN CLOSING NOTE PATIENT OBTUNDED EYES ARE OPEN. ON GT FEEDING 30ML/HR TOLERATING WELL. IV ON RIGHT UPPER ARM PICC. D5W RUNNING AT 50ML/HR. ON 1L NC AT 97%. ALL MEDS GIVEN. WOUND CARE DONE. FAMILY ON BEDSIDE. BED LOCKED AND ON 40 DEGREES ORDERED. CALL LIGHT WITHIN REACH. REPORT GIVEN TO NOC SHIFT FOR CONT OF CARE.
[2018-03-24 20:00] VITALS: BP 122/69
--- NOTE | 2018-03-24 20:00 | NUR ---
ms rn notes received pts in bed obtunded and responsive v/s stable afebrile , on 02 at 1liter via nc sating 94% pts ongt feeding jevity at 30cc/hr tolerating well no residual noted ,on ivf d5w at 50cc/hr infusing well all needs attended too call light within reach , all due meds given as ordered kept pts clean dry and comfortable, will continue to monitor pts.
[2018-03-25] MEDS: METOCLOPRAMIDE HCL 10 MG/2 ML VIAL IV SCH ×5 (01:59→23:23)
[2018-03-25] MEDS: AMPICILLIN 1 GM in IV NS 0.9% 50 ML IV SCH ×4 (01:59→23:33)
[2018-03-25] MEDS: NYSTATIN/TRIAMCIN CREAM 15 GM TUBE TP SCH ×2 (02:01→14:00)
[2018-03-25] MEDS: ALBUTEROL HALF STRENGTH 1.25 MG/3 ML VIAL.NEB NEB SCH ×5 (03:44→20:25)
[2018-03-25] MEDS: IPRATROPIUM NEB FS 0.5 MG/2.5 ML AMPUL.NEB NEB SCH ×5 (03:44→20:25)
[2018-03-25 04:00] VITALS: BP 118/72
[2018-03-25] MEDS: MEROPENEM 1 G in IV NS 0.9% 100 ML IV SCH ×3 (04:07→20:50)
--- NOTE | 2018-03-25 06:32 | NUR ---
MS RN NOTES PTS REMAINS IN BED STABLE NO SOB NO DISTRESS NOTED , ON 1LITER OF O2 SATING 100% WILL ENDORSE TO RN DAY SHIFT FOR CONTINUITY OF CARE
--- NOTE | 2018-03-25 07:15 | NUR ---
RN OPENING NOTES RECEIVED BEDSIDE REPORT FROM NOC. PATIENT SLEEPING IN BED A/O X0 OBTUNDED. ABLE TO STIMULATE WITH TOUCH ONLY. NO SIGNS OR SYMPTOMS OF RESPIRATORY DISTRESS ON 1 L NC NO SIGNS OF ACUTE PAIN. GTF RUNNING AT 30 MLS/HR WITH NO RESIDUAL TOLERATING WELL. SINUS TACHY ON MONITOR 100'S. IV D5W AT 50ML/HR JOSE PICC. SCHMITT CATH DRAINING CLEAR YELLOW URINE. SAFETY PRECAUTIONS IN PLACE BED IN LOW POSITION CALL LIGHT WITHIN REACH. WILL CONT TO MONITOR
[2018-03-25 08:00] VITALS: BP 150/77
[2018-03-25] MEDS: CARBIDOPA/LEVODOPA 25/100 MG 1 UDTAB PO SCH ×2 (08:03→17:03)
[2018-03-25] MEDS: ACIDOPHILUS/BULGARICUS 1 EACH TAB.CHEW PO SCH ×3 (08:03→17:03)
[2018-03-25] MEDS: LORATADINE 10 MG TABLET PO SCH (08:03)
[2018-03-25] MEDS: PANTOPRAZOLE 40 MG VIAL IV SCH (08:03)
[2018-03-25] MEDS: CADEXOMER IODINE 40 GM TUBE TP SCH (08:04)
[2018-03-25] MEDS: DAKINS QUARTER STRENGTH (0.125%) 480 ML BOTTLE TOP SCH (08:04)
[2018-03-25] MEDS: JEVITY 1.2 CAL 1,000 ML BOTTLE GT PRN (08:25)
[2018-03-25 10:50] LABS: BASOPHILS # (AUTO) 0.1 /CMM (0.0-0.2); BASOPHILS % (AUTO) 0.4 % (0.0-2.0); EOSINOPHILS % (AUTO) 1.1 % (0.0-6.0); HEMATOCRIT 26 % (33-45); HEMOGLOBIN 8.5 g/dL (11.5-14.8); LYMPHOCYTES # (AUTO) 1.4 /CMM (0.8-4.8); LYMPHOCYTES % (AUTO) 9.5 % (20.0-44.0); MEAN CORPUSCULAR HGB CONC 32 g/dl (31.0-36.0); MEAN CORPUSCULAR VOLUME 87 fL (82-100); MONOCYTES # (AUTO) 0.8 /CMM (0.1-1.30); MONOCYTES % (AUTO) 5.4 % (2.0-12.0); NEUTROPHILS # (AUTO) 12.5 /CMM (1.8-8.9); NEUTROPHILS % (AUTO) 83.6 % (43.0-81.0); PLATELET COUNT (AUTO) 358 /CMM (150-450); RED BLOOD CELL COUNT(AUTO) 3.03 MIL/uL (4.0-5.2); WHITE BLOOD COUNT (AUTO) 14.9 K/uL (4.3-11.0)
[2018-03-25 11:07] LABS: CALCIUM, SERUM 9.8 mg/dL (8.5-10.1); CARBON DIOXIDE 30 mmol/L (21-32); CHLORIDE 107 mmol/L (98-107); CREATININE 1.7 mg/dL (0.6-1.3); GLUCOSE 134 mg/dL (74-106); MAGNESIUM 2.1 mg/dL (1.8-2.4); POTASSIUM 3.9 mmol/L (3.5-5.1); SODIUM SERUM 146 mmol/L (136-145); UREA NITROGEN, BLOOD 46 mg/dL (7-18)
[2018-03-25 11:59] LABS: LYMPHOCYTES % (MANUAL) 10 % (16-48); MONOCYTES % (MANUAL) 4 % (0-11.0); NEUTROPHILS % (MANUAL) 86 (42-76)
[2018-03-25 12:00] VITALS: BP 125/68
--- NOTE | 2018-03-25 14:30 | NUR ---
RN NOTE DR THURSTON ON BEDSIDE. ORDERED TO STOP IV FLUIDS RUNNING AND NEW ORDER OF FREE WATER FLUSH 100CC/HR 3X DAY. ORDER CARRIED OUT
[2018-03-25 16:00] VITALS: BP 120/70
--- NOTE | 2018-03-25 19:15 | NUR ---
RN CLOSING NOTE REPORT GIVEN TO NOC SHIFT RN. PATIENT IN BED OBTUNDED OPENS EYES. FAMILY ON BEDSIDE. ON GT FEEDING RUNNING AT 30 CC/HR. NO RESIDUAL THE ENTIRE SHIFT. NO SIGNS AND SYMPTOMS OF ANY DISTRESS. ALL VS ARE WITHIN NORMAL LIMITS THROUGHOUT THE SHIFT. IV RIGHT UPPER ARM PICC INTACT, PATENT AND SALINE LOCKED. NO FLUIDS RUNNING AT THIS TIME PER MD ORDER. TURNED AND REPOSITIONED EVERY 2 HOURS THROUGHOUT THE SHIFT. SCHMITT ON GRAVITY CLEAR AND YELLOW. ALL MEDS GIVEN THROUGH GT AND IV. BED POSITIONED DIAGONALLY FAMILY REQUESTED. BED LOCKED AND LOW POSITION. CALL LIGHT WITHIN REACH. WILL ENDORSE TO NOC SHIFT
[2018-03-25 20:00] VITALS: BP 115/60
--- NOTE | 2018-03-25 20:00 | NUR ---
MS RN NOTES RECEIVED PT IN BED OBTUNDED W/ EYE OPENING. NO SOB. NO DISTRESS NOTED. PT ON 1 L O2 VIA NC SATING 94%. VS STABLE AFEBRILE. DAUGHTER AT BEDSIDE UPDATED WITH PT CONDITION. TURN AND REPOSITION DONE. HOB ELEVATED AT ALL TIMES FOR ASPIRATION PRECAUTION. PT ON GT FEEDING JEVITY 1.2 @ 30CC/HR W? NO RESIDUAL NOTED. JOSE PICC LINE INTACT AND PATENT. DUE MEDS GIVEN ORDERED. FREE FLUSHING 100 CC TID OF H20. PT ON CONTACT ISOLATION ESBL ACBC URINE PRECAUTIONARY MEASURES OBSERVED AT ALL TIMES. BED LOCKED AND LOWEST POSITION. WILL CONTINUE TO MONITOR PT.
[2018-03-26] MEDS: IPRATROPIUM NEB FS 0.5 MG/2.5 ML AMPUL.NEB NEB SCH ×4 (00:14→10:23)
[2018-03-26] MEDS: ALBUTEROL HALF STRENGTH 1.25 MG/3 ML VIAL.NEB NEB SCH ×4 (00:14→10:23)
[2018-03-26] MEDS: NYSTATIN/TRIAMCIN CREAM 15 GM TUBE TP SCH (01:49)
[2018-03-26 04:00] VITALS: BP 105/54
[2018-03-26] MEDS: METOCLOPRAMIDE HCL 10 MG/2 ML VIAL IV SCH (05:31)
[2018-03-26] MEDS: MEROPENEM 1 G in IV NS 0.9% 100 ML IV SCH (05:32)
--- NOTE | 2018-03-26 06:34 | NUR ---
MS RN NOTES PT COMFORTABLE IN BED. SATING 94%-97% VIA NC @ 1L OF O2. REMAINS G TUBE FEEDING 30CC JEVITY 1.2 TOLERATING WELL. NO FACIAL GRIMACING NOTED. WILL ENDORSE TO AM NURSE FOR CONTINUITY OF CARE.
[2018-03-26 06:41] LABS: BASOPHILS % (AUTO) 0.3 % (0.0-2.0); EOSINOPHILS % (AUTO) 3.2 % (0.0-6.0); HEMATOCRIT 26 % (33-45); HEMOGLOBIN 8.7 g/dL (11.5-14.8); LYMPHOCYTES # (AUTO) 1.9 /CMM (0.8-4.8); LYMPHOCYTES % (AUTO) 13.5 % (20.0-44.0); MEAN CORPUSCULAR HGB CONC 33 g/dl (31.0-36.0); MEAN CORPUSCULAR VOLUME 86 fL (82-100); MONOCYTES # (AUTO) 0.9 /CMM (0.1-1.30); MONOCYTES % (AUTO) 6.4 % (2.0-12.0); NEUTROPHILS # (AUTO) 10.7 /CMM (1.8-8.9); NEUTROPHILS % (AUTO) 76.6 % (43.0-81.0); PLATELET COUNT (AUTO) 445 /CMM (150-450); RED BLOOD CELL COUNT(AUTO) 3.02 MIL/uL (4.0-5.2)
[2018-03-26 06:43] LABS: CARBON DIOXIDE 31 mmol/L (21-32); CHLORIDE 109 mmol/L (98-107); CREATININE 1.5 mg/dL (0.6-1.3); GLUCOSE 105 mg/dL (74-106); MAGNESIUM 2.1 mg/dL (1.8-2.4); PHOSPHORUS 5.1 mg/dL (2.5-4.9); POTASSIUM 4.3 mmol/L (3.5-5.1); SODIUM SERUM 149 mmol/L (136-145); UREA NITROGEN, BLOOD 43 mg/dL (7-18)
--- NOTE | 2018-03-26 07:00 | NUR ---
MS RN OPENING NOTES RECEIVED PT IN BED, HOB ELEVATED 35 DEG. ON 1L NC. O2 SAT 99%. WHEEZING NOTED BOTH UPPER LOBES. ACTIVE BS. HR REGULAR. F/C DRAINING YELLOW CLEAR URINE. NO RESIDUAL NOTED GT. PICC LINE PATENT/ IV FLUIDS TKO RUNNING. PT OPENS EYES TO TOUCH. BED IN LOCKED POSITION. CALL LIGHT IN REACH. DISCUSSED POC WITH DAUGHTER ON PHONE. WILL CONT TO MONITOR.
[2018-03-26 08:00] VITALS: BP 116/49
[2018-03-26] MEDS: AMPICILLIN 1 GM in IV NS 0.9% 50 ML IV SCH (08:14)
[2018-03-26] MEDS: LORATADINE 10 MG TABLET PO SCH (08:17)
[2018-03-26] MEDS: CARBIDOPA/LEVODOPA 25/100 MG 1 UDTAB PO SCH (08:17)
[2018-03-26] MEDS: PANTOPRAZOLE 40 MG VIAL IV SCH (08:17)
[2018-03-26] MEDS: ACIDOPHILUS/BULGARICUS 1 EACH TAB.CHEW PO SCH (08:17)
[2018-03-26] MEDS: DAKINS QUARTER STRENGTH (0.125%) 480 ML BOTTLE TOP SCH (08:24)
[2018-03-26] MEDS: CADEXOMER IODINE 40 GM TUBE TP SCH (08:25)
[2018-03-26 09:40] LABS: BAND % (MANUAL) 3 % (0.0-5.0); EOSINOPHILS % (MANUAL) 1 % (0-4); LYMPHOCYTES % (MANUAL) 10 % (16-48); MONOCYTES % (MANUAL) 5 % (0-11.0); NEUTROPHILS % (MANUAL) 81 (42-76)
[2018-03-26] MEDS: JEVITY 1.2 CAL 1,000 ML BOTTLE GT PRN (10:08)
--- NOTE | 2018-03-26 11:00 | NUR ---
MS RN NOTES PER VANNESA JUSTICE TO D/C [facility] BEFORE DISCHARGE
[2018-03-26] MEDS ORDERED: DAPT500V2 IV (11:14)
[2018-03-26] MEDS ORDERED: NYST15CR2 TP (11:14)
[2018-03-26] MEDS ORDERED: LACT-209 GT (11:14)
[2018-03-26] MEDS ORDERED: ERTA1VIA IV (11:14)
[2018-03-26] MEDS ORDERED: ACID1TAB12 PO (11:14)
--- NOTE | 2018-03-26 12:17 | NUR ---
MS RN NOTES NOTIFIED DR THURSTON, PT NOT SATING WELL ON ROOM AIR. O2 SAT 88-89 RM. WILL NOTIFY CM PT REQUIRES O2 AT HOME.
--- NOTE | 2018-03-26 13:40 | NUR ---
MS RN NOTES SCHMITT CATH INSERTED. PT TOLERATED WELL. PICS TAKEN. WOUND CARE DONE. PT LEFT IN WHEELCHAIR. FAMILY ACCOMPANYING. FAMILY REFUSED TO SIGN AMA. STATED O2 WILL BE DELIVERED AT HOME. COPIES OF INSTRUCTIONS/MEDS/LABS GIVEN TO FAMILY. DR THURSTON CALLED RE: DISCHARGE BUT FAMILY LEFT WITHOUT TALKING TO MD.
[2018-03-27] MEDS ORDERED: ALBUTEROL FS 2.5 MG/3 ML VIAL.NEB ONE (07:26)
[2018-04-02] MEDS ORDERED: ERTA1VIA IV (14:42)
[2018-04-02] MEDS ORDERED: DAPT500V IV (14:42)
[2018-04-02] MEDS ORDERED: METO-295 PO (14:42)
[2018-04-02] MEDS ORDERED: NUT.237L25 GT ×2 (14:42)
== END 2018-03-26 13:40 | disposition left against medical advice (07) | DRG 853 ==
LOC: ER 17:51 → TELE 21:16 → MED 03-17 10:11 → ICU 03-21 10:45 → TELE-TD 03-22 17:46 → MEDSG1 03-24 10:02
PROVIDERS: ADMIT Nurse Practitioner Acute Care; ATTEND Nurse Practitioner Acute Care
PROC: 02HV33Z Insertion of Infusion Device into Superior Vena Cava, Percutaneous Approach (ICD-10-PCS; 2018-03-15)
PROC: B548ZZA Ultrasonography of Superior Vena Cava, Guidance (ICD-10-PCS; 2018-03-15)
PROC: 0QB30ZZ Excision of Left Pelvic Bone, Open Approach (ICD-10-PCS; principal; 2018-03-16)
PROC: 0QB10ZZ Excision of Sacrum, Open Approach (ICD-10-PCS; 2018-03-16)
PROC: 0QB20ZZ Excision of Right Pelvic Bone, Open Approach (ICD-10-PCS; 2018-03-16)
PROC: 30253N1 (ICD-10-PCS; 2018-03-19)
DX: A41.9 Sepsis, unspecified organism (principal); N17.0 Acute kidney failure with tubular necrosis; L89.154 Pressure ulcer of sacral region, stage 4; L89.324 Pressure ulcer of left buttock, stage 4; R53.2 Functional quadriplegia; L89.314 Pressure ulcer of right buttock, stage 4; G93.41 Metabolic encephalopathy; E43 Unspecified severe protein-calorie malnutrition; J96.01 Acute respiratory failure with hypoxia; J69.0 Pneumonitis due to inhalation of food and vomit; E87.1 Hypo-osmolality and hyponatremia; N39.0 Urinary tract infection, site not specified; C90.00 Multiple myeloma not having achieved remission; D68.59 Other primary thrombophilia; L97.319 Non-pressure chronic ulcer of right ankle with unspecified severity; M86.9 Osteomyelitis, unspecified; J98.11 Atelectasis; L03.90 Cellulitis, unspecified; E87.0 Hyperosmolality and hypernatremia; Z87.440 Personal history of urinary (tract) infections; E86.0 Dehydration; N18.9 Chronic kidney disease, unspecified; F02.80 Dementia in other diseases classified elsewhere, unspecified severity, without behavioral disturbance, psychotic disturbance, mood disturbance, and anxiety; G30.9 Alzheimer's disease, unspecified; Z74.09 Other reduced mobility; D47.3 Essential (hemorrhagic) thrombocythemia; K21.9 Gastro-esophageal reflux disease without esophagitis; R13.10 Dysphagia, unspecified; Z87.01 Personal history of pneumonia (recurrent); E83.52 Hypercalcemia; Z74.01 Bed confinement status; Z86.718 Personal history of other venous thrombosis and embolism; Z93.1 Gastrostomy status; Z86.14 Personal history of Methicillin resistant Staphylococcus aureus infection; L30.4 Erythema intertrigo; I12.9 Hypertensive chronic kidney disease with stage 1 through stage 4 chronic kidney disease, or unspecified chronic kidney disease; D64.9 Anemia, unspecified; B95.2 Enterococcus as the cause of diseases classified elsewhere; B96.89 Other specified bacterial agents as the cause of diseases classified elsewhere
CPT/HCPCS: 31720; 36415; 36600; 71045-TC; 74230-TC; 80048-TC; 80053-TC; 80076-TC; 80202-TC; 81000-TC; 82803-TC; 83605-TC; 83735-TC; 84100-TC; 84134-TC; 85025-TC; 85730-TC; 86850-TC; 86921-TC; 87040-TC; 87070-TC; 87075-TC; 87081-TC; 87086-TC; 87186-TC; 94640-TC; 94799-TC; A4216; A4217; A6253; A6402; A6403; A6407; C9113; G0378; J0290; J0692; J1644; J2060; J2185; J2405; J2765; J3370; J7030; J7050; J7060; J7070; P9016-BL

== ENCOUNTER 2018-03-27 05:32 | Inpatient (IN) | payer MEDICARE, BC ==
[~2018-03-27] VITALS: Ht 160 cm; Wt 55.8 kg
[~2018-03-27 05:32] MED LIST changes: +ACID1TAB12 PO; +CALC667C6 GT; +CARB-93 GT; +DAPT500V2 IV; +ERTA1VIA IV; +NYST15CR2 TP
--- NOTE | 2018-03-27 05:45 | NUR ---
PT ERASMO. C/O "FAMILY WAS SUCTIONING TOO LONG, PT 02 SAT DROPPED". PT BEDBOUND BASELINE. SCHMITT IN PLACE. GTUBE FEEDING IN PLACE. R HAND PICC LINE FLUSHING WELL. PT ON 02 SATTING 100%. AOX0. NO ACUTE DISTRESS AT THIS TIME.
[2018-03-27] MEDS ORDERED: ONDANSETRON HCL/PF 4 MG/2 ML VIAL ONE (05:51)
--- NOTE | 2018-03-27 05:51 | NUR ---
16FR SCHMITT CATH PRESENT ON ARRIVAL, CLEAR YELLOW URINE DRAINING TO GRAVITY. JOSE PICC PRESENT ON ARRIVAL. BRISK BLOOD RETURN FROM BOTH PORTS.
[2018-03-27] MEDS ORDERED: ONDANSETRON HCL/PF 4 MG/2 ML VIAL IVP ONE (06:00)
[2018-03-27 06:03] LABS: BASOPHILS # (AUTO) 0.1 /CMM (0.0-0.2); BASOPHILS % (AUTO) 0.4 % (0.0-2.0); EOSINOPHILS % (AUTO) 1.6 % (0.0-6.0); HEMATOCRIT 32 % (33-45); LYMPHOCYTES # (AUTO) 1.9 /CMM (0.8-4.8); LYMPHOCYTES % (AUTO) 11.1 % (20.0-44.0); MEAN CORPUSCULAR HGB CONC 32 g/dl (31.0-36.0); MEAN CORPUSCULAR VOLUME 87 fL (82-100); MONOCYTES # (AUTO) 0.8 /CMM (0.1-1.30); MONOCYTES % (AUTO) 4.5 % (2.0-12.0); NEUTROPHILS # (AUTO) 14.3 /CMM (1.8-8.9); NEUTROPHILS % (AUTO) 82.4 % (43.0-81.0); PLATELET COUNT (AUTO) 642 /CMM (150-450); RED BLOOD CELL COUNT(AUTO) 3.65 MIL/uL (4.0-5.2); WHITE BLOOD COUNT (AUTO) 17.4 K/uL (4.3-11.0)
[2018-03-27 06:11] LABS: APPEARANCE,URINE SL CLOUDY (CLEAR); BILIRUBIN,URINE NEGATIVE (NEGATIVE); BLOOD, URINE 1+ Ery/uL (NEGATIVE); COLOR,URINE YELLOW (YELLOW); KETONES,URINE TRACE (NEGATIVE); LEUKOCYTE ESTERASE ,URINE TRACE (NEGATIVE); NITRITE, URINE NEGATIVE (NEGATIVE); PH,URINE 5.5 (5.0-8.0); PROTEIN,URINE 2+ mg/dl (NEGATIVE); UGLUCOSE NEGATIVE (NEGATIVE); UROBILINOGEN,URINE 0.2 EU/dL (0.2)
[2018-03-27 06:14] LABS: CALCIUM, SERUM 10.2 mg/dL (8.5-10.1); CARBON DIOXIDE 29 mmol/L (21-32); CHLORIDE 105 mmol/L (98-107); CREATININE 1.8 mg/dL (0.6-1.3); GLUCOSE 201 mg/dL (74-106); SODIUM SERUM 148 mmol/L (136-145); UREA NITROGEN, BLOOD 46 mg/dL (7-18)
[2018-03-27] MEDS ORDERED: VANCOMYCIN 1 GM VIAL ONE (06:22)
[2018-03-27 06:24] LABS: BACTERIA,URINE Few /HPF (None Seen); SQUAMOUS EPITHELIAL CELL,UR Many /HPF (None Seen); WBC,URINE 21-50 /HPF (0-3)
[2018-03-27 06:26] LABS: ALANINE AMINOTRANSFERASE 14 U/L (12-78); ALBUMIN 2.3 g/dL (3.4-5.0); ALKALINE PHOSPHATASE 107 U/L (46-116); ASPARTATE AMINOTRANSFERASE 16 U/L (15-37); B-TYPE NATRIURETIC PEPTIDE 581 PG/ML (0-125); BILIRUBIN,DIRECT 0.1 mg/dL (0.0-0.2); BILIRUBIN,TOTAL 0.5 mg/dL (0.2-1.0); TOTAL PROTEIN, SERUM 6.7 g/dL (6.4-8.2)
[2018-03-27] MEDS ORDERED: MEROPENEM 1 G VIAL IV ONE (06:29)
[2018-03-27] MEDS ORDERED: VANCOMYCIN 1 GM in IV D5W 250 ML IV ONE (06:30)
[2018-03-27] MEDS ORDERED: IV NS 0.9% 1,000 ML BAG IV ONE (06:30)
[2018-03-27] MEDS ORDERED: MEROPENEM 1 G in IV NS 0.9% 100 ML IV ONE ×3 (06:30→12:00)
--- NOTE | 2018-03-27 06:47 | NUR ---
RECEIVED VERBAL ORDER FOR DAPTOMYCIN 500MG AND INVANZ 1G. PER ALBARO IN PHARMACY, SUBSTITUTE MERREM FOR INVANZ. VERIFIED SUBSTITUTION WITH DR GUIDRY.
[2018-03-27 06:54] LABS: LYMPHOCYTES % (MANUAL) 18 % (16-48); MONOCYTES % (MANUAL) 8 % (0-11.0); NEUTROPHILS % (MANUAL) 74 (42-76)
[2018-03-27] MEDS ORDERED: ACETAMINOPHEN 650 MG/SUPP.RECT RC ONE ×2 (07:00→07:27)
[2018-03-27] MEDS ORDERED: DAPTOMYCIN 500 MG in IV NS 0.9% 50 ML IV SCH (07:00)
[2018-03-27] MEDS ORDERED: DAPTOMYCIN 500 MG in IV NS 0.9% 50 ML IV ONE (07:00)
[2018-03-27] MEDS ORDERED: MISCELLANEOUS MED 1 EA EA XX ONE (07:00)
[2018-03-27] MEDS ORDERED: ALBUTEROL FS 2.5 MG/3 ML VIAL.NEB NEB ONE (07:00)
--- NOTE | 2018-03-27 07:00 | NUR ---
RT AT BEDSIDE.
--- NOTE | 2018-03-27 07:45 | NUR ---
Patient is resting comfortably in bed with eyes closed. Easily aroused. VSS
--- NOTE | 2018-03-27 08:36 | NUR ---
PATIENT GOING TO ROOM 114-1
--- NOTE | 2018-03-27 08:58 | NUR ---
REPORT GIVEN TO NIA HE FOR FAUZIA
[2018-03-27] MEDS ORDERED: Z GUARD REMEDY 2 OZ OINT TP PRN (10:30)
[2018-03-27] MEDS ORDERED: JEVITY 1.2 CAL 1,000 ML BOTTLE GT PRN ×2 (10:30→20:00)
[2018-03-27] MEDS ORDERED: HYDROCODONE/APAP 5/325MG 1 EACH TABLET PO PRN (10:30)
[2018-03-27] MEDS ORDERED: MAGNESIUM HYDROXIDE 30 ML UDC PO PRN (10:30)
[2018-03-27] MEDS ORDERED: MAG HYDROX/AL HYDROX/SIMETH 30 ML UDC PO PRN (10:30)
[2018-03-27] MEDS ORDERED: ZOLPIDEM TARTRATE 5 MG TABLET PO PRN (10:30)
[2018-03-27] MEDS ORDERED: ONDANSETRON HCL/PF 4 MG/2 ML VIAL IVP PRN (10:30)
[2018-03-27] MEDS ORDERED: ACETAMINOPHEN 325 MG TABLET PO PRN (10:30)
--- NOTE | 2018-03-27 11:37 | NUR ---
RT NOTE PT NT SX'D. LARGE THICK YELLOW SECRETIONS. RN INFORMED.
[2018-03-27] MEDS: NYSTATIN/TRIAMCIN CREAM 15 GM TUBE TP SCH (11:50)
--- NOTE | 2018-03-27 11:50 | NUR ---
DEPILATORY PAINTERDENTAL THERAPIST NOTE RECEIVED REPORT FROM LEONEL RN FROM ER,PATIENT RECEIVED FROM ER VIA RNEY.NO SOB NO DISTRESS NOTED.ON O2 VIA NASAL CANULA 4L.VITAL SIGNS STABLE.DAUGHTER AND DATA ASSISTANT AT BEDSIDE.HISTORY OBTAINED FROM DATA ASSISTANT.OK PER DAUGHTER.WILL CONTINUE TO MONITOR.
[2018-03-27 12:00] VITALS: BP 145/82
--- NOTE | 2018-03-27 12:00 | NUR ---
CYBER OPS PLANNER NOTE ADMISSION ASSESSMENT DONE.ON TELE MONITOR ST WITH HR 121.IV ON JOSE PICC WITH 2 LUMEN INTACT AND PATEN ONE LUMEN.RESISTANT NOTED WITH OTHER LUMEN.F/C DRAINING CLEAR YELLOW URINE.SRX3.BED IS LOW AND IN LOW POSITION CALL LIGHT IN REACH.WILL CONTINUE TO MONITOR.
[2018-03-27] MEDS: CALCIUM ACETATE 667 MG TABLET PO SCH ×2 (13:04→17:45)
[2018-03-27] MEDS: DAPTOMYCIN IV SCH (13:04)
[2018-03-27] MEDS: ACIDOPHILUS/BULGARICUS 1 EACH TAB.CHEW PO SCH ×2 (13:04→16:46)
[2018-03-27] MEDS: NS 0.9% IV SCH (13:04)
[2018-03-27] MEDS: IV NS 0.9% 1,000 ML IV PRN ×2 (13:27→21:06)
[2018-03-27] MEDS ORDERED: METOPROLOL TARTRATE INJ 5 MG/5 ML AMPUL ONE (14:24)
[2018-03-27] MEDS: IPRATROPIUM NEB FS 0.5 MG/2.5 ML AMPUL.NEB NEB SCH ×2 (14:27→19:37)
--- NOTE | 2018-03-27 15:50 | NUR ---
SPECIAL EFFECTS DESIGNER NOTE GOT ORDER FOR GTF 30CC/HR PER FAMILY REQUEST.FAMILY NON COMPLIANCE ABOUT USE OF ISOLATION PRECAUTIONS,EXPLAINED RISK AND BENEFITS STILL REFUSING TO WEAR ISOLATION GOWN.SEEN BY ,CALL MADE TO [facility]NAST[place],GOT CONSENT TO DO THE PROCEDURE,WOUND DEBRIDEMENT DONE BY .
[2018-03-27 16:00] VITALS: BP_SYST 114; BP_SYST 116; BP_DIAS 62; BP_DIAS 65
[2018-03-27] MEDS: CARBIDOPA/LEVODOPA 25/100 MG 1 UDTAB PO SCH (16:46)
--- NOTE | 2018-03-27 19:30 | NUR ---
MAKE UP EDITOR NOTE ENDORSED TO PM NURSE FOR FAUZIA IN STABLE CONDITION.DAUGHTER WAS AT BEDSIDE.
--- NOTE | 2018-03-27 19:31 | NUR ---
RN NOTES RECEIVED PATIENT AWAKE, NON VERBAL, OPENS EYES TO VERBAL AND TACTILE STIMULI. ON 4 LPM O2 VIA NASAL CANNULA AND TOLERATED WELL WITH GOOD O2SAT. TELE MONITOR READS SINUS TACH WITH HEART RATE AT 116. RIGHT UPPER ARM PICC WITH 2LUMEN PATENT AND INTACT WITH ONGOING IVF INFUSING WELL. GT INTACT WITH ONGOING JEVITY 1.2 AT 30 CC/HOUR. SCHMITT CATH INTACT TO GRAVITY WITH CLEAR YELLOW URINE OUTPUT. PLAN OF CARE DISCUSSED WITH THE DAUGHTER AT BEDSIDE, ALL CONCERNS GIVEN AND VERBALIZED UNDERSTANDING. WILL TURN AND REPOSITION, KEPT CLEAN AND DRY. SAFETY MEASURES, FALL PRECAUTION AND ISOLATION PRECAUTION OBSERVED. WILL CONTINUE TO MONITOR PATIENT.
[2018-03-27 20:00] VITALS: BP_SYST 111; BP_SYST 148; BP_DIAS 68; BP_DIAS 87
--- NOTE | 2018-03-27 20:45 | NUR ---
RN NOTES GT RESIDUAL IS 200ML, GT FEEDING PUT ON HOLD, YULISSA CUBE CUTTER ON THE FLOOR AWARE.
[2018-03-27] MEDS: DAKINS HALF STRENGTH (0.25%) 480 ML BOTTLE TOP SCH (21:13)
--- NOTE | 2018-03-27 22:05 | NUR ---
RN NOTES DAUGHTER OF THE PATIENT,ALEX NOTIFIED THAT GT RESIDUAL IS 200 AND FEEDING PUT ON HOLD. IT'S OK WITH THE DAUGHTER TO STOP THE FEEDING NOW AND WANTS IT TO BE HOLD IT UNTIL TOMORROW MORNING. WILL INFORM MD.
--- NOTE | 2018-03-27 22:20 | NUR ---
RN NOTES DAUGHTER ALEX SPOKE TO CHARGE NURSE SALVATORE AND ASK TO TAKE OUT THE 200ML RESIDUAL FROM THE GT FEEDING. CHARGE NURSE CHECK THE RESIDUAL, 200 ML AND DISCARDED AND KEPT THE GT FEEDING ON HOLD REQUESTED BY THE DAUGHTER. WILL INFORM .
[2018-03-28] VITALS: BP_SYST 121; BP_SYST 143; BP_DIAS 67; BP_DIAS 81
[2018-03-28] MEDS: NYSTATIN/TRIAMCIN CREAM 15 GM TUBE TP SCH ×2 (00:13→10:51)
[2018-03-28] MEDS: MEROPENEM 1 G in IV NS 0.9% 100 ML IV SCH ×2 (00:17→11:33)
[2018-03-28] MEDS: IPRATROPIUM NEB FS 0.5 MG/2.5 ML AMPUL.NEB NEB SCH ×4 (01:51→19:50)
[2018-03-28 04:00] VITALS: BP 124/63
--- NOTE | 2018-03-28 05:33 | NUR ---
RN Notes Patient stable overnight, vital signs stable, afebrile. Kept HOB elevated, No signs of distress and discomfort noted. On 4lpm O2 via nasal cannula and tolerated well. Tele monitor reads Sinus Rhythm and Sinus Tach, Heart rate between 97-116. GT intact, GT feeding on hold. Killian intact with clear urine out put noted. Kept clean and dry. Turned and reposition every 2 hrs and placed on low air loss mattress for skin management. All needs attended. Will endorsed to morning RN for continuity of care.
[2018-03-28 06:22] LABS: BASOPHILS % (AUTO) 0.2 % (0.0-2.0); EOSINOPHILS % (AUTO) 0.2 % (0.0-6.0); HEMATOCRIT 24 % (33-45); HEMOGLOBIN 7.8 g/dL (11.5-14.8); LYMPHOCYTES # (AUTO) 1.1 /CMM (0.8-4.8); LYMPHOCYTES % (AUTO) 4.6 % (20.0-44.0); MEAN CORPUSCULAR HGB CONC 32 g/dl (31.0-36.0); MEAN CORPUSCULAR VOLUME 87 fL (82-100); MONOCYTES # (AUTO) 0.9 /CMM (0.1-1.30); MONOCYTES % (AUTO) 3.8 % (2.0-12.0); NEUTROPHILS # (AUTO) 21.6 /CMM (1.8-8.9); NEUTROPHILS % (AUTO) 91.2 % (43.0-81.0); PLATELET COUNT (AUTO) 409 /CMM (150-450); RED BLOOD CELL COUNT(AUTO) 2.79 MIL/uL (4.0-5.2); WHITE BLOOD COUNT (AUTO) 23.7 K/uL (4.3-11.0)
[2018-03-28 06:34] LABS: CALCIUM, SERUM 9.6 mg/dL (8.5-10.1); CARBON DIOXIDE 29 mmol/L (21-32); CHLORIDE 113 mmol/L (98-107); CREATININE 1.7 mg/dL (0.6-1.3); GLUCOSE 117 mg/dL (74-106); MAGNESIUM 2.1 mg/dL (1.8-2.4); PHOSPHORUS 4.8 mg/dL (2.5-4.9); POTASSIUM 3.9 mmol/L (3.5-5.1); SODIUM SERUM 152 mmol/L (136-145); UREA NITROGEN, BLOOD 41 mg/dL (7-18)
--- NOTE | 2018-03-28 07:05 | NUR ---
RN NOTES RECEIVED PT ON BED, ALERT/ NONVERBAL , ON 4L O2 N/C , RESPIRATION EVEN AND UNLABORED, O2 SAT 94%, ON TELE ST HR IN 100'S, GT INTACT, TUBE FEEDING ON HOLD PER PT'S DAUGHTER REQUEST AT THIS TIME, R UPPER ARM PICC LINE SITE CLEAN, DRY AND INTACT WITH NS AT 75CC/HR RUNNING , SR UP x3, CALL LIGHT WITHIN EASY REACH, BED LOCKED AND IN LOWEST POSITION , CONTINUE TO MONITOR
--- NOTE | 2018-03-28 07:52 | NUR ---
WOUND CARE CONSULT WOUND CARE RECEIVED CONSULT FOR NEW ADMIT WITH WOUNDS. WOUND CARE WILL DEFER CONSULT AND ALL TREATMENT PLANS TO PLASTIC SURGICAL TEAM WHO ARE CURRENTLY FOLLOWING THIS PATIENT. PATIENT WITH DONN AT 8, ALL PRESSURE ULCER PREVENTION MEASURES ARE NOTED TO BE IN PLACE AT THIS TIME. WILL SEE PRN.
[2018-03-28 08:00] VITALS: BP 121/71
--- NOTE | 2018-03-28 08:00 | NUR ---
RN NOTES NO TF RESIDUAL NOTED, TF AT 20CC/HR RESTATED PER PT'S DAUGHTER REQUEST .
[2018-03-28] MEDS: CALCIUM ACETATE 667 MG TABLET PO SCH ×3 (08:33→17:39)
[2018-03-28] MEDS: ACIDOPHILUS/BULGARICUS 1 EACH TAB.CHEW PO SCH ×3 (08:33→16:25)
[2018-03-28] MEDS: CARBIDOPA/LEVODOPA 25/100 MG 1 UDTAB PO SCH ×2 (08:33→16:25)
[2018-03-28] MEDS: DAKINS HALF STRENGTH (0.25%) 480 ML BOTTLE TOP SCH ×2 (08:34→21:11)
[2018-03-28] MEDS ORDERED: DAPTOMYCIN 500 MG/VIAL VIAL IV SCH (09:00)
[2018-03-28] MEDS: ACETYLCYSTEINE 10% SOLN 400 MG/4 ML VIAL NEB SCH ×3 (10:34→23:43)
[2018-03-28 12:00] VITALS: BP_SYST 150; BP_SYST 194; BP_DIAS 82; BP_DIAS 84
[2018-03-28] MEDS ORDERED: DAPTOMYCIN 500 MG in IV NS 0.9% 50 ML IV SCH (13:00)
[2018-03-28] MEDS: DAPTOMYCIN IV SCH (13:01)
[2018-03-28] MEDS: NS 0.9% IV SCH (13:01)
--- NOTE | 2018-03-28 13:27 | NUR ---
RN NOTES DR HERNANDEZ NOTIFED REGARDING BLOOD CULTURE POSITIVE FOR COCCI IN CHAINS THAT WAS DRAWN ON 03-27.
--- NOTE | 2018-03-28 14:00 | NUR ---
RN NOTES 120CC GASTRIC RESIDUAL NOTED , TF HELD . NOTIFIED .
--- NOTE | 2018-03-28 15:30 | NUR ---
RN NOTES 130 CC GASTRIC RESIDUAL NOTED, TF ON HOLD , DR HOGAN NOTIFED , NEW ORDER RECEIVED .
[2018-03-28] MEDS: IV NS 0.9% 1,000 ML IV PRN (15:32)
[2018-03-28 16:00] VITALS: BP 133/74
[2018-03-28] MEDS: METOCLOPRAMIDE HCL 10 MG/2 ML VIAL IV SCH (16:25)
--- NOTE | 2018-03-28 18:00 | NUR ---
RN NOTES PT DAUGHTER REFUSED TO HAVE IVF RUNNING , IVF TURNED OFF , DR VASQUEZ NOTIFIED, TUBE FEEDING OFF AT THIS TIME DUE TO HIGH RESIDUAL ,AWAITING FOR CT SCAN . SR UP x3, CALL LIGHT WITHIN EASY REACH, BED LOCKED AND IN LOWEST POSITION, CONTINUE TO MONITOR .
--- NOTE | 2018-03-28 18:30 | NUR ---
RN NOTES L ARM WARM TO TOUCH , STRONG RADIAL PULSES WITH , ELBOW BRUISING NOTED. PT DAUGHTER REQUESTING U/S OF R ARM, DR HERNANDEZ NOTIFIED, NEW ORDER RECEIVED ULTRASOUND OF R ARM .
[2018-03-28 20:00] VITALS: BP 120/64
--- NOTE | 2018-03-28 20:00 | NUR ---
TELE/RN NOTES: TELE/RN NOTES. RECEIVED PT. IN BED W/ HOB ELEVATED W/ DAUGHTER AT BEDSIDE. ON TELE MONITOR W/ SR 90. PT. IS NON VERBAL. RESPIRATIONS EVEN AND UNLABORED. W/ O2 @ 4LPM VIA N/C SAT 98%. TUBE FEEDING ON HOLD DUE TO HIGH RESIDUAL WAITING FOR CT OF THE ABDOMEN. W/ JOSE PICC LINE W/ 1/2 NS AT 75 CC/HR RUNNING. CALL LIGHT W/ REACH. WILL CONTINUE TO MONITOR. BED LOCKED AND IN LOW POSITION. CONTINUE TO MONITOR.
[2018-03-28] MEDS: IV 1/2NS 1000 ML 1,000 ML IV PRN (21:56)
[2018-03-29] VITALS: BP 107/57
[2018-03-29] MEDS: NYSTATIN/TRIAMCIN CREAM 15 GM TUBE TP SCH ×3 (00:10→21:59)
[2018-03-29] MEDS: METOCLOPRAMIDE HCL 10 MG/2 ML VIAL IV SCH ×5 (00:13→23:48)
[2018-03-29] MEDS: MEROPENEM 1 G in IV NS 0.9% 100 ML IV SCH ×3 (00:13→23:48)
[2018-03-29] MEDS: IPRATROPIUM NEB FS 0.5 MG/2.5 ML AMPUL.NEB NEB SCH ×4 (01:37→19:50)
[2018-03-29 04:00] VITALS: BP 133/74
[2018-03-29 06:35] LABS: ALANINE AMINOTRANSFERASE < 6 U/L (12-78); ALBUMIN 1.8 g/dL (3.4-5.0); ALKALINE PHOSPHATASE 88 U/L (46-116); ASPARTATE AMINOTRANSFERASE 16 U/L (15-37); BILIRUBIN,TOTAL 0.4 mg/dL (0.2-1.0); CALCIUM, SERUM 9.9 mg/dL (8.5-10.1); CARBON DIOXIDE 29 mmol/L (21-32); CHLORIDE 112 mmol/L (98-107); CREATININE 1.5 mg/dL (0.6-1.3); GLUCOSE 78 mg/dL (74-106); MAGNESIUM 2.1 mg/dL (1.8-2.4); PHOSPHORUS 4.2 mg/dL (2.5-4.9); POTASSIUM 3.8 mmol/L (3.5-5.1); SODIUM SERUM 151 mmol/L (136-145); TOTAL PROTEIN, SERUM 5.5 g/dL (6.4-8.2); UREA NITROGEN, BLOOD 36 mg/dL (7-18)
[2018-03-29 06:44] LABS: BASOPHILS % (AUTO) 0.2 % (0.0-2.0); EOSINOPHILS % (AUTO) 0.4 % (0.0-6.0); HEMATOCRIT 24 % (33-45); HEMOGLOBIN 7.7 g/dL (11.5-14.8); LYMPHOCYTES % (AUTO) 6.1 % (20.0-44.0); MEAN CORPUSCULAR HGB CONC 32 g/dl (31.0-36.0); MEAN CORPUSCULAR VOLUME 88 fL (82-100); MONOCYTES # (AUTO) 0.6 /CMM (0.1-1.30); MONOCYTES % (AUTO) 3.7 % (2.0-12.0); NEUTROPHILS # (AUTO) 15.4 /CMM (1.8-8.9); NEUTROPHILS % (AUTO) 89.6 % (43.0-81.0); PLATELET COUNT (AUTO) 387 /CMM (150-450); RED BLOOD CELL COUNT(AUTO) 2.76 MIL/uL (4.0-5.2); WHITE BLOOD COUNT (AUTO) 17.2 K/uL (4.3-11.0)
[2018-03-29] MEDS: ACETYLCYSTEINE 10% SOLN 400 MG/4 ML VIAL NEB SCH ×2 (07:22→14:39)
--- NOTE | 2018-03-29 07:41 | NUR ---
RN/TELE NOTES: TOOK PT. TO STAT CT OF ABDOMEN/PELVIC . STATED GTF AT 20 ML/HR. REPORT GIVEN TO AM SHIFT FOR FAUZIA.
[2018-03-29 08:00] VITALS: BP 149/81
[2018-03-29] MEDS: ACIDOPHILUS/BULGARICUS 1 EACH TAB.CHEW PO SCH ×3 (09:09→17:38)
[2018-03-29] MEDS: DAKINS HALF STRENGTH (0.25%) 480 ML BOTTLE TOP SCH ×2 (09:09→20:46)
[2018-03-29] MEDS: CARBIDOPA/LEVODOPA 25/100 MG 1 UDTAB PO SCH ×2 (09:09→17:38)
[2018-03-29] MEDS: CALCIUM ACETATE 667 MG TABLET PO SCH ×3 (09:14→17:38)
[2018-03-29 12:00] VITALS: BP 123/66
[2018-03-29] MEDS: DAPTOMYCIN IV SCH (12:54)
[2018-03-29] MEDS: NS 0.9% IV SCH (12:54)
[2018-03-29 16:00] VITALS: BP 119/63
[2018-03-29 20:00] VITALS: BP 130/57
--- NOTE | 2018-03-29 20:00 | NUR ---
TELE/RN NOTES: RECEIVED PT. IN BED W/ HOB ELEVATED. ALERT TO SELF. NON VERBAL. DAUGHTER AT BEDSIDE. ON TELE MONITOR W/ SR 92. W/ JOSE PICC LINE W/ DRESSING C/D/I W/ NO S/S OF INFECTION/INFILTRATION NOTED. W/ JEVITY @ 20 ML/HR W/ NO RESIDUAL NOTED. NO FACIAL GRIMACES OR MOANING NOTED. W/ F/C PATENT AND INTACT DRAINING VIA GRAVITY. WILL CONTINUE TO MONITOR. ON CONTACT ISOLATION.
[2018-03-30] VITALS: BP 118/58
[2018-03-30] MEDS: ACETYLCYSTEINE 10% SOLN 400 MG/4 ML VIAL NEB SCH ×3 (00:23→15:52)
[2018-03-30] MEDS: IPRATROPIUM NEB FS 0.5 MG/2.5 ML AMPUL.NEB NEB SCH ×4 (00:39→20:00)
[2018-03-30 04:00] VITALS: BP 142/76
[2018-03-30] MEDS: METOCLOPRAMIDE HCL 10 MG/2 ML VIAL IV SCH ×3 (05:40→17:45)
[2018-03-30 06:31] LABS: BASOPHILS % (AUTO) 0.1 % (0.0-2.0); EOSINOPHILS % (AUTO) 1.1 % (0.0-6.0); HEMATOCRIT 24 % (33-45); HEMOGLOBIN 7.6 g/dL (11.5-14.8); LYMPHOCYTES # (AUTO) 1.2 /CMM (0.8-4.8); LYMPHOCYTES % (AUTO) 9.8 % (20.0-44.0); MEAN CORPUSCULAR HGB CONC 32 g/dl (31.0-36.0); MEAN CORPUSCULAR VOLUME 86 fL (82-100); MONOCYTES # (AUTO) 0.6 /CMM (0.1-1.30); NEUTROPHILS # (AUTO) 10.4 /CMM (1.8-8.9); PLATELET COUNT (AUTO) 395 /CMM (150-450); RED BLOOD CELL COUNT(AUTO) 2.73 MIL/uL (4.0-5.2); WHITE BLOOD COUNT (AUTO) 12.4 K/uL (4.3-11.0)
[2018-03-30 06:39] LABS: CALCIUM, SERUM 10.2 mg/dL (8.5-10.1); CARBON DIOXIDE 31 mmol/L (21-32); CHLORIDE 111 mmol/L (98-107); CREATININE 1.4 mg/dL (0.6-1.3); GLUCOSE 112 mg/dL (74-106); PHOSPHORUS 3.9 mg/dL (2.5-4.9); POTASSIUM 3.9 mmol/L (3.5-5.1); SODIUM SERUM 149 mmol/L (136-145); UREA NITROGEN, BLOOD 35 mg/dL (7-18)
--- NOTE | 2018-03-30 07:32 | NUR ---
RN/TELE NOTES: REPORT GIVEN TO AM NURSE FOR FAUZIA.
[2018-03-30 08:00] VITALS: BP 133/74
[2018-03-30] MEDS: DAKINS HALF STRENGTH (0.25%) 480 ML BOTTLE TOP SCH ×2 (09:15→21:22)
[2018-03-30] MEDS: CARBIDOPA/LEVODOPA 25/100 MG 1 UDTAB PO SCH ×2 (09:15→17:45)
[2018-03-30] MEDS: ACIDOPHILUS/BULGARICUS 1 EACH TAB.CHEW PO SCH ×3 (09:15→17:45)
[2018-03-30] MEDS: CALCIUM ACETATE 667 MG TABLET PO SCH ×3 (09:28→17:45)
[2018-03-30] MEDS: NYSTATIN/TRIAMCIN CREAM 15 GM TUBE TP SCH ×2 (11:11→21:23)
[2018-03-30 12:00] VITALS: BP 126/74
[2018-03-30] MEDS: MEROPENEM 1 G in IV NS 0.9% 100 ML IV SCH (12:14)
--- NOTE | 2018-03-30 15:13 | NUR ---
RN NOTE PICC LINE NOT FLUSHING , NOTIFY NURSING AWNING CRAFTSPERSON TO HAVE PICC LINE NURSE ASSIST. IV MEDICATIONS HELD DUE TO NO ACCESS.
[2018-03-30 16:00] VITALS: BP 147/85
[2018-03-30] MEDS: NS 0.9% IV SCH (16:09)
[2018-03-30] MEDS: DAPTOMYCIN IV SCH (16:09)
--- NOTE | 2018-03-30 19:17 | NUR ---
PATIENT IN BED AND OPENS EYES SPONTANEOUSY, IV PICC LINE PUT IN TODAY RIGHT UPPER PICC LINE. PATENT AND INTACT NO INFILTRATION OR INFECTION NOTED AT SITE. ULTRASOUNS DONE PER MD TO RULE OUT PLEAURAL EFFUSION. DAUGHTER AT BEDSIDE, CARETGIVER AT BEDSIDE. NO RESIDUAL NOTED THROUGH OUT THE SHIFT. FEEDING RUNNING AT 20ML/HR. NO BM THIS SHIFT, KEPT CLEAN AND DRY.
[2018-03-30 20:00] VITALS: BP 142/71
--- NOTE | 2018-03-30 20:00 | NUR ---
TELE TRIMMING MACHINE SET UP OPERATOR INITIAL NOTES SEEN PT IN BED AFTER GOT REPORT FROM AM NURSE. PT IS RESTING WITH EYES CLOSED, NON -VERBAL BUT AROUSABLE TO TOUCH . STILL ON G-TUBE FEEDING JEVITY AT 20ML/HR. 0 RESIDUAL NOTED AT THIS TIME. BREATHING EVEN AND UNLABORED NOT IN ANY ACUTE DISTRESS NOTED. IVF NS AT 75ML/HR INFUSING WELL MARITA HER PICC LINE. SCHMITT DRAINING WELL WITH CLEAR YELLOW OUTPUT NOTED. KEPT HER WARM AND COMFORTABLE AT ALL TIMES. HOB ELEVATED FOR ASPIRATION PRECAUTION. CONTACT ISOLATION IMPLEMENTED AND OBSERVED. KEPT HER WARM AND COMFORTABLE AT ALL TIMES. SIDE RAILS UP AND BED IN LOW AND LOCK IN POSITION. WILL CONTINUE MONITORING. DAUGHTER AT THE BEDSIDE.
--- NOTE | 2018-03-31 | NUR ---
TELE HASH SLINGER NOTES PT SLEEPING COMFORTABLY IN BED WITHOUT ANY ACUTE DISTRESS NOTED. PT TOLERATED HER G-TUBE FEEDING , NO ASPIRATION NOTED. KEPT HER ON SEMI FOWLERS POSITION FOR SAFETY. TELE SR PER MONITOR.
[2018-03-31] MEDS: MEROPENEM 1 G in IV NS 0.9% 100 ML IV SCH ×3 (00:25→23:52)
[2018-03-31] MEDS: METOCLOPRAMIDE HCL 10 MG/2 ML VIAL IV SCH ×5 (00:25→23:52)
[2018-03-31 00:32] VITALS: BP 125/60
[2018-03-31] MEDS: IPRATROPIUM NEB FS 0.5 MG/2.5 ML AMPUL.NEB NEB SCH ×4 (00:42→19:33)
[2018-03-31] MEDS: ACETYLCYSTEINE 10% SOLN 400 MG/4 ML VIAL NEB SCH ×4 (00:42→23:42)
[2018-03-31 04:00] VITALS: BP 136/76
[2018-03-31] MEDS: IV 1/2NS 1000 ML 1,000 ML IV PRN ×2 (05:34→22:48)
[2018-03-31 06:49] LABS: BASOPHILS # (AUTO) 0.1 /CMM (0.0-0.2); BASOPHILS % (AUTO) 0.6 % (0.0-2.0); EOSINOPHILS % (AUTO) 1.9 % (0.0-6.0); HEMATOCRIT 23 % (33-45); HEMOGLOBIN 7.6 g/dL (11.5-14.8); LYMPHOCYTES % (AUTO) 9.9 % (20.0-44.0); MEAN CORPUSCULAR HGB CONC 33 g/dl (31.0-36.0); MEAN CORPUSCULAR VOLUME 87 fL (82-100); MONOCYTES # (AUTO) 0.6 /CMM (0.1-1.30); MONOCYTES % (AUTO) 6.2 % (2.0-12.0); NEUTROPHILS # (AUTO) 8.2 /CMM (1.8-8.9); NEUTROPHILS % (AUTO) 81.4 % (43.0-81.0); PLATELET COUNT (AUTO) 360 /CMM (150-450); RED BLOOD CELL COUNT(AUTO) 2.68 MIL/uL (4.0-5.2); WHITE BLOOD COUNT (AUTO) 10.1 K/uL (4.3-11.0)
--- NOTE | 2018-03-31 06:52 | NUR ---
TELE SPECIALTY FOODS COOK CLOSING NOTES PT REMAINS SLEEPING AND STABLE MARITA THE NIGHT , PT TOLERATED HER G-TUBE FEEDING MARITA THE NIGHT NO ASPIRATION NOTED. RESPIRATION EVEN AND NON-LABORED, NOT IN ANY ACUTE DISTRESS NOTED. SCHMITT DRAINING WELL AND IVF STILL INFUSING. ALL DUE MEDS GIVEN AND ALL NEEDS MET. KEPT HER WARM AND COMFORTABLE AT ALL TIMES. HOB ELEVATED AT ALL TIMES. FOR PT SAFETY . ENDORSE TO AM NURSE FOR CONTINUITY OF CARE.
[2018-03-31 07:09] LABS: CALCIUM, SERUM 9.8 mg/dL (8.5-10.1); CARBON DIOXIDE 32 mmol/L (21-32); CHLORIDE 108 mmol/L (98-107); CREATININE 1.4 mg/dL (0.6-1.3); GLUCOSE 116 mg/dL (74-106); PHOSPHORUS 3.7 mg/dL (2.5-4.9); POTASSIUM 3.5 mmol/L (3.5-5.1); SODIUM SERUM 144 mmol/L (136-145); UREA NITROGEN, BLOOD 31 mg/dL (7-18)
--- NOTE | 2018-03-31 07:15 | NUR ---
TAPER OPERATOR OPENING NOTES RECEIVED REPORT FROM PM NURSE. PT IS RESTING WITH EYES CLOSED, NON -VERBAL BUT AROUSABLE TO TOUCH .ON G-TUBE FEEDING JEVITY AT 20ML/HR. 0 RESIDUAL NOTED AT THIS TIME. BREATHING EVEN AND UNLABORED NOT IN ANY ACUTE DISTRESS NOTED. IVF NS AT 75ML/HR INFUSING WELL MARITA HER PICC LINE. SCHMITT DRAINING WELL WITH CLEAR YELLOW OUTPUT NOTED. HOB ELEVATED FOR ASPIRATION PRECAUTION. CONTACT ISOLATION IMPLEMENTED AND OBSERVED. SIDE RAILS UP AND BED IN LOW AND LOCK IN POSITION. WILL CONTINUE MONITORING.
[2018-03-31 08:00] VITALS: BP 120/78
[2018-03-31] MEDS: CALCIUM ACETATE 667 MG TABLET PO SCH ×3 (08:11→17:33)
[2018-03-31] MEDS: CARBIDOPA/LEVODOPA 25/100 MG 1 UDTAB PO SCH ×2 (08:11→16:39)
[2018-03-31] MEDS: ACIDOPHILUS/BULGARICUS 1 EACH TAB.CHEW PO SCH ×3 (08:11→16:39)
[2018-03-31] MEDS: DAKINS HALF STRENGTH (0.25%) 480 ML BOTTLE TOP SCH ×2 (10:27→21:32)
[2018-03-31] MEDS: NYSTATIN/TRIAMCIN CREAM 15 GM TUBE TP SCH ×2 (10:27→22:41)
[2018-03-31 12:00] VITALS: BP 144/80
[2018-03-31] MEDS: NS 0.9% IV SCH (12:36)
[2018-03-31] MEDS: DAPTOMYCIN IV SCH (12:36)
--- NOTE | 2018-03-31 15:00 | NUR ---
PACKER DRIED BEEF NOTE SEEN BY INGA KIRBY ,UPDATED ABOUT PATIENT CONDITION WITH POSITIVE BLOOD CULTURE RESULT FOR VRE BLOOD.GOT NEW ORDERS.SPOKE TO HAS SOME QUESTIONS NOT HAPPY TALKING WITH ME.I TOLD WILL LET THE DR KNOW.INGA KIRBY MADE AWARE TO CALL FAMILY.TALKED TO DIETION GOT NEW RECOMMENDATION,OK TO CARRY OUT FROM INGA KIRBY.OK WITH DAUGHTER.WILL CONTINUE TO MONITOR.
[2018-03-31 16:00] VITALS: BP 145/81
[2018-03-31] MEDS ORDERED: TWOCAL HN 1,000 ML LIQUID GT PRN (17:00)
--- NOTE | 2018-03-31 19:09 | NUR ---
KEG RAISER CLOSING NOTES PT IS IN BED SON AT BEDSIDE, NON -VERBAL BUT AROUSABLE TO TOUCH .ON G-TUBE FEEDING 2 OLI HN@30 CC/HR. NO RESIDUAL NOTED AT THIS TIME. BREATHING EVEN AND UNLABORED NOT IN ANY ACUTE DISTRESS NOTED. IVF NS AT 75ML/HR INFUSING WELL MARITA HER PICC LINE. SCHMITT DRAINING WELL WITH CLEAR YELLOW OUTPUT NOTED. HOB ELEVATED FOR ASPIRATION PRECAUTION. CONTACT ISOLATION IMPLEMENTED AND OBSERVED. SIDE RAILS UP AND BED IN LOW AND LOCK IN POSITION. ENDORSED TO PM NURSE FOR FAUZIA.
[2018-03-31 20:00] VITALS: BP 129/74
--- NOTE | 2018-03-31 22:11 | NUR ---
RADIOLOGY TEACHER NOTES RECEIVED PT ON BED. A/O X 1. ON NASAL CANNULA 2LPM SATURATING WELL. ON TELE MONITOR SR. ON FC DRAINING YELLOW URINE. IV ACCESS JOSE PICC WITH 1/2 NS @ 75CC/HR. GTUBE FEEDING CLAMPED FOR NOW. HEAD OF BED ELEVATED. SIDE RAILS UP. CALL LIGHT WITHIN REACH. BED ALARM ON. WILL CONTINUE TO MONITOR PT CLOSELY.
[2018-04-01] VITALS: BP 135/76
[2018-04-01] MEDS: IPRATROPIUM NEB FS 0.5 MG/2.5 ML AMPUL.NEB NEB SCH ×4 (01:53→20:19)
[2018-04-01 04:00] VITALS: BP 142/81
[2018-04-01] MEDS: METOCLOPRAMIDE HCL 10 MG/2 ML VIAL IV SCH ×3 (05:01→17:48)
--- NOTE | 2018-04-01 06:39 | NUR ---
FREELANCE DIRECTOR NOTES NO ACUTE CHANGES NOTED DURING THE SHIFT. PROVIDED COMFORT AND SAFETY. WILL ENDORSE TO THE AM NURSE FOR CONTINUITY OF CARE.
--- NOTE | 2018-04-01 07:10 | NUR ---
RN OPENING NOTE PATIENT IN BED AWAKE, BUT NON VERBAL, OPENS EYES. ON 1L O2 SATING AT 100%. ON TELE MONITOR SINUS RHYTHM. SCHMITT CATHETER ON GRAVITY WITH CLEAR AND YELLOW URINE. HAS GT FEEDING RUNNING AT 20 ML/HR. NO RESIDUAL, TOLERATING WELL. HAS A RIGHT UPPER ARM PICC RUNNING HALF NS 75 CC/HR. BED ON LOWEST POSITION AND CALL LIGHT WITHIN REACH. WILL CONT TO MONITOR CLOSELY
[2018-04-01] MEDS: ACETYLCYSTEINE 10% SOLN 400 MG/4 ML VIAL NEB SCH ×2 (07:38→14:38)
[2018-04-01 08:00] VITALS: BP 126/68
[2018-04-01] MEDS: ACIDOPHILUS/BULGARICUS 1 EACH TAB.CHEW PO SCH ×3 (08:08→17:48)
[2018-04-01] MEDS: CALCIUM ACETATE 667 MG TABLET PO SCH ×3 (08:09→17:48)
[2018-04-01] MEDS: CARBIDOPA/LEVODOPA 25/100 MG 1 UDTAB PO SCH ×2 (08:09→17:48)
[2018-04-01] MEDS: DAKINS HALF STRENGTH (0.25%) 480 ML BOTTLE TOP SCH ×2 (09:09→22:38)
[2018-04-01] MEDS: NYSTATIN/TRIAMCIN CREAM 15 GM TUBE TP SCH ×2 (10:44→22:39)
[2018-04-01 11:27] LABS: CALCIUM, SERUM 9.9 mg/dL (8.5-10.1); CARBON DIOXIDE 34 mmol/L (21-32); CHLORIDE 105 mmol/L (98-107); CREATININE 1.4 mg/dL (0.6-1.3); GLUCOSE 108 mg/dL (74-106); POTASSIUM 3.8 mmol/L (3.5-5.1); SODIUM SERUM 140 mmol/L (136-145); UREA NITROGEN, BLOOD 29 mg/dL (7-18)
[2018-04-01 11:30] LABS: BASOPHILS % (AUTO) 0.2 % (0.0-2.0); EOSINOPHILS % (AUTO) 2.7 % (0.0-6.0); HEMATOCRIT 24 % (33-45); HEMOGLOBIN 7.9 g/dL (11.5-14.8); LYMPHOCYTES # (AUTO) 1.1 /CMM (0.8-4.8); MEAN CORPUSCULAR HGB CONC 32 g/dl (31.0-36.0); MEAN CORPUSCULAR VOLUME 86 fL (82-100); MONOCYTES # (AUTO) 0.7 /CMM (0.1-1.30); MONOCYTES % (AUTO) 5.5 % (2.0-12.0); NEUTROPHILS # (AUTO) 10.1 /CMM (1.8-8.9); NEUTROPHILS % (AUTO) 82.6 % (43.0-81.0); PLATELET COUNT (AUTO) 381 /CMM (150-450); RED BLOOD CELL COUNT(AUTO) 2.85 MIL/uL (4.0-5.2); WHITE BLOOD COUNT (AUTO) 12.2 K/uL (4.3-11.0)
[2018-04-01] MEDS: MEROPENEM 1 G in IV NS 0.9% 100 ML IV SCH (11:45)
[2018-04-01 12:00] VITALS: BP 113/62
[2018-04-01] MEDS: DAPTOMYCIN IV SCH (12:51)
[2018-04-01] MEDS: NS 0.9% IV SCH (12:51)
[2018-04-01] MEDS: IV 1/2NS 1000 ML 1,000 ML IV PRN (15:29)
[2018-04-01 16:00] VITALS: BP_SYST 113; BP_SYST 141; BP_DIAS 62; BP_DIAS 76
[2018-04-01] MEDS ORDERED: TWOCAL HN 1,000 ML LIQUID GT SCH (18:00)
--- NOTE | 2018-04-01 19:22 | NUR ---
RN CLOSING NOTE PATIENT IN BED, ASLEEP BUT EASILY AROUSABLE. ON 2L NC, SATING AT 98%. ON GT FEEDING 2.0 OLI 20ML/HR. IV FLUIDS RUNNING HALF NS AT 75 ML/HR. ALL MEDS GIVEN. ALL NEEDS MET. NO SIGNS OF ANY DISTRESS OR PAIN. BED LOCKED AND ON LOWEST POSITION. CALL LIGHT WITHIN REACH. ENDORSE TO NOC SHIFT RN
[2018-04-01 20:00] VITALS: BP 102/56
--- NOTE | 2018-04-01 20:19 | NUR ---
ACTING MANAGER NOTES RECEIVED PT ON BED. A/O X 1. ON NASAL CANNULA 2LPM SATURATING WELL. ON TELE MONITOR SR. IV ACCESS JOSE PICC WITH 1/2 NS RUNNING @ 75CC/HR. SCHMITT CATH DRAINING YELLOW URINE. GTUBE CLAMPED. HEAD OF BED ELEVATED. SIDE RAILS UP. CALL LIGHT WITHIN REACH. BED ALARM ON. WILL CONTINUE TO MONITOR PT CLOSELY.
[2018-04-02] VITALS (8 sets, daily range): BP systolic 105–132; BP diastolic 61–82
[2018-04-02] MEDS: ACETYLCYSTEINE 10% SOLN 400 MG/4 ML VIAL NEB SCH ×3 (00:01→15:32)
[2018-04-02] MEDS: IPRATROPIUM NEB FS 0.5 MG/2.5 ML AMPUL.NEB NEB SCH ×4 (00:07→19:29)
[2018-04-02] MEDS: MEROPENEM 1 G in IV NS 0.9% 100 ML IV SCH ×3 (01:16→23:28)
[2018-04-02] MEDS: METOCLOPRAMIDE HCL 10 MG/2 ML VIAL IV SCH ×5 (01:16→23:28)
--- NOTE | 2018-04-02 07:21 | NUR ---
RN CASE MGR NOTES NO ACUTE CHANGES NOTED DURING THE SHIFT. PROVIDED COMFORT AND SAFETY. WILL ENDORSE TO THE AM NURSE FOR CONTINUITY OF CARE.
--- NOTE | 2018-04-02 07:30 | NUR ---
RN NOTES RECEIVED PATIENT IN BED. ON HIGH BACK REST, RECEIVING BREATHING TREATMENT AT THIS TIME. NO SOB NOTED BREATHING EVEN AND UNLABORED, NOT IN ANY ACUTE DISTRESS. PATIENT A/OX1, NON-VERBAL, NO INDICATION OF PAIN NOTED AT THIS TIME. SINUS RHYTHM WITH HR AT 86 ON THE MONITOR. G-TUBE CLAMPED, IN PLACE, INTACT AND PATENT ON FLUSHING. IVF 1/2 NS AT 75ML/HR INFUSING WELL ON JOSE PICC LINE. SCHMITT INTACT AND DRAINING WELL TO CLEAR YELLOW OUTPUT. HOB ELEVATED FOR ASPIRATION PRECAUTION. CONTACT ISOLATION IMPLEMENTED AND OBSERVED. CALL LIGHT PLACED WITHIN EASY REACH. SIDE RAILS UP. BED IN LOW AND LOCK IN POSITION. WILL CONTINUE MONITOR
[2018-04-02 07:51] LABS: BASOPHILS % (AUTO) 0.2 % (0.0-2.0); HEMATOCRIT 24 % (33-45); LYMPHOCYTES # (AUTO) 1.3 /CMM (0.8-4.8); MEAN CORPUSCULAR HGB CONC 33 g/dl (31.0-36.0); MEAN CORPUSCULAR VOLUME 86 fL (82-100); MONOCYTES # (AUTO) 0.6 /CMM (0.1-1.30); MONOCYTES % (AUTO) 5.8 % (2.0-12.0); NEUTROPHILS # (AUTO) 8.3 /CMM (1.8-8.9); PLATELET COUNT (AUTO) 366 /CMM (150-450); WHITE BLOOD COUNT (AUTO) 10.8 K/uL (4.3-11.0)
[2018-04-02 08:07] LABS: CALCIUM, SERUM 9.7 mg/dL (8.5-10.1); CARBON DIOXIDE 30 mmol/L (21-32); CHLORIDE 104 mmol/L (98-107); CREATININE 1.4 mg/dL (0.6-1.3); GLUCOSE 110 mg/dL (74-106); SODIUM SERUM 141 mmol/L (136-145); UREA NITROGEN, BLOOD 28 mg/dL (7-18)
[2018-04-02] MEDS: CALCIUM ACETATE 667 MG TABLET PO SCH ×3 (09:50→17:29)
[2018-04-02] MEDS: ACIDOPHILUS/BULGARICUS 1 EACH TAB.CHEW PO SCH ×3 (09:50→16:05)
[2018-04-02] MEDS: DAKINS HALF STRENGTH (0.25%) 480 ML BOTTLE TOP SCH ×2 (09:51→21:17)
[2018-04-02] MEDS: CARBIDOPA/LEVODOPA 25/100 MG 1 UDTAB PO SCH ×2 (09:51→16:05)
[2018-04-02] MEDS: IV 1/2NS 1000 ML 1,000 ML IV PRN ×2 (11:16→19:51)
[2018-04-02] MEDS: NYSTATIN/TRIAMCIN CREAM 15 GM TUBE TP SCH ×2 (11:17→21:18)
[2018-04-02] MEDS: DAPTOMYCIN IV SCH (13:28)
[2018-04-02] MEDS: NS 0.9% IV SCH (13:28)
--- NOTE | 2018-04-02 14:00 | NUR ---
RN NOTES PATIENT DISCHARGED BUT DAUGHTER REQUESTED TO HAVE IT DONE IN AM, PER DAUGHTER STUFF FOR HOME MANAGEMENT IS NOT ARRANGED AND DELIVERED YET.
[2018-04-02] MEDS ORDERED: ERTA1VIA IV (14:42)
[2018-04-02] MEDS ORDERED: METO-295 PO (14:42)
[2018-04-02] MEDS ORDERED: DAPT500V IV (14:42)
[2018-04-02] MEDS ORDERED: NUT.237L25 GT ×2 (14:42)
--- NOTE | 2018-04-02 19:43 | NUR ---
RN NOTES ENDORSED FOR CONTINUITY OF CARE. NO ACUTE CHANGES WITHIN THE SHIFT. ALL NURSING NEEDS ANTICIPATED AND ATTENDED. SAFETY MEASURES, ASPIRATION PRECAUTION IN PLACE AT ALL TIMES. ISOLATION IMPLEMENTED AT ALL THE TIME.CALL LIGHT WITHIN REACH
[2018-04-03] VITALS: BP 123/72
[2018-04-03] MEDS: IPRATROPIUM NEB FS 0.5 MG/2.5 ML AMPUL.NEB NEB SCH ×3 (00:30→12:59)
[2018-04-03] MEDS: ACETYLCYSTEINE 10% SOLN 400 MG/4 ML VIAL NEB SCH ×2 (00:30→07:50)
[2018-04-03 04:00] VITALS: BP 120/71
[2018-04-03 06:01] VITALS: BP 124/68
[2018-04-03] MEDS: METOCLOPRAMIDE HCL 10 MG/2 ML VIAL IV SCH ×2 (06:04→12:11)
[2018-04-03] MEDS: IV 1/2NS 1000 ML 1,000 ML IV PRN (06:05)
--- NOTE | 2018-04-03 07:00 | NUR ---
ACID CUTTER NOTES RECEIVED PATIENT IN BED. ON HIGH BACK REST. NO SOB NOTED BREATHING EVEN AND UNLABORED, NOT IN ANY ACUTE DISTRESS. PATIENT A/OX1, NON-VERBAL, NO INDICATION OF PAIN NOTED AT THIS TIME. SINUS RHYTHM WITH HR AT 86 ON THE MONITOR. G-TUBE CLAMPED, IN PLACE, INTACT AND PATENT ON FLUSHING. IVF 1/2 NS AT 75ML/HR INFUSING WELL ON JOSE PICC LINE. SCHMITT INTACT AND DRAINING WELL TO CLEAR YELLOW OUTPUT. HOB ELEVATED FOR ASPIRATION PRECAUTION. CONTACT ISOLATION IMPLEMENTED AND OBSERVED. CALL LIGHT PLACED WITHIN EASY REACH. SIDE RAILS UP. BED IN LOW AND LOCK IN POSITION. WILL CONTINUE MONITOR.
--- NOTE | 2018-04-03 07:04 | NUR ---
RN NOTES NO SIGNIFICANT CHANGE OF CONDITION. PATIENT HAS NO MANIFESTATION OF PAIN OR DISCOMFORT. BREATHING EVEN AND UNLABORED. STILL HAS A RESIDUAL >300 OF 6AM. FEEDING STARTED AT 10MLS/HR AT MIDNIGHT REQUESTED BY DAUGHTER WITH RESIDUAL OF >50. WILL ENDORSE TO NEXT SHIFT FOR CONTINUITY OF CARE.
[2018-04-03 08:00] VITALS: BP 123/67
[2018-04-03] MEDS: CALCIUM ACETATE 667 MG TABLET PO SCH ×2 (08:34→12:11)
[2018-04-03] MEDS: DAKINS HALF STRENGTH (0.25%) 480 ML BOTTLE TOP SCH (09:00)
[2018-04-03] MEDS: CARBIDOPA/LEVODOPA 25/100 MG 1 UDTAB PO SCH (10:06)
[2018-04-03] MEDS: ACIDOPHILUS/BULGARICUS 1 EACH TAB.CHEW PO SCH ×2 (10:06→12:11)
[2018-04-03] MEDS: NYSTATIN/TRIAMCIN CREAM 15 GM TUBE TP SCH (11:14)
--- NOTE | 2018-04-03 11:39 | NUR ---
TEL NOTE , GT resiual checked with 210ml obtained and Joana POWER GRADER OPERATOR was notified and ok to discharge home
[2018-04-03 12:00] VITALS: BP 111/67
[2018-04-03] MEDS: MEROPENEM 1 G in IV NS 0.9% 100 ML IV SCH (12:11)
--- NOTE | 2018-04-03 13:21 | NUR ---
BARREL LINE OPERATOR NOTES CALLED PHARMACY FOR CUBICIN 250 MG IVF. WAITING FOR MEDICATION.
== END 2018-04-03 15:30 | disposition home health service (06) | DRG 853 ==
LOC: ER 05:33 → TELE1 09:44 → TELE-TD 09:47 → TELE1 11:03
PROVIDERS: ATTEND Nurse Practitioner Acute Care
PROC: 0QB10ZZ Excision of Sacrum, Open Approach (ICD-10-PCS; principal; 2018-03-27)
PROC: 02HV33Z Insertion of Infusion Device into Superior Vena Cava, Percutaneous Approach (ICD-10-PCS; 2018-03-30)
PROC: B548ZZA Ultrasonography of Superior Vena Cava, Guidance (ICD-10-PCS; 2018-03-30)
DX: A41.81 Sepsis due to Enterococcus (principal); L89.154 Pressure ulcer of sacral region, stage 4; E43 Unspecified severe protein-calorie malnutrition; G93.41 Metabolic encephalopathy; N17.0 Acute kidney failure with tubular necrosis; J96.01 Acute respiratory failure with hypoxia; R53.2 Functional quadriplegia; J69.0 Pneumonitis due to inhalation of food and vomit; L89.324 Pressure ulcer of left buttock, stage 4; L89.314 Pressure ulcer of right buttock, stage 4; E87.0 Hyperosmolality and hypernatremia; N39.0 Urinary tract infection, site not specified; D68.59 Other primary thrombophilia; J90 Pleural effusion, not elsewhere classified; M86.9 Osteomyelitis, unspecified; N18.9 Chronic kidney disease, unspecified; K21.9 Gastro-esophageal reflux disease without esophagitis; D64.9 Anemia, unspecified; D47.3 Essential (hemorrhagic) thrombocythemia; Z86.718 Personal history of other venous thrombosis and embolism; R13.10 Dysphagia, unspecified; Z93.1 Gastrostomy status; F03.90 Unspecified dementia, unspecified severity, without behavioral disturbance, psychotic disturbance, mood disturbance, and anxiety; Z68.21 Body mass index [BMI] 21.0-21.9, adult; D72.829 Elevated white blood cell count, unspecified; E83.52 Hypercalcemia; E86.1 Hypovolemia; Z85.79 Personal history of other malignant neoplasms of lymphoid, hematopoietic and related tissues; L30.4 Erythema intertrigo; L98.8 Other specified disorders of the skin and subcutaneous tissue; F09 Unspecified mental disorder due to known physiological condition; Z16.21 Resistance to vancomycin; G20 Parkinson's disease
CPT/HCPCS: 31720; 36415; 36569; 71045-TC; 76604-TC; 80048-TC; 80053-TC; 80076-TC; 81000-TC; 82962-TC; 83605-TC; 83735-TC; 83880; 84100-TC; 84484-TC; 85025-TC; 85730-TC; 87040-TC; 87081-TC; 87086-TC; 87186-TC; 93971-TC; 94760-TC; 94762-TC; 94799-TC; A4216; A4217; A6253; A6402; A6403; C1751; G0378; J0878; J2185; J2405; J2765; J3370; J3490; J7030

== ENCOUNTER 2018-04-12 09:15 | Outpatient (CLI) | payer MEDICARE, BC ==
[~2018-04-12 09:15] MED LIST changes: -CALC667C6 PO; -CARB1TAB39 PO; +DAPT500V IV; -DAPT500V2 IV; -LACT-209 GT; -MERO500V3 IV; +METO-295 PO; +NUT.237L25 GT; -VANC1VIA2 IV
== END 2018-04-12 23:59 | disposition home health service (06) ==
LOC: WOU 09:15
PROVIDERS: ATTEND Specialist
DX: L89.154 Pressure ulcer of sacral region, stage 4 (principal); M46.28 Osteomyelitis of vertebra, sacral and sacrococcygeal region; F01.50 Vascular dementia, unspecified severity, without behavioral disturbance, psychotic disturbance, mood disturbance, and anxiety; D50.8 Other iron deficiency anemias; Z93.1 Gastrostomy status; R15.9 Full incontinence of feces; Z86.718 Personal history of other venous thrombosis and embolism; C90.00 Multiple myeloma not having achieved remission
CPT/HCPCS: A6210; A6402; G0463

== ENCOUNTER 2018-04-20 12:35 | Outpatient (CLI) | payer MEDICARE, BC ==
[2018-04-20] MEDS ORDERED: AMIN30LI25 PO (14:00)
[2018-04-20] MEDS ORDERED: NUT.237L25 GT (14:03)
[2018-04-20] MEDS ORDERED: LACT-179 GT (14:03)
[2018-04-21] MEDS ORDERED: LACT-209 GT (14:53)
[2018-04-21] MEDS ORDERED: LACT296L10 GT (17:40)
== END 2018-04-20 23:59 | disposition other institution (70) ==
LOC: WOU 12:35
PROVIDERS: ATTEND Surgery
DX: L89.154 Pressure ulcer of sacral region, stage 4 (principal); R09.02 Hypoxemia; M46.28 Osteomyelitis of vertebra, sacral and sacrococcygeal region; F01.50 Vascular dementia, unspecified severity, without behavioral disturbance, psychotic disturbance, mood disturbance, and anxiety; D50.8 Other iron deficiency anemias; Z86.718 Personal history of other venous thrombosis and embolism; Z93.1 Gastrostomy status; C90.00 Multiple myeloma not having achieved remission
CPT/HCPCS: G0463

== ENCOUNTER 2018-04-20 12:54 | Inpatient (IN) | payer MEDICARE, BC ==
[~2018-04-20] VITALS: Ht 160 cm; Wt 61.2 kg
--- NOTE | 2018-04-20 12:54 | NUR ---
PT BIB DAUGHTER SENT FROM DR SAXENA'S OFFICE FOR O2 DESATURATION, PT IS AAOX0, IN NOTED RESPIRATORY DISTRESS, V/S STABLE, HOOKED TO MONITOR, KEPT RESTED AND COMFORTABLE. WILL CONTINUE TO MONITOR.
--- NOTE | 2018-04-20 13:08 | NUR ---
DR. THURSTON AT BEDSIDE FOR EVAL.
--- NOTE | 2018-04-20 13:19 | NUR ---
DR. PAPPAS AT BEDSIDE FOR EVAL.
[2018-04-20] MEDS ORDERED: ACETAMINOPHEN 325 MG TABLET ONE (13:27)
[2018-04-20] MEDS ORDERED: IV NS 0.9% 1,000 ML BAG IV ONE (13:30)
[2018-04-20] MEDS ORDERED: ACETAMINOPHEN 160 MG/5 ML GT ONE (13:30)
[2018-04-20] MEDS ORDERED: ACETAMINOPHEN 160 MG/5 ML ONE (13:31)
--- NOTE | 2018-04-20 13:36 | NUR ---
GUZZLER BUILDER AT BEDSIDE FOR XRAY.
--- NOTE | 2018-04-20 13:42 | NUR ---
DR MISHRA SPEAKING WITH DR PAPPAS
[2018-04-20 13:50] LABS: BASOPHILS # (AUTO) 0.2 /CMM (0.0-0.2); BASOPHILS % (AUTO) 0.6 % (0.0-2.0); HEMATOCRIT 23 % (33-45); HEMOGLOBIN 7.1 g/dL (11.5-14.8); LYMPHOCYTES # (AUTO) 1.2 /CMM (0.8-4.8); MEAN CORPUSCULAR HGB CONC 30 g/dl (31.0-36.0); MEAN CORPUSCULAR VOLUME 89 fL (82-100); MONOCYTES # (AUTO) 1.1 /CMM (0.1-1.30); MONOCYTES % (AUTO) 3.6 % (2.0-12.0); NEUTROPHILS # (AUTO) 28.7 /CMM (1.8-8.9); NEUTROPHILS % (AUTO) 91.8 % (43.0-81.0); PLATELET COUNT (AUTO) 344 /CMM (150-450); RED BLOOD CELL COUNT(AUTO) 2.61 MIL/uL (4.0-5.2)
[2018-04-20 13:52] LABS: WHITE BLOOD COUNT (AUTO) 31.2 K/uL (4.3-11.0)
--- NOTE | 2018-04-20 13:54 | NUR ---
LABS DRAWNED AND SENT TO LAB.
[2018-04-20] MEDS ORDERED: AMIN30LI25 PO (14:00)
[2018-04-20] MEDS ORDERED: LACT-179 GT (14:03)
[2018-04-20] MEDS ORDERED: NUT.237L25 GT (14:03)
[2018-04-20 14:14] LABS: ALANINE AMINOTRANSFERASE 16 U/L (12-78); ALBUMIN 1.7 g/dL (3.4-5.0); ALKALINE PHOSPHATASE 90 U/L (46-116); ASPARTATE AMINOTRANSFERASE 20 U/L (15-37); BILIRUBIN,DIRECT 0.1 mg/dL (0.0-0.2); BILIRUBIN,TOTAL 0.4 mg/dL (0.2-1.0); CALCIUM, SERUM 9.2 mg/dL (8.5-10.1); CARBON DIOXIDE 31 mmol/L (21-32); CHLORIDE 123 mmol/L (98-107); CREATININE 1.6 mg/dL (0.6-1.3); GLUCOSE 111 mg/dL (74-106); POTASSIUM 3.7 mmol/L (3.5-5.1); TOTAL PROTEIN, SERUM 5.4 g/dL (6.4-8.2); UREA NITROGEN, BLOOD 42 mg/dL (7-18)
[2018-04-20 14:16] LABS: SODIUM SERUM 159 mmol/L (136-145)
--- NOTE | 2018-04-20 14:21 | NUR ---
RT NOTE: PATIENT NT SUCTIONED TO OBTAIN LARGE AMOUNT OF THICK YELLOW/ BLOODY SECRETIONS. PATIENT SP02=96% ON 2LPM OXYGEN VIA NASAL CANNULA.
--- NOTE | 2018-04-20 14:23 | NUR ---
CALLED NURSING SUP FOR TELE BED FOR THIS PATIENT
--- NOTE | 2018-04-20 14:26 | NUR ---
[facility]ED [facility]
--- NOTE | 2018-04-20 14:33 | NUR ---
URINE SPECIMEN COLLECTED AND SENT TO LAB.
[2018-04-20] MEDS ORDERED: IV NS 0.9% 1,000 ML IV PRN (14:43)
--- NOTE | 2018-04-20 14:48 | NUR ---
ADMIT TO 315-1 TELE DX [facility] ACCEPTING [facility]
[2018-04-20 14:56] LABS: BILIRUBIN,URINE Negative (NEGATIVE); BLOOD, URINE Moderate Ery/uL (NEGATIVE); COLOR,URINE Yellow (YELLOW); KETONES,URINE Negative (NEGATIVE); LEUKOCYTE ESTERASE ,URINE Trace (NEGATIVE); NITRITE, URINE Negative (NEGATIVE); PROTEIN,URINE 100 mg/dl (NEGATIVE); UGLUCOSE Negative (NEGATIVE); UROBILINOGEN,URINE 0.2 EU/dL (0.2)
[2018-04-20 15:00] LABS: APPEARANCE,URINE HAZY (CLEAR)
[2018-04-20] MEDS ORDERED: ALBUTEROL FS 2.5 MG/3 ML VIAL.NEB NEB ONE (15:00)
[2018-04-20] MEDS ORDERED: ONDANSETRON HCL/PF 4 MG/2 ML VIAL IVP PRN (15:00)
[2018-04-20] MEDS ORDERED: MAG HYDROX/AL HYDROX/SIMETH 30 ML UDC PO PRN (15:00)
[2018-04-20] MEDS ORDERED: IPRATROPIUM NEB FS 0.5 MG/2.5 ML AMPUL.NEB NEB ONE (15:00)
[2018-04-20] MEDS ORDERED: ACIDOPHILUS/BULGARICUS 1 EACH TAB.CHEW PO SCH (15:00)
[2018-04-20] MEDS ORDERED: MAGNESIUM HYDROXIDE 30 ML UDC PO PRN (15:00)
[2018-04-20] MEDS ORDERED: Z GUARD REMEDY 2 OZ OINT TP PRN (15:00)
[2018-04-20] MEDS ORDERED: ACETAMINOPHEN 325 MG TABLET PO PRN (15:00)
[2018-04-20] MEDS ORDERED: TWOCAL HN 1,000 ML LIQUID GT SCH (15:00)
[2018-04-20] MEDS ORDERED: IV D5W 1,000 ML IV ONE (15:00)
--- NOTE | 2018-04-20 15:09 | NUR ---
REPORT GIVEN TO NERI SELLERS FOR FAUZIA.
[2018-04-20 15:11] LABS: BACTERIA,URINE Few /HPF (None Seen); SQUAMOUS EPITHELIAL CELL,UR Few /HPF (None Seen)
--- NOTE | 2018-04-20 15:45 | NUR ---
SLIPMAN NOTES PATIENT ADMITTED TO UNIT. ARRIVED VIA GURNEY, REPORT RECEIVED FROM FLYNN MILES RN. PATIENT AWAKE, NON-VERBAL. BREATHING EVEN AND UNLABORED. NO ACUTE DISTRESS. NO FACIAL GRIMACE NOTED. NO CHANGES IN LOC. ACCOMPANIED BY DAUGHTER ALEX AND CAREGIVER MARIANN. PATIENT ADMITTED TO UNIT UNDER MEDICAL SUPERVISION OF DR THURSTON, AWARE OF PATIENT ARRIVAL. PATIENT ON O2 AT 2-3L/MIN VIA NC. GT PATENT AND IN PLACE. JOSE PICCLINE PATENT. PATIENT ON TELEMETRY, JIRA ADMINISTRATOR PLACED. SCHMITT CATHETER 16Fr IN PLACE. PER ER REPORT, SCHMITT HAS BEEN IN THE PATIENT PRIOR TO ER ARRIVAL. WILL CONTINUE TO MONITOR. BED LOCKED AND IN LOW POSITION. BILATERAL UPPER SIDE RAILS UP AND LOCKED. MAINTAINED ASPIRATION PRECAUTION. CALL LIGHT WITHIN EASY REACH
[2018-04-20] MEDS ORDERED: CALCIUM ACETATE 667 MG TABLET PO SCH (17:00)
--- NOTE | 2018-04-20 18:00 | NUR ---
PRESS SERVICE READER NOTES PLACED CALL TO PHILG CAREGIVER ([phone]) AND VERIFIED ATB ADMINISTRATION TIMES. PER PHIL, PATIENT RECEIVES CUBICIN DAILY DURING THE DAY AND INVANZ Q12 8A-8P. PHARMACY MADE AWARE. WILL CONTINUE TO MONITOR
[2018-04-20] MEDS: METOCLOPRAMIDE HCL 10 MG TABLET PO SCH (18:20)
[2018-04-20] MEDS: CARBIDOPA/LEVODOPA 25/100 MG 1 UDTAB GT SCH (18:20)
[2018-04-20] MEDS: PROSOURCE / PROSTAT (PYXIS) 30 ML UDC PO SCH (18:20)
[2018-04-20] MEDS: ENSURE ENLIVE CHOC 237 ML CAN GT SCH (18:21)
--- NOTE | 2018-04-20 18:30 | NUR ---
MS RN NOTES LATE NOTE: DAUGHTER AT BEDSIDE VERY ANXIOUS DURING PATIENT ADMISSION, AGREED FOR PATIENT TO HAVE SKIN ASSESSMENT BUT VERY PARTICULAR WITH THE PATIENT'S SACRAL/BUTTOCK WOUND. AGREED TO HAVE PICTURES TAKEN AND WOUND CARE DONE BUT DIDNT WANT TO HAVE MEASUREMENTS DONE AND WANTS PATIENT TO BE UPRIGHT SOON POSSIBLE. RISKS AND BENEFITS EXPLAINED BUT TO NO AVAIL. WILL CONTINUE TO MONITOR
[2018-04-20] MEDS: CALCIUM ACETATE 667 MG TABLET GT SCH (18:47)
--- NOTE | 2018-04-20 18:53 | NUR ---
CHAU[employer]UR AIRPORT LIMOUSINE NOTES PATIENT RESTING INSIDE ROOM. AWAKE, NON-VERBAL. NO CHANGES IN LOC. NO ACUTE DISTRESS. OXYGEN AT 3L/MIN. DENIES ANY PAIN OR DISCOMFORT. NO FACIAL GRIMACE NOTED. PATIENT CALM AND RELAXED. CONTINUE WITH TELEMETRY, ST WITH OCCASIONAL PVCs 110-120'S, MD AWARE. IVF INFUSING TOLERATED. SCHMITT CATHETER IN PLACE. WILL ENDORSE TO INCOMING SHIFT FOR FAUZIA. BED LOCKED AND IN LOW POSITION. BILATERAL UPPER SIDE RAILS UP AND LOCKED. CALL LIGHT WITHIN EASY REACH
[2018-04-20] MEDS: ALBUTEROL FS 2.5 MG/3 ML VIAL.NEB NEB SCH ×2 (19:30→19:38)
--- NOTE | 2018-04-20 19:35 | NUR ---
ELECTRIC WIRER OPENING NOTES RECEIVED PT IN BED, AWAKE, NON VERBAL, BREATHING EVEN AND UNLABORED ON 2L. NO COUGH OR CONGESTION NOTED PIC LINE ON THE JOSE. WITH D5 @100/HR X1. EMT I/[address], SR 102 IN NO APPARENT PAIN OR DISCOMFORT AT THIS TIME BED IN LOWEST LOCKED POSITION, ISO FOR HX OF MRSA NARES. WILL CONTINUE TO MONITOR .
[2018-04-20] MEDS: IPRATROPIUM NEB FS 0.5 MG/2.5 ML AMPUL.NEB NEB PRN (19:58)
[2018-04-20 20:00] VITALS: BP 135/77
[2018-04-20] MEDS: MEROPENEM 1 G in IV NS 0.9% 100 ML IV SCH (20:27)
[2018-04-20] MEDS ORDERED: NYSTATIN/TRIAMCIN CREAM 15 GM TUBE TP SCH (21:00)
[2018-04-21] VITALS (11 sets, daily range): BP systolic 100–134; BP diastolic 55–73
--- NOTE | 2018-04-21 05:30 | NUR ---
PT HAD EPISODE OF SVT FOR 9 MINUTES, HR WENT UP TO 150, NOW BACK TO SR 90s, ROBERT GEOPHYSICAL PROSPECTOR INFORMED, NO RESPIRATORY DISTRESS NOTED, WILL CONTINUE TO MONITOR.
--- NOTE | 2018-04-21 06:27 | NUR ---
SYSTEM OPERATION SUPERINTENDENT CLOSING NOTES PT REMAINS IN BED, SLEEPING INTERMITTENTLY, EASILY AROUSED, OPENS EYES AND FOLLOWS VOICE, BREATHING EVEN AND UNLABORED ON 2L O2 NC SATING AT 100. SKIN CARVER IN PLACE AND MONITORING SR MID 90s. SCHMITT IN PLACE AND COLLECTING YELLOW CLEAR URINE. SACRAL WOUND PACKED AND DRESSED. BED IN LOWEST LOCKED POSITION, WILL ENDORSE TO DAY NURSE FOR FAUZIA
[2018-04-21] MEDS: ALBUTEROL FS 2.5 MG/3 ML VIAL.NEB NEB SCH ×4 (07:37→19:45)
--- NOTE | 2018-04-21 07:45 | NUR ---
RN OPENING NOTE PT WAS RECEIVED IN BED AT LOWEST AND LOCKED POSITION WITH SIDE RAILS UP X2, A/O X0 OBTUNDED AND NONVERBAL, BREATHING EVEN AND UNLABORED ON 2L VIA NC, NO CURRENT COMPLAINTS OF PAIN OR DISTRESS NOTED, IV IS PATENT AND INTACT, SAFETY PRECAUTIONS IN PLACE, CALL LIGHT WITHIN REACH, WILL MONITOR ACCORDINGLY.
[2018-04-21 07:54] LABS: BASOPHILS % (AUTO) 0.1 % (0.0-2.0); EOSINOPHILS % (AUTO) 0.9 % (0.0-6.0); LYMPHOCYTES # (AUTO) 1.2 /CMM (0.8-4.8); LYMPHOCYTES % (AUTO) 6.3 % (20.0-44.0); MEAN CORPUSCULAR HGB CONC 31 g/dl (31.0-36.0); MEAN CORPUSCULAR VOLUME 89 fL (82-100); MONOCYTES # (AUTO) 0.6 /CMM (0.1-1.30); MONOCYTES % (AUTO) 3.3 % (2.0-12.0); NEUTROPHILS # (AUTO) 16.6 /CMM (1.8-8.9); NEUTROPHILS % (AUTO) 89.4 % (43.0-81.0); PLATELET COUNT (AUTO) 278 /CMM (150-450); RED BLOOD CELL COUNT(AUTO) 2.15 MIL/uL (4.0-5.2); WHITE BLOOD COUNT (AUTO) 18.6 K/uL (4.3-11.0)
[2018-04-21 08:13] LABS: HEMATOCRIT 19 % (33-45); HEMOGLOBIN 5.9 g/dL (11.5-14.8)
[2018-04-21 08:32] LABS: CALCIUM, SERUM 8.9 mg/dL (8.5-10.1); CARBON DIOXIDE 28 mmol/L (21-32); CHLORIDE 121 mmol/L (98-107); CREATININE 1.5 mg/dL (0.6-1.3); GLUCOSE 99 mg/dL (74-106); PHOSPHORUS 3.9 mg/dL (2.5-4.9); POTASSIUM 3.5 mmol/L (3.5-5.1); UREA NITROGEN, BLOOD 39 mg/dL (7-18)
[2018-04-21 08:36] LABS: SODIUM SERUM 159 mmol/L (136-145)
[2018-04-21 08:37] LABS: BAND % (MANUAL) 2 % (0.0-5.0); BASOPHILS % (MANUAL) 1 % (0.0-2.0); EOSINOPHILS % (MANUAL) 2 % (0-4); LYMPHOCYTES % (MANUAL) 5 % (16-48); MONOCYTES % (MANUAL) 1 % (0-11.0); NEUTROPHILS % (MANUAL) 89 (42-76)
[2018-04-21] MEDS ORDERED: DAPTOMYCIN 500 MG/VIAL VIAL IV SCH (09:00)
[2018-04-21] MEDS: PANTOPRAZOLE 40 MG/PACK PACK GT SCH (09:11)
[2018-04-21] MEDS: MEROPENEM 1 G in IV NS 0.9% 100 ML IV SCH ×2 (09:12→20:27)
[2018-04-21] MEDS: ENSURE ENLIVE CHOC 237 ML CAN GT SCH ×2 (09:13→16:10)
[2018-04-21] MEDS: PROSOURCE / PROSTAT (PYXIS) 30 ML UDC PO SCH ×2 (09:13→16:10)
[2018-04-21] MEDS: DAKINS QUARTER STRENGTH (0.125%) 480 ML BOTTLE TOP SCH (09:14)
[2018-04-21] MEDS: METOCLOPRAMIDE HCL 10 MG TABLET PO SCH ×3 (09:18→16:09)
[2018-04-21] MEDS: CALCIUM ACETATE 667 MG TABLET GT SCH ×3 (09:18→16:09)
[2018-04-21] MEDS: CARBIDOPA/LEVODOPA 25/100 MG 1 UDTAB GT SCH ×2 (09:18→16:09)
[2018-04-21] MEDS: ACIDOPHILUS/BULGARICUS 1 EACH TAB.CHEW PO SCH ×3 (09:18→16:09)
[2018-04-21] MEDS: IV D5W 1,000 ML IV SCH (09:24)
[2018-04-21] MEDS ORDERED: FUROSEMIDE 20 MG/2 ML VIAL IV ONE (10:00)
[2018-04-21] MEDS: DAPTOMYCIN IV SCH (10:02)
[2018-04-21] MEDS: NS 0.9% IV SCH (10:02)
--- NOTE | 2018-04-21 11:38 | NUR ---
WOUND CARE CONSULT WOUND CARE RECEIVED CONSULT FOR SACRAL WOUND. WOUND CARE WILL DEFER CONSULT AND ALL TREATMENT PLANS TO PLASTIC SURGICAL TEAM WHO HAVE BEEN NOTIFIED OF THIS CONSULT. PATIENT WITH DONN AT 10, ALL PRESSURE ULCER PREVENTION MEASURES ARE NOTED TO BE IN PLACE AT THIS TIME. WILL SEE PRN.
--- NOTE | 2018-04-21 13:30 | NUR ---
RN NOTE BLOOD WAS GOTTEN FROM THE BLOOD BANK AT THIS TIME. ALSO DR. MOORE WILL BE PERFORMING DEBRIDMENT AT THIS TIME ON THE SACRUM WITH CONSENTS SIGNED. WILL MONITOR AND IMPLEMENT ACCORDINGLY
[2018-04-21] MEDS ORDERED: LIDOCAINE 1%-EPI 1:200,000 SDV 10 ML VIAL IJ STA (13:31)
[2018-04-21] MEDS ORDERED: LACT-209 GT (14:53)
--- NOTE | 2018-04-21 15:20 | NUR ---
RN NOTE EPIC EXCHANGE WAS CALLED AND TALKED TO NELIDA WHO STATED COULD NOT BE REACHED DUE TO HER NOT BEING MAINTENANCE PARTS TECHNICIAN BUT SHE WAS INFORMED THAT IT WAS CRITICAL INFORMATION BUT SHE STILL STATED SHE COULD NOT REACH HER. DR. GARNER WAS INFORMED OF WHAT HAPPENED, WILL MONITOR ACCORDINGLY AND AWAIT RESPOSNE
--- NOTE | 2018-04-21 15:40 | NUR ---
RN NOTE EXCHANGE WAS CALLED AND NOTIFIED IN ORDER TO REACH REGARDING PT US OF DVT IN THE SUBCLAVIAN VEIN, NELIDA FROM EXCHANGE SAID SHE WOULD PAGE THE DOCTOR AT THIS TIME. WILL AWAIT RESPONSE.
--- NOTE | 2018-04-21 16:15 | NUR ---
RN NOTE DR. GARNER WAS MESSAGED REGARDING PT CONDITION AND INFORMED OF US RESULT OF DVT OF RIGHT SUBCLAVIAN VEIN DUE TO NOT BEING ABLE TO GET A HOLD OF . HE STATED TO CALL DR. THURSTON. WILL TRY TO REACH AGAIN.
--- NOTE | 2018-04-21 16:32 | NUR ---
RN NOTE EXCHANGE CALLED BACK AND SAID THEY WOULD TRY TO REPAGE AGAIN, WILL AWAIT RESPONSE AND MONITOR ACCORDINGLY
--- NOTE | 2018-04-21 16:37 | NUR ---
RN NOTE CALLED BACK AT THIS TIME AND WAS INFORMED OF PT CONDITION, SHE STATED TO CALL AND INFORM HER. WILL IMPLEMENT AND MONITOR ACCORDINGLY
--- NOTE | 2018-04-21 16:53 | NUR ---
RN NOTE DR. MISHRA WAS CALLED AND WAS INFORMED OF THE SITUATION AND SHE STATED THAT SHE WOULD BE COMING TO SEE THE PATIENT BUT NO FURTHER ORDERS AT THIS TIME. WILL MONITOR ACCORDINGLY
[2018-04-21] MEDS ORDERED: LACT296L10 GT (17:40)
--- NOTE | 2018-04-21 18:45 | NUR ---
RN CLOSING NOTE PT IN BED AT LOWEST AND LOCKED POSITION WITH SIDE RAILS UP X2, A/O X0 OBTUNDED AND NONVERBAL, BREATHING EVEN AND UNLABORED ON 2L VIA NC, NO S/S OF PAIN OR DISTRESS NOTED, JOSE PICC WAS D/C AND LEFT FA/WRIST IV GAUGE 22 WAS PLACED AND IS PATENT AND INTACT, SAFETY PRECAUTIONS IN PLACE, CALL LIGHT WITHIN REACH, WILL ENDORSE TO INTELLIGENCE CHIEF RN FOR FAUZIA.
--- NOTE | 2018-04-21 19:30 | NUR ---
MS/RN RECEIVE PATIENT AWAKE, NON VERBAL, COMFORTABLE, NO SIGNS OF DISTRESS NOTED, HOB ELEVATED, GT FEEDING INFUSING PER DAUGHTER'S REQUEST, DAUGHTER AT BEDSIDE. WILL MONITOR.
[2018-04-21] MEDS: HEPARIN SODIUM, PORCINE 5000 UNITS/1 ML VIAL SQ SCH (22:01)
--- NOTE | 2018-04-21 22:44 | NUR ---
MS/RN HEPARIN WAS GIVEN AT [address] MISHRA'S ORDER. PER DR. MISHRA OK TO START HEPARIN DUE TO DVT OF THE RT. SC VEIN, EVEN IF HG DROPPED THERE IS NO SIGNS OF ACTIVE BLEEDING.
--- NOTE | 2018-04-22 03:07 | NUR ---
MS/RN PATIENT IS SLEEPING, AROUSABLE, APPEAR COMFORTABLE, NO SIGNS OF DISTRESS NOTED, HOB ELEVATED, WILL CONTINUE TO MONITOR.
[2018-04-22] MEDS: IV D5W 1,000 ML IV SCH ×3 (04:07→19:56)
[2018-04-22 06:26] LABS: BASOPHILS % (AUTO) 0.2 % (0.0-2.0); EOSINOPHILS % (AUTO) 3.3 % (0.0-6.0); HEMATOCRIT 25 % (33-45); HEMOGLOBIN 7.9 g/dL (11.5-14.8); LYMPHOCYTES # (AUTO) 1.1 /CMM (0.8-4.8); LYMPHOCYTES % (AUTO) 8.7 % (20.0-44.0); MEAN CORPUSCULAR HGB CONC 32 g/dl (31.0-36.0); MEAN CORPUSCULAR VOLUME 88 fL (82-100); MONOCYTES # (AUTO) 0.5 /CMM (0.1-1.30); MONOCYTES % (AUTO) 4.3 % (2.0-12.0); NEUTROPHILS # (AUTO) 10.2 /CMM (1.8-8.9); NEUTROPHILS % (AUTO) 83.5 % (43.0-81.0); PLATELET COUNT (AUTO) 245 /CMM (150-450); RED BLOOD CELL COUNT(AUTO) 2.82 MIL/uL (4.0-5.2); WHITE BLOOD COUNT (AUTO) 12.2 K/uL (4.3-11.0)
[2018-04-22 06:28] LABS: CALCIUM, SERUM 9.1 mg/dL (8.5-10.1); CARBON DIOXIDE 31 mmol/L (21-32); CHLORIDE 116 mmol/L (98-107); CREATININE 1.4 mg/dL (0.6-1.3); GLUCOSE 101 mg/dL (74-106); MAGNESIUM 1.9 mg/dL (1.8-2.4); PHOSPHORUS 3.3 mg/dL (2.5-4.9); SODIUM SERUM 153 mmol/L (136-145); UREA NITROGEN, BLOOD 37 mg/dL (7-18)
--- NOTE | 2018-04-22 06:55 | NUR ---
MS/RN PATIENT APPEAR SLEEPING, APPEAR COMFORTABLE, NO DISTRESS NOTED, HOB ELEVATED, ALL NEEDS ATTENDED AT THIS TIME, WILL CONTINUE TO MONITOR.
[2018-04-22] MEDS: ALBUTEROL FS 2.5 MG/3 ML VIAL.NEB NEB SCH ×4 (07:13→19:30)
--- NOTE | 2018-04-22 07:30 | NUR ---
RN MS NOTES Received patient with no sob or ventilatory distress noted. Patient on 2L nasal cannula, saturating well with no sob or ventilatory distress noted.
[2018-04-22 08:00] VITALS: BP 129/71
[2018-04-22] MEDS: MEROPENEM 1 G in IV NS 0.9% 100 ML IV SCH ×2 (08:18→19:59)
[2018-04-22] MEDS: METOCLOPRAMIDE HCL 10 MG TABLET PO SCH ×3 (08:38→17:31)
[2018-04-22] MEDS: ACIDOPHILUS/BULGARICUS 1 EACH TAB.CHEW PO SCH ×3 (08:38→17:31)
[2018-04-22] MEDS: PANTOPRAZOLE 40 MG/PACK PACK GT SCH (08:38)
[2018-04-22] MEDS: CARBIDOPA/LEVODOPA 25/100 MG 1 UDTAB GT SCH ×2 (08:38→17:31)
[2018-04-22] MEDS: CALCIUM ACETATE 667 MG TABLET GT SCH ×3 (08:38→17:31)
[2018-04-22] MEDS: PROSOURCE / PROSTAT (PYXIS) 30 ML UDC PO SCH ×2 (08:41→17:31)
[2018-04-22] MEDS: ENSURE ENLIVE CHOC 237 ML CAN GT SCH (08:42)
[2018-04-22] MEDS: HEPARIN SODIUM, PORCINE 5000 UNITS/1 ML VIAL SQ SCH ×2 (08:55→21:55)
[2018-04-22] MEDS: DAKINS QUARTER STRENGTH (0.125%) 480 ML BOTTLE TOP SCH (09:02)
[2018-04-22] MEDS: JEVITY 1.2 CAL 1,000 ML BOTTLE GT SCH (09:07)
--- NOTE | 2018-04-22 09:20 | NUR ---
RN MS NOTES Patient is now on Jevity 1.2 GT feeding, 60 ml/hour per order. Feeding is flowing with no obstructions noted. Sitter is with patient bedside.
[2018-04-22] MEDS: NS 0.9% IV SCH (09:39)
[2018-04-22] MEDS: DAPTOMYCIN IV SCH (09:39)
[2018-04-22 16:00] VITALS: BP 126/73
--- NOTE | 2018-04-22 18:13 | NUR ---
RN CLOSING NOTES Patient remains to be on 2 L nasal cannula, no sob or ventilatory distress noted. Patient not demonstrating any pain at this time, picc line nurse tried to put a LUE picc line but failed, she stated that they will try again tomorrow. No bleeding noted from the site. Call light within reach and all safety measures in place.
--- NOTE | 2018-04-22 19:35 | NUR ---
MS/RN RECEIVE PATIENT AWAKE, FLAT AFFECT, NON VERBAL, APPEAR COMFORTABLE, NO SIGNS OF DISTRESS NOTED, HOB ELEVATED, CALL LIGHT IN REACH. WILL MONITOR.
[2018-04-22 20:00] VITALS: BP 126/75
--- NOTE | 2018-04-23 06:33 | NUR ---
MS/RN PATIENT IS AWAKE, APPEAR COMFORTABLE, NO SIGNS OF DISTRESS NOTED, ALL NEEDS ATTENDED AT THIS TIME. HAD AN ON AND OFF SLEEP THE WHOLE SHIFT. WILL CONTINUE TO MONITOR.
[2018-04-23 06:37] LABS: BASOPHILS % (AUTO) 0.2 % (0.0-2.0); EOSINOPHILS % (AUTO) 3.5 % (0.0-6.0); HEMATOCRIT 23 % (33-45); HEMOGLOBIN 7.5 g/dL (11.5-14.8); LYMPHOCYTES # (AUTO) 0.9 /CMM (0.8-4.8); LYMPHOCYTES % (AUTO) 10.5 % (20.0-44.0); MEAN CORPUSCULAR HGB CONC 33 g/dl (31.0-36.0); MEAN CORPUSCULAR VOLUME 87 fL (82-100); MONOCYTES # (AUTO) 0.4 /CMM (0.1-1.30); MONOCYTES % (AUTO) 4.9 % (2.0-12.0); NEUTROPHILS # (AUTO) 7.2 /CMM (1.8-8.9); NEUTROPHILS % (AUTO) 80.9 % (43.0-81.0); PLATELET COUNT (AUTO) 224 /CMM (150-450); RED BLOOD CELL COUNT(AUTO) 2.65 MIL/uL (4.0-5.2); WHITE BLOOD COUNT (AUTO) 8.9 K/uL (4.3-11.0)
[2018-04-23 06:42] LABS: ALANINE AMINOTRANSFERASE 8 U/L (12-78); ALKALINE PHOSPHATASE 81 U/L (46-116); ASPARTATE AMINOTRANSFERASE 20 U/L (15-37); BILIRUBIN,TOTAL 0.4 mg/dL (0.2-1.0); CALCIUM, SERUM 8.4 mg/dL (8.5-10.1); CARBON DIOXIDE 26 mmol/L (21-32); CHLORIDE 101 mmol/L (98-107); CREATININE 1.4 mg/dL (0.6-1.3); MAGNESIUM 1.7 mg/dL (1.8-2.4); PHOSPHORUS 2.7 mg/dL (2.5-4.9); SODIUM SERUM 134 mmol/L (136-145); TOTAL PROTEIN, SERUM 4.2 g/dL (6.4-8.2); UREA NITROGEN, BLOOD 39 mg/dL (7-18)
[2018-04-23 07:19] LABS: ALBUMIN 1.2 g/dL (3.4-5.0); GLUCOSE 416 mg/dL (74-106)
[2018-04-23] MEDS: ALBUTEROL FS 2.5 MG/3 ML VIAL.NEB NEB SCH ×4 (07:31→18:53)
--- NOTE | 2018-04-23 07:40 | NUR ---
RN OPENING NOTES Patients blood glucose 416 according to lab, dr valencia texted and responded to begin blood glucose check q6 to go along with sliding scale.
[2018-04-23] MEDS: PANTOPRAZOLE 40 MG/PACK PACK GT SCH (07:48)
[2018-04-23] MEDS: MEROPENEM 1 G in IV NS 0.9% 100 ML IV SCH ×2 (07:49→22:07)
[2018-04-23 08:00] VITALS: BP 110/60
[2018-04-23] MEDS ORDERED: INSULIN REGULAR, HUMAN 100 UNIT/ML 3 ML VIAL SQ PRN (08:00)
[2018-04-23] MEDS ORDERED: DEXTROSE 50%-WATER 50 ML DISP.SYRIN IV PRN (08:00)
--- NOTE | 2018-04-23 08:10 | NUR ---
RN MS NOTES Took patients blood glucose levels twice, different site each time. Blood glucose levels of 84 and 87 were taken.
[2018-04-23] MEDS: METOCLOPRAMIDE HCL 10 MG TABLET PO SCH ×3 (08:17→16:19)
[2018-04-23] MEDS: CALCIUM ACETATE 667 MG TABLET GT SCH ×3 (08:17→16:19)
[2018-04-23] MEDS: CARBIDOPA/LEVODOPA 25/100 MG 1 UDTAB GT SCH ×2 (08:17→16:19)
[2018-04-23] MEDS: ACIDOPHILUS/BULGARICUS 1 EACH TAB.CHEW PO SCH ×3 (08:17→16:19)
[2018-04-23] MEDS: HEPARIN SODIUM, PORCINE 5000 UNITS/1 ML VIAL SQ SCH ×2 (08:32→22:07)
[2018-04-23] MEDS: DAKINS QUARTER STRENGTH (0.125%) 480 ML BOTTLE TOP SCH (08:35)
[2018-04-23] MEDS: PROSOURCE / PROSTAT (PYXIS) 30 ML UDC PO SCH ×2 (09:14→16:19)
[2018-04-23] MEDS: NS 0.9% IV SCH (09:14)
[2018-04-23] MEDS: DAPTOMYCIN IV SCH (09:14)
[2018-04-23] MEDS: JEVITY 1.2 CAL 1,000 ML BOTTLE GT SCH (09:20)
[2018-04-23 09:22] LABS: BAND % (MANUAL) 1 % (0.0-5.0); EOSINOPHILS % (MANUAL) 2 % (0-4); LYMPHOCYTES % (MANUAL) 7 % (16-48); MONOCYTES % (MANUAL) 2 % (0-11.0); MYELOCYTES % 1 % (0-0); NEUTROPHILS % (MANUAL) 87 (42-76)
[2018-04-23] MEDS ORDERED: IV D5W 1,000 ML IV PRN (09:38)
[2018-04-23] MEDS: BLOOD SUGAR DIAGNOSTIC 1 EACH STRIP IN SCH ×3 (10:03→18:44)
[2018-04-23] MEDS ORDERED: MAGNESIUM OXIDE 400 MG TABLET PO ONE (12:00)
[2018-04-23] MEDS ORDERED: FUROSEMIDE 20 MG/2 ML VIAL IV ONE (14:00)
[2018-04-23 16:00] VITALS: BP 119/71
--- NOTE | 2018-04-23 18:13 | NUR ---
RN MS CLOSING NOTES Patient remains bed bound, no sob or ventilatory distress noted on 2 L o2 nasal cannula. Patient had a PICC line placed on her left upper arm, no bleeding noted from the site, and xray results reveals good position of the line. There is a blood transfusion pending due to cross type and match results from the lab. Patient had 9 hours of 60 ml/hr feeding of jevity 1.2. Patients IV infusion rate remains at 50 ml/hour. Able to pass medications on her g tube without resistance of any kind, and residuals remains <100 ml. Patient shows no pain, vital signs remain stable. All safety measures in place.
--- NOTE | 2018-04-23 19:00 | NUR ---
NERI MS NOTES RECEIVED PATIENT IN BED , AWAKE AND ALERT NONVERBAL FLAT AFFECT, RESPIRATIONS EVEN AND UNLABORED WITH EQUAL RISE AND FALL OF CHEST, APPEARS TO BE FREE OF PAIN NO GRUNTS.NO MOANS PRESENT HEAD OF BED ELEVATED FOR ASPIRATION PRECAUTION GTUBE INTACT AND PATENT, FEEDING CURRENTLY NOT RUNNING ONLY X 9 HOURS, SCHMITT INTACT AND DRAINING WELL, LEFT UPPER ARM PICC LINE, DRESSING CLEAN AND INTACT, SAFETY PRECAUTIONS IN PLACE, , ALL NEEDS ATTENDED WILL CONTINUE TO MONITOR PATIENT REPOSITIONED. Addendum: 04/24/18 at 0750 by SHARMIN DUNN RN RN MS OPENING NOTES
--- NOTE | 2018-04-23 19:40 | NUR ---
RN MS NOTES PER DR. BERTRAND MCGUIRE TO GIVE HEPARIN.
[2018-04-23 20:00] VITALS: BP 115/70
[2018-04-23 20:16] VITALS: BP 120/72
[2018-04-24] VITALS (7 sets, daily range): BP systolic 102–120; BP diastolic 57–66
--- NOTE | 2018-04-24 00:13 | NUR ---
RN MS NOTES BLOOD TRANSFUSION STARTED WILL CONTINUE TO MONITOR .
--- NOTE | 2018-04-24 03:19 | NUR ---
RN MS NOTES S/P BLOOD TRANSFUSION NO REACTIONS, VS WNL 120/66,18,94,100% 97.6
[2018-04-24] MEDS ORDERED: FUROSEMIDE 20 MG/2 ML VIAL ONE (03:59)
[2018-04-24] MEDS: BLOOD SUGAR DIAGNOSTIC 1 EACH STRIP IN SCH ×3 (05:49→12:10)
[2018-04-24 06:51] LABS: BASOPHILS % (AUTO) 0.4 % (0.0-2.0); EOSINOPHILS % (AUTO) 2.8 % (0.0-6.0); HEMATOCRIT 31 % (33-45); HEMOGLOBIN 10.3 g/dL (11.5-14.8); LYMPHOCYTES # (AUTO) 0.9 /CMM (0.8-4.8); LYMPHOCYTES % (AUTO) 8.8 % (20.0-44.0); MEAN CORPUSCULAR HGB CONC 34 g/dl (31.0-36.0); MEAN CORPUSCULAR VOLUME 86 fL (82-100); MONOCYTES # (AUTO) 0.4 /CMM (0.1-1.30); MONOCYTES % (AUTO) 4.5 % (2.0-12.0); NEUTROPHILS # (AUTO) 8.1 /CMM (1.8-8.9); NEUTROPHILS % (AUTO) 83.5 % (43.0-81.0); PLATELET COUNT (AUTO) 217 /CMM (150-450); RED BLOOD CELL COUNT(AUTO) 3.56 MIL/uL (4.0-5.2); WHITE BLOOD COUNT (AUTO) 9.7 K/uL (4.3-11.0)
[2018-04-24 07:11] LABS: CALCIUM, SERUM 9.2 mg/dL (8.5-10.1); CARBON DIOXIDE 28 mmol/L (21-32); CHLORIDE 107 mmol/L (98-107); CREATININE 1.4 mg/dL (0.6-1.3); GLUCOSE 92 mg/dL (74-106); PHOSPHORUS 3.2 mg/dL (2.5-4.9); POTASSIUM 4.4 mmol/L (3.5-5.1); SODIUM SERUM 142 mmol/L (136-145); UREA NITROGEN, BLOOD 44 mg/dL (7-18)
--- NOTE | 2018-04-24 07:20 | NUR ---
RN MS CLOSING NOTES PATIENT IN BED , AWAKE AND ALERT X1, NONVERBAL, FLAT AFFECT, RESPIRATIONS EVEN AND UNLABORED WITH EQUAL RISE AND FALL OF CHEST ON 2 LITERS VIA NC O2 SAT 96-100%, APPEARS TO BE FREE OF PAIN NO GRUNTS.NO MOANS PRESENT, NO RESPIRATORY DISTRESS, HEAD OF BED ELEVATED FOR ASPIRATION PRECAUTION, GTUBE INTACT AND PATENT, SCHMITT INTACT AND DRAINING WELL, LEFT UPPER ARM PICC LINE, PATIENT NOTED TO HAVE BUE AND BLE +3 PITTING EDEMA, ARMS OFFLOADED , LEGS AND HEELS OFFLOADED, DRESSING CHANGED CLEAN, DRY AND INTACT, PICTURES IN CHART, REPOSITIONED FREQUENTLY, TOLERATED BLOOD TRANSFUSION WELL, NO ADVERSE REACTIONS, NO CHANGE IN CONDITION, LASIX GIVEN ORDERED, VS WNL, SAFETY PRECAUTIONS IN PLACE, , ALL NEEDS ATTENDED WILL CONTINUE TO MONITOR AND ENDORSE TO NEXT SHIFT.
[2018-04-24 07:30] LABS: BAND % (MANUAL) 1 % (0.0-5.0); EOSINOPHILS % (MANUAL) 2 % (0-4); LYMPHOCYTES % (MANUAL) 13 % (16-48); MONOCYTES % (MANUAL) 2 % (0-11.0); MYELOCYTES % 1 % (0-0); NEUTROPHILS % (MANUAL) 81 (42-76)
--- NOTE | 2018-04-24 07:45 | NUR ---
MS RN OPENING NOTES RECEIVED PT RESTING IN BED, EASILY AWAKEN. A/O X 1, NON VERBAL. HOB ELEVATED, HEELS FLOATED. ON SUPPLEMENTAL OXYGEN AT 2LPM, WITH NO SIGNS OF ACUTE RESPIRATORY DISTRESS. IVF D5W TO HARINDER PICC LINE AT 50ML/HR, INTACT AND OPERATIONAL. BLE AND BUE EDEMA PITTING +3 NOTED. FOR STOOL COLLECTION FOR OB. KEPT BED IN LOW, LOCKED POSITION WITH SR X2. CALL LIGHT WITHIN REACH. WILL CONTINUE PLAN OF CARE.
[2018-04-24] MEDS: CALCIUM ACETATE 667 MG TABLET GT SCH ×2 (08:22→13:00)
[2018-04-24] MEDS: PANTOPRAZOLE 40 MG/PACK PACK GT SCH (08:22)
[2018-04-24] MEDS: ACIDOPHILUS/BULGARICUS 1 EACH TAB.CHEW PO SCH ×2 (08:22→13:00)
[2018-04-24] MEDS: METOCLOPRAMIDE HCL 10 MG TABLET PO SCH ×2 (08:22→13:00)
[2018-04-24] MEDS: CARBIDOPA/LEVODOPA 25/100 MG 1 UDTAB GT SCH (08:22)
[2018-04-24] MEDS: DAKINS QUARTER STRENGTH (0.125%) 480 ML BOTTLE TOP SCH (08:24)
[2018-04-24] MEDS: PROSOURCE / PROSTAT (PYXIS) 30 ML UDC PO SCH (08:24)
[2018-04-24] MEDS: HEPARIN SODIUM, PORCINE 5000 UNITS/1 ML VIAL SQ SCH (08:25)
[2018-04-24] MEDS: ALBUTEROL FS 2.5 MG/3 ML VIAL.NEB NEB SCH ×2 (08:26→11:30)
[2018-04-24] MEDS: IPRATROPIUM NEB FS 0.5 MG/2.5 ML AMPUL.NEB NEB PRN (08:27)
[2018-04-24] MEDS: MEROPENEM 1 G in IV NS 0.9% 100 ML IV SCH (08:31)
[2018-04-24] MEDS: NS 0.9% IV SCH (11:22)
[2018-04-24] MEDS: DAPTOMYCIN IV SCH (11:22)
--- NOTE | 2018-04-24 13:31 | NUR ---
MS LEAD PROGRAMMER ANALYST NOTES PT TRANSFERRED TO WHEELCHAIR TO DISCHARGE TO HOME. A/O X 1, NON VERBAL. WITH NO SIGNS OF ACUTE RESPIRATORY DISTRESS. PICC LINE NOT REMOVED, TO CONTINUE IV ATB AT HOME. SCHMITT CATH IN PLACE, URINE DRAINING WELL TO THE BAG. ACCOMPANIED BY CAREGIVER WITH ACCESSIBLE VAN. REVIEWED AND SIGNED DISCHARGE INSTRUCTION AND INVENTORY LIST BY CAREGIVER. PRESCRIPTION OF ELIQUIS INCLUDED IN THE PACKET PER MD REYNA TO START AT HOME FOR DVT. ALL BELONGINGS WITH THE PT AND CAREGIVER. PT AND CAREGIVER ESCORTED TO THE LOBBY. LEFT THE UNIT AT 1250. CN AND AWARE.
--- NOTE | 2018-04-27 14:00 | NUR ---
DISCHARGE F/U CALL NOTES CALLED ANASTASIA AND HE STATED THAT HIS IS UNDER THE CARE OF [facility].ANASTASIA VERBALIZED DISAPPOINTMENT IN [facility] AND REFUSED TO EXPLAIN THE REASON WHY SO WE CAN IMPROVE OUR SERVICE.ANASTASIA REFUSED TO ANSWER THE REST OF THE QUESTIONS AND HANGED UP.
== END 2018-04-24 13:30 | disposition home health service (06) | DRG 853 ==
LOC: ER 12:56 → TELE 14:50 → MED 04-21 08:43
PROVIDERS: ADMIT Internal Medicine; ATTEND Internal Medicine
PROC: 30233N1 Transfusion of Nonautologous Red Blood Cells into Peripheral Vein, Percutaneous Approach (ICD-10-PCS; principal; 2018-04-21)
PROC: 0QB10ZZ Excision of Sacrum, Open Approach (ICD-10-PCS; 2018-04-21)
PROC: 0JBM0ZZ Excision of Left Upper Leg Subcutaneous Tissue and Fascia, Open Approach (ICD-10-PCS; 2018-04-21)
PROC: 02HV33Z Insertion of Infusion Device into Superior Vena Cava, Percutaneous Approach (ICD-10-PCS; 2018-04-22)
PROC: B548ZZA Ultrasonography of Superior Vena Cava, Guidance (ICD-10-PCS; 2018-04-22)
DX: A41.9 Sepsis, unspecified organism (principal); L89.323 Pressure ulcer of left buttock, stage 3; L89.314 Pressure ulcer of right buttock, stage 4; L89.324 Pressure ulcer of left buttock, stage 4; L89.154 Pressure ulcer of sacral region, stage 4; J69.0 Pneumonitis due to inhalation of food and vomit; E43 Unspecified severe protein-calorie malnutrition; R53.2 Functional quadriplegia; G93.41 Metabolic encephalopathy; N17.0 Acute kidney failure with tubular necrosis; D68.59 Other primary thrombophilia; C90.01 Multiple myeloma in remission; I82.621 Acute embolism and thrombosis of deep veins of right upper extremity; E87.0 Hyperosmolality and hypernatremia; M46.28 Osteomyelitis of vertebra, sacral and sacrococcygeal region; N18.9 Chronic kidney disease, unspecified; D64.9 Anemia, unspecified; K21.9 Gastro-esophageal reflux disease without esophagitis; D47.3 Essential (hemorrhagic) thrombocythemia; Z93.1 Gastrostomy status; Z87.01 Personal history of pneumonia (recurrent); Z86.718 Personal history of other venous thrombosis and embolism; Z92.21 Personal history of antineoplastic chemotherapy; L98.9 Disorder of the skin and subcutaneous tissue, unspecified; F03.90 Unspecified dementia, unspecified severity, without behavioral disturbance, psychotic disturbance, mood disturbance, and anxiety
CPT/HCPCS: 31720; 36415; 36569; 71045-TC; 80048-TC; 80053-TC; 80076-TC; 81000-TC; 82962-TC; 83605-TC; 83735-TC; 84100-TC; 84484-TC; 85025-TC; 85730-TC; 86850-TC; 86921-TC; 87040-TC; 87081-TC; 87086-TC; 93971-TC; 94760-TC; 94799-TC; A4216; A4624; A6253; A6402; A6403; C1751; G0378; J0878; J1644; J1815; J1940; J2185; J3490; J7030; J7040; J7042; J7050; J7060; J7070; J8597; P9016-BL